=== PATIENT | male | born 1955 | race Two or more races ===

== ENCOUNTER 2023-12-11 00:14 | Emergency (ER) | payer MEDICARE, MEDICAID, SELFPAY ==
--- NOTE | 2023-12-11 | ECG_ITS ---
Test Reason : htn Blood Pressure : / mmHG Vent. Rate : 063 BPM Atrial Rate : 063 BPM P-R Int : 174 ms QRS Dur : 086 ms QT Int : 474 ms P-R-T Axes : 064 016 050 degrees QTc Int : 485 ms Normal sinus rhythm Moderate voltage criteria for LVH, may be normal variant ( Sokolow-Castillo , Flynn product ) Cannot rule out Anterior infarct , age undetermined Abnormal ECG No previous ECGs available Referred By: Jaime Moore Electronically Signed By:EDGAR MYLES
--- NOTE | ~2023-12-11 | CT_ITS ---
EXAMINATION: CT HEAD WITHOUT CONTRAST CT CERVICAL SPINE WITHOUT CONTRAST CLINICAL INFORMATION: Fall. Pain. COMPARISON: None available. TECHNIQUE: Contiguous axial imaging was performed through the head and cervical spine without intravenous administration of contrast. Sagittal and coronal reformatted images also obtained. This CT examination was performed using dose optimization techniques as appropriate, variously including the following: *Automated exposure control *Adjustment of mA and/or kV according to patient size (this includes techniques or standardized protocols for targeted exams where dose is matched to indication/reason for exam; i.e. extremities or head) *Use of iterative reconstruction technique DLP: 1109 mGy-cm FINDINGS: The lateral, third and fourth ventricles are normally outlined. The cortical sulci and basal cisterns are normally outlined as well. There is extensive bilateral periventricular and central white matter diminished attenuation. There is no acute territorial defect, hemorrhage or midline shift. The pituitary gland is prominent. Calvarium: Intact. Maxillofacial sinuses and mastoids: Maxillofacial sinuses are clear. There are minimal bilateral mastoid effusions. Cervical spine: The alignment is normal. There is diffuse vtio-sk-ocdzagyr cervical disc degenerative change with loss of disc space, endplate change and multilevel posterior osteophytes associated with diffuse aqgx-yk-vqbcakmj facet osteoarthritic hypertrophic change with multilevel mild spinal canal and multilevel ijln-cs-qzyrgnwo neuroforaminal narrowing. The bony structures are osteopenic. There is no evidence for fracture. The soft tissues are unremarkable. The visualized upper lung villagomez are clear. CT/CT head/brain wo IV con IMPRESSION: 1. No acute intracranial process seen. Prominent pituitary gland of uncertain significance. 2. There is extensive bilateral periventricular and central white matter diminished attenuation which is nonspecific but likely to represent microvascular disease. 3. No acute cervical spine fracture or malalignment. There is diffuse osteopenia. There are degenerative disc changes and facet joint arthropathy as described above.
--- NOTE | ~2023-12-11 | CT_ITS ---
EXAMINATION: CT HEAD WITHOUT CONTRAST CT CERVICAL SPINE WITHOUT CONTRAST CLINICAL INFORMATION: Fall. Pain. COMPARISON: None available. TECHNIQUE: Contiguous axial imaging was performed through the head and cervical spine without intravenous administration of contrast. Sagittal and coronal reformatted images also obtained. This CT examination was performed using dose optimization techniques as appropriate, variously including the following: *Automated exposure control *Adjustment of mA and/or kV according to patient size (this includes techniques or standardized protocols for targeted exams where dose is matched to indication/reason for exam; i.e. extremities or head) *Use of iterative reconstruction technique DLP: 1109 mGy-cm FINDINGS: The lateral, third and fourth ventricles are normally outlined. The cortical sulci and basal cisterns are normally outlined as well. There is extensive bilateral periventricular and central white matter diminished attenuation. There is no acute territorial defect, hemorrhage or midline shift. The pituitary gland is prominent. Calvarium: Intact. Maxillofacial sinuses and mastoids: Maxillofacial sinuses are clear. There are minimal bilateral mastoid effusions. Cervical spine: The alignment is normal. There is diffuse ujyv-sw-znzvlebh cervical disc degenerative change with loss of disc space, endplate change and multilevel posterior osteophytes associated with diffuse ldla-dq-vvgtzvou facet osteoarthritic hypertrophic change with multilevel mild spinal canal and multilevel qxii-tq-olxnvbht neuroforaminal narrowing. The bony structures are osteopenic. There is no evidence for fracture. The soft tissues are unremarkable. The visualized upper lung villagomez are clear. CT/CT cervical spine wo IV con IMPRESSION: 1. No acute intracranial process seen. Prominent pituitary gland of uncertain significance. 2. There is extensive bilateral periventricular and central white matter diminished attenuation which is nonspecific but likely to represent microvascular disease. 3. No acute cervical spine fracture or malalignment. There is diffuse osteopenia. There are degenerative disc changes and facet joint arthropathy as described above.
[2023-12-11 00:21] VITALS: BP 200/100; O2SAT 96; BMI 21.0
[2023-12-11 00:29] VITALS: BP 219/112; PULSE 67; RESP 14; TEMP 36.7; O2SAT 98
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
[2023-12-11 01:58] VITALS: BP 197/93; PULSE 69; RESP 15; O2SAT 96
[2023-12-11 03:43] VITALS: BP 151/80; PULSE 71; RESP 17; O2SAT 97
--- NOTE | 2023-12-11 03:48 | PC.NURSE ---
urinal at bedside
[2023-12-11 06:00] VITALS: BP 170/83; PULSE 59; RESP 18; TEMP 36.8; O2SAT 98
--- OUTSIDE RECORDS SUMMARY | 2023-12-11 06:38 | XMS_ITS | Continuity of Care Document ---
Author Name Unknown Organization [facility] ter Address [address] [place] [id number] Care Team Providers Care City Route Driver Name Role Phone Claude Choi MD Primary Care Physician Encounter [facility] Date(s): 08/15/23 - 08/16/[address] [id number]- Discharge Disposition: A-D/C Home Attending Physician: Tarun STUART, Chiquita Caballero Admitting Physician: Mercedes Alvarez MD Referring Physician: Not on Staff, Referring MD Allergies, Adverse Reactions, Alerts Substance Reaction Severity Status ibuprofen Vesiculobullous rash Active hydrOXYzine Vesiculobullous rash Active Librium Vesiculobullous rash Active acetaminophen swelling Acute edema Rash Active amLODIPine Edema Active Immunizations Given and Recorded Vaccine Date Status Refusal Reason [id number] 12y+ bivalent booster vax 09/02/22 Given influenza virus vaccine, inactivated 09/02/22 Give n influenza virus vaccine, inactivated 10/21/21 Give n influenza virus vaccine, inactivated 09/10/19 Saeid rded influenza virus vaccine, inactivated 08/17/16 Give n influenza virus vaccine, inactivated 07/30/14 Give n influenza virus vaccine, inactivated 1 11/07/13 Gi jonathan pneumococcal 23-valent vaccine 11/26/21 Given pneumococcal 23-valent vaccine 2 11/07/13 Given SARS-CoV-2 (COVID-19) mRNA BNT-162b2 vac 11/11/21 Given SARS-CoV-2 (COVID-19) mRNA BNT-162b2 vac 10/21/21 Given tetanus/diphtheria/pertussis, acel(Tdap) 3 11/13/13 Given 1Result Comment: [11/07/2013] Ordered by Thaddeus Uriostegui MD LOWER SITE 2Result Comment: [11/07/2013] Ordered by Thaddeus Uriostegui MD [facility] STOCK 3Result Comment: [11/13/2013] Ordered by Thaddeus Uriostegui MD [facility] STOCK Medications Augmentin 875 mg-125 mg oral tablet 1 tablet, By Mouth, Every 12 hours, for 5 days, # 10 tablet, 0 Refills, Acute 08/21/23 9:51:00 EDT,08/16/23 9:51:00 EDT, Tablet, [facility], Partial fill upon patient request if the prescription is for a schedule II opioid drug., 168, c... Start Date: 08/16/23 Stop Date: 08/21/23 Status: Ordered chlorthalidone 25 mg oral tablet 25 mg, 1, tablet, By Mouth, Daily, # 30 tablet, Refills 3, Tot. Refills 3, Maintenance, 08/16/23 12:10:00 EDT, Route to Pharmacy Electronically, [facility]acy #[id number], 168, cm, 08/16/23 5:07:00 EDT, Height, 59, kg, 08/16/23 5:07:00 EDT, Dry Weight Start Date: 08/16/23 Stop Date: 12/14/23 Status: Ordered hydrALAZINE Inj 10 mg, Injection, IV Push Slowly, Once, STAT, 08/16/23 12:08:00 EDT, Stop date 08/16/23 12:08:00 EDT Start Date: 08/16/23 Stop Date: 08/16/23 Status: Completed lisinopril 40 mg oral tablet 1 tablet = 40 mg, By Mouth, Daily, dose increase, # 30 tablet, 3 Refills, Maintenance, 08/16/23 12:10:00 EDT, Tablet, [facility]/pharmacy #[id number], Partial fill upon patient request if the prescription is for a schedule II opioid drug., 168, cm, 08/16/23 5:07:0... Start Date: 08/16/23 Stop Date: 12/14/23 Status: Ordered magnesium oxide 400 mg oral tablet 1 tablet = 400 mg, By Mouth, Daily, # 90 tablet, 3 Refills, Maintenance, 11/23/22 23:08:00 EST, [facility]/pharmacy #[id number], home delivery, 168, cm, 11/23/22 15:18:00 EST, Height, 65.45, kg, 11/23/22 15:18:00EST, Dry Weight Start Date: 11/23/22 Status: Ordered pantoprazole 40 mg oral delayed release tablet 1 tablet = 40 mg, By Mouth, Daily, PRN heartburn, only as needed for symptoms., # 15 tablet, 5 Refills, Maintenance, 12/30/20 17:02:00 EST, EC Tablet, home delivery please, 168, cm, 12/30/20 14:40:00EST, Height, 64.09, kg, 07/29/20 13:46:00 EDT, Dry... Start Date: 12/30/20 Status: Ordered sildenafil 100 mg oral tablet 1 tablet = 100 mg, By Mouth, Daily, PRN for erectile dysfunction, # 5 tablet, 11 Refills, Maintenance, 11/23/22 23:08:00 EST, Tablet, [id number], 168, cm, 11/23/22 15:18:00 EST, Height, 65.45, kg, 11/23/22 15:18:00 EST, Dry Weight Start Date: 11/23/22 Status: Ordered Problem List Condition Confirmation Course Effective Dates Status H ealth Status Informant Anxiety Confirmed Active Atherosclerosis of aorta- plaque on US Confirmed 2017 Active Essential hypertension Confirmed Active CKD (chronic kidney disease) stage 2, GFR 60-89 ml/min Confirmed Active Chronic sciatica of right side Confirmed Active Depressive disorder Confirmed Active GERD (gastroesophageal reflux disease) Confirmed Active Cardiac murmur Confirmed Active Low back pain Confirmed Active Opioid use disorder, severe, in early remission, on maintenance therapy, dependence Confirmed Active [phone] Hall Supervisor Ashly Coleman Confirmed Active Peptic ulcer without hemorrhage, without perforation AND without obstruction Confirmed Active Cannabis use disorder, moderate Confirmed Active Tobacco use disorder Confirmed Active Urinary incontinence Confirmed Active Results Radiology Reports * Exam Date Time Procedure Performing Provider Status 08/15/23 12:37 AM Chest Portable Xiomara Salguero (Verified) Notes: (Chest Portable) Reason For Exam: Shortness of Breath RESULT: Chest Portable Chest Portable Hx of Present Illness: Unresponsive, accidental Heroin OD; Reason: Shortness of Breath; Clinical Question(s): CHF COMPARISON: None. FINDINGS: LINES AND TUBES: None. LUNGS AND PLEURA: Patchy bibasilar opacities right worse than left. Normal pulmonary vascularity. No pleural effusion. No pneumothorax. HEART, MEDIASTINUM AND MAYTE: Heart is normal in size. Normal mediastinal and hilar contour. BONES AND SOFT TISSUES: No acute abnormality. IMPRESSION: Patchy bibasilar opacities right worse than left, may represent pneumonia/aspiration. I have personally reviewed the images and I agree with this report. WSN: [id number] Ordering Physician: Maryjo Limon Dictated By: Romain Leal MD Dictated Date/Time: 08/15/23 8:43 am Reviewed By: Fadi Miller MD, V Signed By: Fadi Miller MD, V Signed Date/Time: 08/15/23 8:48 am Transcribed By: LORENA Transcribed Date/Time: 08/15/23 8:34 am Vital Signs Most recent to oldest [Reference Range]: 1 2 3 Height 168 cm (08/16/23 5:07 AM) 168 cm (08/14/23 10:46 AM) Weight 59 kg (08/16/23 5:07 AM) 59 kg (08/14/23 10:46 AM) Oxygen Saturation [94-100 %] 99 % (08/16/23 12:35 PM) 97 % (08/16/23 11:14 AM) 98 % (08/16/23 10:28 AM) Pulse Rate [55-90 bpm] 75 bpm (08/16/23 12:35 PM) 81 bpm (08/16/23 11:14 AM) 84 bpm (08/16/23 10:28 AM) Body Mass Index [18.5-24.99 kg/m2] 20.9 kg/m2 (08/16/23 5:07 AM) Blood Pressure [90-138/55-84 mm Hg] 183/99mm Hg *H* (08/16/23 12:35 PM) 180/89mm Hg *H* (08/16/23 11:14 AM) 171/85mm Hg *H* (08/16/23 10:28 AM) Respiratory Rate [16-30 br/min] 16 br/min (08/16/23 12:35 PM) 16 br/min (08/16/23 11:14 AM) 16 br/min (08/16/23 10:28 AM) Temperature [96.8-100.4 DegF] 98.5 DegF (08/14/23 10:54 AM) Liters per Minute 3 L/min (08/15/23 9:05 AM) 3 L/min (08/15/23 1:44 AM) 3 L/min (08/14/23 5:00 PM) Mode of Delivery (Oxygen) Room air (08/16/23 12:35 PM) Room air (08/16/23 11:14 AM) Room air (08/16/23 10:28 AM) Blood pressure sites Arm, right (08/14/23 10:54 AM) Temperature Route Oral (08/14/23 10:54 AM) Dry Weight 59 kg (08/16/23 5:07 AM) 59 kg (08/14/23 10:46 AM) Weight Obtained Via Patient/family state d (08/14/23 10:46 AM) Social History Social History Type Response Tobacco Other: a pack a day. Sex Admission evaluation note * Kim STUART, [facility]: MODIFY, MODIFY, MODIFY, PERFORM, MODIFY, MODIFY Event Display: Admission Note Authored Date: [id number] Patient: ??JOVAN LOPEZ ? Age:??67 Years?Sex:??Male?:??1955?? Chief Complaint/Reason for Consultation Call for unresponsive accidental Cocaine OD, narcan IN by fire dept, IV narcan by EMS. History of Present Illness This is a 67-year-old gentleman with prior history of opioid use disorder coming today with a suspected overdose. ?? He was found by EMS unresponsive, given intranasal Narcan with improvement in mental status. ??Apart from that patient was quite somnolent however arousable on my exam hence could not obtain a very detailed history. ??He does report snorting cocaine in the morning however does not have much recollection. ??Denies any IVDU or any other type of opioid use. ??In terms of alcohol use that he may havehad some alcohol last night but does not drink excessive amounts. ??Endorsing a cough however no fever, chills, pain. ?? On presentation the ED he is afebrile hemodynamically stable and initially saturating appropriatelyon room air. ??Later on in the ED he is noted to be hypoxic to 84% on room air was transitioned to 3 L nasal cannula. ??Chest x-ray obtained showing infiltrate in the right lower lobe, given concernsfor pneumonia he was started on ceftriaxone azithromycin in the ED. ??Lab work-up showing mild leukocytosis, stable anemia, normal electrolytes, stable creatinine. Review of Systems not able to obtain full ROS given pt condition Objective Vital Signs?? Temperature: 98.5 DegF (08/14/23 10:54:00) Temperature Route: Oral (08/14/23 10:54:00) Pulse Rate: 83 bpm (08/14/23 14:26:00) Heart Rate Monitored: 68 bpm (08/15/23 01:44:00) Respiratory Rate: 16 br/min (08/15/23 01:44:00) Systolic Blood Pressure:??169 mm Hg??High (08/15/23 01:44:00) Diastolic Blood Pressure: 82 mm Hg (08/15/23 01:44:00) Blood pressure sites: Arm, right (08/14/23 10:54:00) Mean Arterial Pressure: 113 mm Hg (08/14/23 10:54:00) Pulse Pressure: 62 mm Hg (08/14/23 10:54:00) Oxygen Saturation: 99 % (08/15/23 01:44:00) Liters per Minute: 3 L/min (08/15/23 01:44:00) Mode of Delivery (Oxygen): Nasal cannula (08/15/23 01:44:00) End Tidal CO2: 42 mm Hg (08/14/23 17:00:00) ? Physical Exam General:??Drowsy but arousable Eyes: No scleral icterus Respiratory: Clear to auscultation, no rhonchi, wheeze, no tachypnea, bilaterally equal respiratoryeffort Clear to auscultation, no rhonchi, wheeze, no tachypnea, bilaterally equal respiratory effort GI: Soft nontender nondistended Cardiovascular: S1-S2 regular Neuro: Seen moving all extremities, grossly nonfocal Skin: No obvious rash, erythema, evidence of infectio Assessment/Plan ??This is a 67-year-old gentleman with prior history of opioid use disorder coming today with a suspected overdose.?? Found unresponsive by EMS, improved with intranasal Narcan.?Found to be hypoxic on room air, chest x-ray with concerns of right lobe infiltrate. ?? Opioid overdose found??unresponsive by EMS, improved with intranasal Narcan.?? Endorses cocaine use??however denied??opioid use.?? History currently slightly limited??secondary to patient condition Continues to be slightly drowsy however easily arousable Lab work-up generally unremarkable apart from very mildly elevated white count. ?? Plan ?Addiction medicine consult ?Avoid any sedative medications ?Monitor??vitals ?Obtain full U tox ?? Community-acquired pneumonia ??he has been endorsing??few days of shortness of breath, cough Chest x-ray with possible right lower lobe infiltrate Has been afebrile here,??very mild leukocytosis ?? Given clinical symptoms and infiltrate will cover with antibiotics ?? Plan ?Continue ceftriaxone and azithromycin ?Monitor O2 saturation, maintain more than 92% ?Monitor for fevers, monitor white count ? Coffee ground emesis? In the ED patient had an episode of emesis which appeared to be??coffee- ground??raising concerns for an upper GI bleed Patient does have a history of peptic ulcer disease No other evidence of active bleeding,??no further episodes of vomiting.?? Hemoglobin??at baseline ?? Plan ?Continue pantoprazole 40 every 12 for now ??? If any further episodes of??active bleeding??or downtrending hemoglobin, ??consult GI ?Repeat CBC in the a.m. ?Monitor for further episodes of??active bleeding ? Medication reconciliation: Please review home medications the patient??when his mental status improves. ? Quality measures Code: Full Diet: Cardiac DVT prophylaxis:??Currently holding given concern for??coffee-ground emesis in the ED. ?? Mercedes Alvarez [id number] Histories Allergies Allergies ?(Active and Proposed Allergies Only) acetaminophen? (Severity: Unknown severity, Onset: Unknown) ?Reactions: Rash, Acute edema, swelling amLODIPine? (Severity: Unknown severity, Onset: Unknown) ?Reactions: Edema ibuprofen? (Severity: Unknown severity, Onset: Unknown) ?Reactions: Vesiculobullous rash Librium? (Severity: Unknown severity, Onset: Unknown) ?Reactions: Vesiculobullous rash hydrOXYzine? (Severity: Unknown severity, Onset: Unknown) ?Reactions: Vesiculobullous rash ? Past Medical History/Problem List Active Problems??(17) Anxiety Atherosclerosis of aorta- plaque on US Cannabis use disorder, moderate Cardiac murmur [phone] Hall Supervisor Ashly Coleman Chronic sciatica of right side CKD (chronic kidney disease) stage 2, GFR 60-89 ml/min Depressive disorder Essential hypertension GERD (gastroesophageal reflux disease) Hepatic cirrhosis by Fibrosure due to chronic hepatitis C infection Low back pain Opioid use disorder, severe, in early remission, on maintenance therapy, dependence Peptic ulcer without hemorrhage, without perforation AND without obstruction PTSD (post-traumatic stress disorder) Tobacco use disorder Urinary incontinence ? Past Surgical History Colonoscopy, flexible, proximal to splenic flexure; diagnostic, with or without collection of specimen(s) by brushing or washing, with or without colon decompression (separate procedure): 09/04/14 Upper gastrointestinal endoscopy including esophagus, stomach, and either the duodenum and/or jejunum as appropriate; diagnostic, with or without collection of specimen(s) by brushing or washing (separate procedure): 09/04/14 ? Social History Alcohol Details:??Use: Current. ??Frequency: 1-2 times per week. ??Type: Wine. Details:??Use: Current. ??Frequency: 1-2 times per week. ??Type: Beer. ??Alcohol use in household: No. Home/Environment Details:??Living situation: Home/Independent. ??Lives with: Spouse. ??No Homeless/Fpc:. ??Feelsunsafe at home: No. ??Safe place to go: Yes. ??Domestic violence in household: No. ??Alcohol in household: No. ??Firearms in household: No. ??Substance abuse in household: No. ??Smoker in household: No. ??Major illness in household: No. Substance Abuse Details:??Use: Past. ??Type: Marijuana. Tobacco Details:??Other: a pack a day. Details:??Use: 10 or more cigarettes (1/2 pack or more)/day in last 30 days. ??Exposure to Secondhand Smoke: No. Details:??Use: 10 or more cigarettes (1/2 pack or more)/day in last 30 days. ??Tobacco user in household: Yes. Details:??Use: 5-9 cigarettes (between 1/4 to 1/2 pack)/day in last 30 days. Details:??Current every day smoker, Type: Cigarettes. ??Tobacco use times per day: 2 CIGARETTES PERDAY. ? Family History No family history recorded. ? Medications Home Medications Chlorthalidone (chlorthalidone 25 mg oral tablet)?25?Milligram?1?tablet?By Mouth?Daily Lisinopril (lisinopril 40 mg oral tablet)?1?tab(s)?40?Milligram?By Mouth?Daily?dose increase Magnesium Oxide (magnesium oxide 400 mg oral tablet)?1?tab(s)?400?Milligram?By Mouth?Daily Pantoprazole (pantoprazole 40 mg oral delayed release tablet)?1?tab(s)?40?Milligram?By Mouth?Daily?as needed?heartburn?only as needed for symptoms. Sildenafil (sildenafil 100 mg oral tablet)?1?tab(s)?100?Milligram?By Mouth?Daily?as needed?for erectile dysfunction ? Results Recent Labs BLOOD COUNT & DIFF WBC 11.5 k/mm3 (High)?? 08/14/2023 23:35 RBC 3.30 m/mm3 (Low)?? 08/14/2023 23:35 Hgb 9.3 Gm/dL (Low)?? 08/14/2023 23:35 Hct 29.9 % (Low)?? 08/14/2023 23:35 MCV 90.6 femtoliters ()?? 08/14/2023 23:35 MCH 28.2 pg ()?? 08/14/2023 23:35 MCHC 31.1 g/dL (Low)?? 08/14/2023 23:35 Platelet Count 339 k/mm3 ()?? 08/14/2023 23:35 RDW-SD 49.0 femtoliters (High)?? 08/14/2023 23:35 MPV 9.5 femtoliters ()?? 08/14/2023 23:35 Nucleated RBC (Automated) 0.0 #/100 WBC'S ()?? 08/14/2023 23:35 Abs. NRBC 0.0 k/mm3 ()?? 08/14/2023 23:35 Abs. Neut 8.1 k/mm3 (High)?? 08/14/2023 23:35 Abs. Lymph 2.3 k/mm3 ()?? 08/14/2023 23:35 Abs. [place] 0.9 k/mm3 ()?? 08/14/2023 23:35 Abs. Eo 0.1 k/mm3 ()?? 08/14/2023 23:35 Abs. Baso 0.0 k/mm3 ()?? 08/14/2023 23:35 Neut % 70.1 % ()?? 08/14/2023 23:35 Lymph % 20.3 % ()?? 08/14/2023 23:35 [place] % 8.2 % ()?? 08/14/2023 23:35 Eos % 0.6 % ()?? 08/14/2023 23:35 Baso % 0.3 % ()?? 08/14/2023 23:35 Imm Gran 0.5 % ()?? 08/14/2023 23:35 Abs. Imm Gran 0.1 k/mm3 ()?? 08/14/2023 23:35 ?? CHEM GENERAL Sodium 139 mmol/L ()?? 08/14/2023 23:35 Potassium 4.8 mmol/L ()?? 08/14/2023 23:35 Chloride 106 mmol/L ()?? 08/14/2023 23:35 Bicarbonate Level 23 mmol/L ()?? 08/14/2023 23:35 Anion Gap 10 ()?? 08/14/2023 23:35 Glucose Level 83 mg/dL ()?? 08/14/2023 23:35 Glucose, POC 83 mg/dL ()?? 08/14/2023 23:18 BUN 23 mg/dL ()?? 08/14/2023 23:35 Creatinine-Blood 1.4 mg/dL (High)?? 08/14/2023 23:35 Estimated GFR Creatinine 57 ML/MIN/1.73 M2 ()?? 08/14/2023 23:35 Calcium 8.6 mg/dL ()?? 08/14/2023 23:35 Protein, Total 6.7 Gm/dL ()?? 08/14/2023 23:35 Albumin 3.6 Gm/dL ()?? 08/14/2023 23:35 AG Ratio 1.2 ()?? 08/14/2023 23:35 Alkaline Phosphatase 148 units/L (High)?? 08/14/2023 23:35 AST (SGOT) 25 units/L ()?? 08/14/2023 23:35 ALT (SGPT) 22 units/L ()?? 08/14/2023 23:35 Bilirubin, Total 0.5 mg/dL ()?? 08/14/2023 23:35 ?? URINE OTHER Est Creatinine Clearance 42.73 mL/min ()?? 08/15/2023 00:43 ?? VIROLOGY COVID-19 PCR Specimen Source NASAL ()?? 08/15/2023 02:30 COVID-19 PCR Result NEGATIVE ()?? 08/15/2023 02:30 ? EKG study * Event Display: ECG 12-Lead Authored Date: Please click on pdf link to open report * Event Display: ECG 12-Lead Authored Date: Ventricular Rate: 81 BPM Atrial Rate: 81 BPM P-R Interval: 170 ms QRS Duration: 78 ms Q-T Interval: 438 ms QTC Calculation(Bazett): 508 ms P Cartwright: 73 degrees R Cartwright: 13 degrees T Cartwright: 46 degrees Normal sinus rhythm Prolonged QT Abnormal ECG When compared with ECG of 13-MAR-2014 14:09, Vent. rate has increased BY 35 BPM QT has lengthened Confirmed by BETH STUART, [facility] ([id number]) on 08/16/2023 3:11:38 PM Howard: BETH STUART,[facility] Progress note * Tarun STUART, Chiquita Caballero: PERFORM Event Display: Progress Note Hospital Authored Date: Patient: ??JOVAN LOPEZ ? Age:??67 Years?Sex:??Male?:??1955?? Assessment/Plan Discharge Planning:? Admitted today pl see H & P Polysubstance abuse including cocaine ?? H & Hs table ?? Plan: Watch for bleeding Continue PPI SW cpnsult ?? Consult note * Kanika Torres: PERFORM, MODIFY Event Display: Consultation Note Authored Date: Patient: ??JOVAN LOPEZ ? Age:??67 Years?Sex:??Male?:??1955?? Reason for Consultation Addiction Med Consult - opioid use Requested by??Dr Mercedes Alvarez History of Present Illness Jovan Lopez is a 67 yo male with a PMHx of OUD, CKD stage 2, depression/anxiety, PTSD, hepatic cirrhosis. He was admitted 08/15 after BIBA for overdose concern. Pt was given Narcan by EMS with improvement in mental status. Pt was not able to provide much history on admission. Tox screen positive for marijuana and cocaine, negative for opioids, though fentanyl not screened for. ?? Met with pt this morning while he was in the ED. Difficult to keep pt awake through interview, continually falling asleep in between questions. Tends to ramble a bit and can be difficult to interrupt as well. Detailed history limited. Pt states he had been intending to use cocaine, and just cocaine, and ended up here. He says that this is the 2nd time something like this has happened to him with??cocaine, and says he will not be doing it again. You only get three strikes, and I'm up to 2 already. He does also endorse having some bad influences around him at home. He does mention that he had a bigger issue with opiates years ago, and used to use opioids recreationally on a daily basis back then. He reports he has not been using opioids??for quite some time now, but unable to determine exact details. Pt does also drink ETOH on a fairly regular basis. He is not sure he would be interested in starting MAT for ETOH cravings or pursuing any specific resources to help with his substance use issues, but will consider it. Did offer pt the option of taking some narcan home with him just to have on hand, but pt declined. Review of Systems Reporting feeling fatigued Physical Exam Vitals & Measurements HR:??66??(Monitored)?? RR:??14?? BP:??121/71?? SpO2:??98%?? General:??well developed, well nourished,??appears to be stated age.??Breathing is??even and unlabored.??In no acute distress,??no diaphoresis. Somnolent. Mental Status Exam: Appearance:??casual?? Attitude:??cooperative? Eye contact:??normal Motor activity:??calm, no aberrant movements? Mood:??euthymic? Affect:??congruent? Speech:??fluent, unimpaired? Judgment:??appears intact? Insight:??appears intact? Thought process:??linear? Reliability:??likely reliable source? Fund of knowledge:??intact Assessment/Plan Opioid overdose Cocaine use (F14.90):??. Briefly reviewed risks of cocaine use with pt - seizures, psychosis, heart attack, stroke, organ damage. Cocaine also carries the risk of being laced/contaminated with fentanyl or other opioids, leading to an overdose. This was discussed with the pt, and that this is why he likely improved 2/2 narcan administration. Overdose can obviously lead to but can also lead to permanent neurological damage. Pt receptive, but also declining narcan script to take home with him. ?? Alcohol use (Z78.9):??. Pt did endorse regular ETOH use, but unclear if he considers this to be a problem for him, and amounts are unclear. We did briefly discuss??some MAT options for ETOH, as well as what resources are available for us to refer him to (including to help with his cocaine use),??but pt was??not sure about pursuing anything.?? Will try to check in again if pt is still admitted through this week. ?? Can monitor for ETOH w/d symptoms and begin a CIWA + PRN ativan if needed. ?? Update sent via [employer] to Dr Mcneil. Thank you for allowing us to participate in the care of this patient. Please contact me with any further questions or concerns.?? Problem List/Past Medical History Ongoing Anxiety Atherosclerosis of aorta- plaque on US Cannabis use disorder, moderate Cardiac murmur [phone] Hall Supervisor Ashly Coleman Chronic headaches Chronic sciatica of right side CKD (chronic kidney disease) stage 2, GFR 60-89 ml/min Depressive disorder Essential hypertension GERD (gastroesophageal reflux disease) Hepatic cirrhosis by Fibrosure due to chronic hepatitis C infection Hepatitis C, chronic. Hx prior hep C cleared SVR 03/2017, gt 1B, F4 by Fibrosure 2017, biopsy ?1999 ?<F2 Immunity to hepatitis A virus determined by serologic test Immunity to hepatitis B virus demonstrated by serologic test Low back pain Opioid use disorder, severe, in early remission, on maintenance therapy, dependence Peptic ulcer without hemorrhage, without perforation AND without obstruction PTSD (post-traumatic stress disorder) Tobacco use disorder Urinary incontinence Procedure/Surgical History ???Colonoscopy, flexible, proximal to splenic flexure; diagnostic, with or without collection of specimen(s) by brushing or washing, with or without colon decompression (separate procedure) (09/04/2014)???Upper gastrointestinal endoscopy including esophagus, stomach, and either the duodenum and/or jejunum as appropriate; diagnostic, with or without collection of specimen(s) by brushing or washing(separate procedure) (09/04/2014) Medications Inpatient Azithromycin Tablet, 500 mg, By Mouth, Daily Ceftriaxone Inj, 1 Gm, IVPB, Every 24 hours Docusate Sodium Capsule, 100 mg= 1 capsule, By Mouth, 2 times a day, PRN Melatonin Tablet, 3 mg, By Mouth, Daily at bedtime, PRN MiraLax Powder, 17 Gm= 1 pack/packet, By Mouth, Daily, PRN NaCL 0.9% Flush, 3 mL, IV Push, Every 8 hours NaCL 0.9% Flush, 3 mL, IV Push, Every 8 hours, PRN Pantoprazole Inj, 40 mg, IV Push Slowly, Every 12 hours Robitussin DM Liquid, 10 mL, By Mouth, Every 4 hours, PRN Senna Tablet, 8.6 mg= 1 tablet, By Mouth, 2 times a day, PRN Simethicone Tablet, 80 mg, Chew, 3 times a day, PRN Home chlorthalidone 25 mg oral tablet, 25 mg= 1 tablet, By Mouth, Daily, 3 refills lisinopril 40 mg oral tablet, 40 mg= 1 tablet, By Mouth, Daily, 3 refills magnesium oxide 400 mg oral tablet, 400 mg= 1 tablet, By Mouth, Daily, 3 refills pantoprazole 40 mg oral delayed release tablet, 40 mg= 1 tablet, By Mouth, Daily, PRN, 5 refills sildenafil 100 mg oral tablet, 100 mg= 1 tablet, By Mouth, Daily, PRN, 11 refills Allergies Librium??(Vesiculobullous rash) acetaminophen??(swelling, Acute edema, Rash) amLODIPine??(Edema) hydrOXYzine??(Vesiculobullous rash) ibuprofen??(Vesiculobullous rash) Social History Alcohol Use: Current. Frequency: 1-2 times per week. Type: Beer. Alcohol use in household: No. Home/Environment Living situation: Home/Independent. Lives with: Spouse. No Homeless/Fpc:. Feels unsafe at home:No. Safe place to go: Yes. Domestic violence in household: No. Alcohol in household: No. Firearms in household: No. Substance abuse in household: No. Smoker in household: No. Major illness in household: No. Substance Abuse Use: Past. Type: Marijuana. Tobacco Other: a pack a day. Immunizations Vaccine Date Status [id number] 12y+ bivalent booster vax 09/02/2022 Given influenza virus vaccine, inactivated 09/02/2022 Given pneumococcal 23-valent vaccine 11/26/2021 Given SARS-CoV-2 (COVID-19) mRNA BNT-162b2 vac 11/11/2021 Given influenza virus vaccine, inactivated 10/21/2021 Given SARS-CoV-2 (COVID-19) mRNA BNT-162b2 vac 10/21/2021 Given influenza virus vaccine, inactivated 09/10/2019 Recorded influenza virus vaccine, inactivated 08/17/2016 Given influenza virus vaccine, inactivated 07/30/2014 Given tetanus/diphtheria/pertussis, acel(Tdap) 11/13/2013 Given Comments : [11/13/2013] Ordered by Thaddeus Uriostegui MD [facility] pneumococcal 23-valent vaccine 11/07/2013 Given Comments : [11/07/2013] Ordered by Thaddeus Uriostegui MD [facility] influenza virus vaccine, inactivated 11/07/2013 Given Comments : [11/07/2013] Ordered by Thaddeus Uriostegui MD [facility] Note * Tarun STUART, Chiquita Caballero: PERFORM Event Display: Discharge/Transfer Note Hospital Authored Date: [id number] Patient: ??JOVAN LOPEZ ? Age:??67 Years?Sex:??Male?:??1955?? Patient Information Discharge Location: [facility] Primary Care Physician: Claude Choi MD Admit Date/Time: 08/15/23 01:49 Discharge Disposition Discharge Disposition: ?? Discharge Diagnosis Alcohol use (Z78.9) Cocaine use (F14.90) Aspiration pneumonia ?? _ Discharge Medications Amoxicillin-Clavulanate (Augmentin 875 mg-125 mg oral tablet)?1?tab(s)?By Mouth?Every 12 hours?for 5?Days Chlorthalidone (chlorthalidone 25 mg oral tablet)?25?Milligram?1?tablet?By Mouth?Daily Lisinopril (lisinopril 40 mg oral tablet)?1?tab(s)?40?Milligram?By Mouth?Daily?dose increase Magnesium Oxide (magnesium oxide 400 mg oral tablet)?1?tab(s)?400?Milligram?By Mouth?Daily Pantoprazole (pantoprazole 40 mg oral delayed release tablet)?1?tab(s)?40?Milligram?By Mouth?Daily?as needed?heartburn?only as needed for symptoms. Sildenafil (sildenafil 100 mg oral tablet)?1?tab(s)?100?Milligram?By Mouth?Daily?as needed?for erectile dysfunction ? Quality Measures Tobacco Use Treatment:? Medications Started Augmentin Allergies Allergies ?(Active and Proposed Allergies Only) acetaminophen? (Severity: Unknown severity, Onset: Unknown) ?Reactions: Rash, Acute edema, swelling amLODIPine? (Severity: Unknown severity, Onset: Unknown) ?Reactions: Edema ibuprofen? (Severity: Unknown severity, Onset: Unknown) ?Reactions: Vesiculobullous rash Librium? (Severity: Unknown severity, Onset: Unknown) ?Reactions: Vesiculobullous rash hydrOXYzine? (Severity: Unknown severity, Onset: Unknown) ?Reactions: Vesiculobullous rash ? Hospital Course 67 y/o male with??history of opioid use disorder coming today with a suspected overdose. Found unresponsive by EMS, improved with intranasal Narcan. Found to be hypoxic on room air, chest x-ray with concerns of right lobe infiltrate. ?? Opioid overdose ??found unresponsive by EMS, improved with intranasal Narcan.?Lab work-up generally unremarkable apart from very mildly elevated white count. Remained stable Addiction medicine consulted and he is not interested in any help now does not want Narcan prescription ?? He is being discharged home in a stable and improved condition ? Community-acquired pneumonia ?he has been endorsing few days of shortness of breath, cough ??Chest x-ray with possible right lower lobe infiltrate ??Has been afebrile here, very mild leukocytosis Started on antibiotic WBC normalized procalcitonin 0.18 which does not support antibiotic use; however, given concern for aspiration will discharge on Augmentin for 5 days ?? O2 sat good on RA ?Plan ??? Continue Augmentin BID X 5 days ? Coffee ground emesis? ??In the ED patient had an episode of emesis which appeared to be coffee-ground raising concerns for an upper GI bleed ??Patient does have a history of peptic ulcer disease ??No other evidence of active bleeding, no further episodes of vomiting.??Hemoglobin at baseline ?? H & H stable ?Plan ???Will continue PPI ?? Hypertension: Will continue Home lisinopril and??chlorthalidone ?Code: Full ?? Objective Assessment and Plan ? Vital Signs?? Pulse Rate: 90 bpm (08/16/23 05:07:00) Heart Rate Monitored: 70 bpm (08/16/23 07:56:00) Respiratory Rate:??14 br/min??Low (08/16/23 07:56:00) Systolic Blood Pressure:??172 mm Hg??High (08/16/23 07:56:00) Diastolic Blood Pressure:??102 mm Hg??High (08/16/23 07:56:00) Mean Arterial Pressure: 119 mm Hg (08/16/23 05:07:00) Pulse Pressure: 95 mm Hg (08/16/23 05:07:00) Oxygen Saturation: 98 % (08/16/23 07:56:00) Mode of Delivery (Oxygen): Room air (08/16/23 07:56:00) Early Warning Score: 0 (08/16/23 07:56:50) ? . Physical Exam Awake, alert, oriented Lungs: Clear to auscultation bilateral, no wheezing no rales Heart: Regular rate and rhythm, no murmur, no rub or gallop Abdomen: Soft, nontender, nondistended; Bowel sounds present Extremity: No edema cyanosis clubbing Neurological: No focal deficit Psychiatric: Normal mood and affect Pending Results Add On Lab Order ordered on 08/16/2023 Hold Lavender Tube (BB) ordered on 08/14/2023 Patient Education Titles OUD Narcan Nasal Agency?? Follow-Up Appointments Added Follow Up ?Time Frame ?Comments Jimbo STUART, Claude Márquez?1 week Patient Instructions DIAGNOSIS: Accidental overdose ? Your specific PATIENT CARE INSTRUCTIONS (what to do / when to return): You received a dose of Narcan from the first responders because they were concerned that you may have overdosed. It is very likely that the cocaine you used was contaminated. If you continue to use opiates or other drugs, you should have a dose of Narcan nearby in the case that you accidentally overdose again. You should go home with your sister alicia, she has agreed that she would like for you to stay with her. She can help watch you to make sure that you do not have any trouble breathing. Call your PCP in 1-2 days to discuss follow up as needed. There are also phone numbers and resources below to try to seek treatment if you are interested in that. Home Health Face to Face ^HomeHealthFTF Results Discharge Labs BLOOD COUNT & DIFF WBC 10.2 k/mm3 ()?? 08/16/2023 05:18 RBC 3.06 m/mm3 (Low)?? 08/16/2023 05:18 Hgb 8.7 Gm/dL (Low)?? 08/16/2023 05:18 Hct 27.8 % (Low)?? 08/16/2023 05:18 MCV 90.8 femtoliters ()?? 08/16/2023 05:18 MCH 28.4 pg ()?? 08/16/2023 05:18 MCHC 31.3 g/dL (Low)?? 08/16/2023 05:18 Platelet Count 312 k/mm3 ()?? 08/16/2023 05:18 RDW-SD 49.1 femtoliters (High)?? 08/16/2023 05:18 MPV 9.5 femtoliters ()?? 08/16/2023 05:18 Nucleated RBC (Automated) 0.0 #/100 WBC'S ()?? 08/16/2023 05:18 Abs. NRBC 0.0 k/mm3 ()?? 08/16/2023 05:18 Abs. Neut 6.7 k/mm3 ()?? 08/16/2023 05:18 Abs. Lymph 2.4 k/mm3 ()?? 08/16/2023 05:18 Abs. [place] 0.9 k/mm3 ()?? 08/16/2023 05:18 Abs. Eo 0.1 k/mm3 ()?? 08/16/2023 05:18 Abs. Baso 0.0 k/mm3 ()?? 08/16/2023 05:18 Neut % 66.0 % ()?? 08/16/2023 05:18 Lymph % 23.4 % ()?? 08/16/2023 05:18 [place] % 8.6 % ()?? 08/16/2023 05:18 Eos % 1.0 % ()?? 08/16/2023 05:18 Baso % 0.2 % ()?? 08/16/2023 05:18 Imm Gran 0.8 % ()?? 08/16/2023 05:18 Abs. Imm Gran 0.1 k/mm3 ()?? 08/16/2023 05:18 ?? CHEM GENERAL Sodium 141 mmol/L ()?? 08/16/2023 05:18 Potassium 4.5 mmol/L ()?? 08/16/2023 05:18 Chloride 107 mmol/L ()?? 08/16/2023 05:18 Bicarbonate Level 26 mmol/L ()?? 08/16/2023 05:18 Anion Gap 8 ()?? 08/16/2023 05:18 Glucose Level 126 mg/dL (High)?? 08/16/2023 05:18 Glucose, POC 83 mg/dL ()?? 08/14/2023 23:18 BUN 20 mg/dL ()?? 08/16/2023 05:18 Creatinine-Blood 1.3 mg/dL (High)?? 08/16/2023 05:18 Estimated GFR Creatinine 63 ML/MIN/1.73 M2 ()?? 08/16/2023 05:18 Calcium 8.3 mg/dL (Low)?? 08/15/2023 04:24 Protein, Total 6.7 Gm/dL ()?? 08/14/2023 23:35 Albumin 3.6 Gm/dL ()?? 08/14/2023 23:35 AG Ratio 1.2 ()?? 08/14/2023 23:35 Alkaline Phosphatase 148 units/L (High)?? 08/14/2023 23:35 AST (SGOT) 25 units/L ()?? 08/14/2023 23:35 ALT (SGPT) 22 units/L ()?? 08/14/2023 23:35 Bilirubin, Total 0.5 mg/dL ()?? 08/14/2023 23:35 ?? MISC. CHEMISTRY Procalcitonin 0.18 ng/mL ()?? 08/16/2023 05:18 ? SEROLOGY INF DISEASE Legionella pneumophila Antigen NEGATIVE ()?? 08/15/2023 06:15 S. Pneumococcus Urinary Ag NEGATIVE ()?? 08/15/2023 06:15 ?? TOXICOLOGY/TDM Barbiturate Screen, Urine NONE DETECTED ()?? 08/15/2023 04:26 Cannabinoid Screen, Urine POSITIVE (Abnormal)?? 08/15/2023 04:26 Cocaine Metabolite Screen, Urine POSITIVE (Abnormal)?? 08/15/2023 04:26 Benzodiazepine Screen, Urine NONE DETECTED ()?? 08/15/2023 04:26 Opiate Screen, Urine NONE DETECTED ()?? 08/15/2023 04:26 ? URINE OTHER Est Creatinine Clearance 46.01 mL/min ()?? 08/16/2023 06:08 ? VIROLOGY COVID-19 PCR Specimen Source NASAL ()?? 08/15/2023 02:30 COVID-19 PCR Result NEGATIVE ()?? 08/15/2023 02:30 ? Microbiology ?? COVID-19 (2019 Novel Coronavirus) PCR?? Completed?? Source: Nasal Body Site: Nose Collected Dt/Tm: 08/15/2023 02:11 Last Updated Dt/Tm: 08/15/2023 04:28 ? 35 minutes spent on discharge * Maryjo Limon DO: PERFORM Event Display: Patient Education Leaflets Authored Date: [id number] OUD Narcan Nasal Agency ?? 556 ? QUICK START GUIDE Opioid Overdose Response Instructions ?? Use NARCAN Nasal Agency (naloxone hydrochloride) for known or suspected opioid overdose in adults and children. Important: For use in the nose only. Do not remove or test the NARCAN Nasal Agency until ready to use. ?? 1 - Identify Opioid Overdose and Check for Response? -?? Ask person if he or she is okay and shout name.? - Shake shoulders and firmly rub the middle of their chest ? - Check for signs of opioid overdose: ? - Will not wake up or respond to your voice or touch ? - Breathing is very slow, irregular, or has stopped ? - Center part of their eye is very small, sometimes called ???pinpoint pupils? - Lay the person on their back to receive a dose of NARCAN Nasal Agency. ?? 2 - Give NARCAN Nasal Agency? - Remove NARCAN Nasal Agency from the box. ? - Peel back the tab with the [place] to open the ?NARCAN Nasal Agency. ? - Hold the NARCAN nasal spray with your thumb on the bottom of the? plunger and your first and middle fingers on either side of the nozzle.? -?? Gently insert the tip of the nozzle into either nostril. ? - Tilt the person???s head back and provide support under the neck with your hand.? Gently insert the tip of the nozzle into one nostril, until your fingers ? on either side of the nozzle are against the bottom of the ? person???s nose. ? - Press the plunger firmly to give the dose of NARCAN Nasal Agency.? - Remove the NARCAN Nasal Agency from the nostril ? after giving the dose. ? 3 - Call for emergency medical help, Evaluate, and Support? - Get emergency medical help right away. ? - Move the person on their side (recovery position)? after giving NARCAN Nasal Agency. ? - Watch the person closely. ? - If the person does not respond by waking up, to voice or touch, or breathing normally ? another dose may be given. NARCAN Nasal Agency may be dosed every 2 to 3 minutes, ? if available. ? - Repeat Step 2 using a new NARCAN Nasal Agency to give another dose in the? other nostril . If additional NARCAN Nasal Sprays are available, repeat step 2 every2 ? to 3 minutes until the person responds or emergency medical help is received. ? Patient Care team information Care Team Personnel Name: Jimbo STUART, Claude Márquez Position: [facility] Physician - Primary Care Member Role: PCP Address: Address: [address] [place] [address]- Name: Brent MARSH Attending Position: [facility] ED Medicine Name: Rosaline Francisco RN Position: [facility] ED RN W/OE and Tasks Member Role: Patient Care Provider Name: Maylin Lucia Position: [facility] ED TA [facility] Member Role: Billboard Mechanic Name: Susan Ireland RN Position: [facility] ED RN W/OE and Tasks Member Role: Patient Care Provider Care Team Related Persons Name: PALMIRA MCGILL Address: home [address] [address] Name: SANDRITA BROOKS Address: home [address] [address] Name: JD BROOKS Name: MANOHAR LYNN
--- OUTSIDE RECORDS SUMMARY | 2023-12-11 06:38 | XMS_ITS | Continuity of Care Document ---
Author Name Unknown Organization [facility] Address [address] [place] [address]- Care Team Providers Care Steel Chipper Name Role Phone Claude Choi MD Primary Care Physician Encounter [facility] [place] Date(s): 10/21/20 - 11/20/20 [facility] [place] [address] [place] [address]- Attending Physician: Admtr, Viridiana Admitting Physician: AdmtrViridiana Referring Physician: Admtr, Ar8 Allergies, Adverse Reactions, Alerts Substance Reaction Severity Status ibuprofen Vesiculobullous rash Active hydrOXYzine Vesiculobullous rash Active Librium Vesiculobullous rash Active amLODIPine Edema Active Immunizations Given and Recorded Vaccine Date Status Refusal Reason influenza virus vaccine, inactivated 08/17/16 Give n influenza virus vaccine, inactivated 07/30/14 Give n influenza virus vaccine, inactivated 1 11/07/13 Gi jonathan tetanus/diphtheria/pertussis, acel(Tdap) 2 11/13/13 Given pneumococcal 23-valent vaccine 3 11/07/13 Given 1Result Comment: [11/07/2013] Ordered by Thaddeus Uriostegui MD [facility] 2Result Comment: [11/13/2013] Ordered by Thaddeus Uriostegui MD [facility] 3Result Comment: [11/07/2013] Ordered by Thaddeus Uriostegui MD [facility] Medications acetaminophen 325 mg oral tablet 650 mg, 2, tablet, By Mouth, 4 times a day, PRN, # 100 tablet, Refills 0, Tot. Refills 0, Maintenance, as needed for pain, 07/15/20 18:27:00 EDT, Route to Pharmacy Electronically, [facility]/pharmacy #[id number], cm, 12/26/19 10:09:00 EST, Height, 74.54, kg,... Start Date: 07/15/20 Status: Ordered Cane See Instructions, # 1 each, Refills 0, Tot. Refills 0, Maintenance, adjustable height cane. Dx: sciatica M54.31, 12/26/19 10:46:00 EST, Compound Start Date: 12/26/19 Status: Ordered lisinopril 10 mg oral tablet 10 mg, 1, tablet, By Mouth, Daily, discontinue the HCTZ-lisinopril combo, # 30 tablet, Refills 11, Tot. Refills 11, Maintenance, 07/29/20 15:02:00 EDT, Route to Pharmacy Electronically, [facility], home delivery, 168, cm, 07/29/20... Start Date: 07/29/20 Status: Ordered magnesium oxide 400 mg oral tablet 1 tablet = 400 mg, By Mouth, Daily, # 30 tablet, 5 Refills, Maintenance, 07/15/20 18:17:00 EDT, [facility], [place] delivery, 168, cm, 12/26/19 10:09:00 EST, Height, 74.54, kg, 12/26/19 10:09:00 EST, Dry Weight Start Date: 07/15/20 Status: Ordered nadolol 20 mg oral tablet 20 mg, 1, tablet, By Mouth, Daily, dose increase, # 30 tablet, Refills 5, Tot. Refills 5, Maintenance, 07/29/20 15:04:00 EDT, Route to Pharmacy Electronically, [facility], home delivery, 168, cm, 07/29/20 13:46:00 EDT, Height, 64.0... Start Date: 07/29/20 Stop Date: 01/25/21 Status: Ordered nadolol 20 mg oral tablet 10 mg, 0.5, tablet, By Mouth, Daily, for 30 days, # 15 tablet, Refills 5, Tot. Refills 5, Hard Stop12/20/20 11:12:00 EST, 06/23/20 11:12:00 EDT, Route to Pharmacy Electronically, [facility], home delivery, 168, cm, 12/26/19 10:09:... Start Date: 06/23/20 Stop Date: 12/20/20 Status: Ordered pantoprazole 40 mg oral delayed release tablet 1 tablet = 40 mg, By Mouth, Daily, PRN heartburn, only as needed for symptoms., # 15 tablet, 5 Refills, Maintenance, 07/15/20 18:17:00 EDT, [facility], home delivery please, 168, cm, 12/26/19 10:09:00EST, Height, 74.54, kg, 12/26/19 10:09:00 EST, Dry... Start Date: 07/15/20 Status: Ordered Problem List Condition Effective Dates Status Health Status Inform ant Anxiety(Confirmed) Active Atherosclerosis of aorta- pl aque on [place](Confirmed) 2016 Active Essential hypertension(Confirmed) Active Chronic sciatica of right side(Confirmed) Active Depressive disorder(Confirmed) Active GERD (gastroesophageal reflu x disease)(Confirmed) Active Cardiac murmur(Confirmed) Active Low back pain(Confirmed) Active Opioid use disorder, severe, in early remission, on maintenance therapy, dependence(Confirmed) Active Peptic ulcer without hemorrh age, without perforation AND without obstruction(Confirmed) Active Cannabis use disorder, moder ate, in early remission(Confirmed) Active Tobacco use disorder(Confirmed) Active Urinary incontinence(Confirmed) Active Social History Social History Type Response Smoking Status 10 or more cigarette s (1/2 pack or more)/day in last 30 days; Tobacco user in household: Yes entered on: 07/29/20 Sex
--- OUTSIDE RECORDS SUMMARY | 2023-12-11 06:38 | XMS_ITS | Continuity of Care Document ---
Author Name Unknown Organization [facility] ter Address [address] [place] [id number]- Care Team Providers Care Hydroelectric Mechanic Name Role Phone Claude Choi MD Primary Care Physician [phone] Encounter [facility] Date(s): 06/07/23 - 06/07/[address] [address]- Encounter Diagnosis Opiate overdose(Final) - 06/07/23 Acute kidney injury(Final) - 06/07/23 Discharge Disposition: A-D/C Home Attending Physician: Liv Amezcua MD Admitting Physician: Liv Amezcua MD Referring Physician: Not on Staff, Referring MD Allergies, Adverse Reactions, Alerts Substance Reaction Severity Status ibuprofen Vesiculobullous rash Active acetaminophen swelling Acute edema Rash Active hydrOXYzine Vesiculobullous rash Active Librium Vesiculobullous rash Active amLODIPine Edema Active Immunizations Given and Recorded Vaccine Date Status Refusal Reason [id number] 12y+ bivalent booster vax 09/02/22 Given influenza [...] Thaddeus Uriostegui MD [facility] 3Result Comment: [11/13/2013] Ordered by Thaddeus Uriostegui MD [facility] Medications Cane See Instructions, # 1 each, Refills 0, Tot. Refills 0, Maintenance, adjustable height cane. Dx: charlene M54.31, 12/26/19 10:46:00 EST, Compound Start Date: 12/26/19 Status: Ordered Cane See Instructions, # 1 each, Refills 0, Tot. Refills 0, Maintenance, repair of adjustable height cane. Need new tip. Dx: charlene M54.31, 12/30/20 19:51:00 EST, Compound Start Date: 12/30/20 Status: Ordered chlorthalidone 25 mg oral tablet 25 mg, 1, tablet, By Mouth, Daily, # 90 tablet, Refills 3, Tot. Refills 3, Maintenance, 11/23/22 23:08:00 EST, Route to Pharmacy Electronically, [facility]/pharmacy #[id number], 168, cm, 11/23/22 15:18:00 EST, Height, 65.45, kg, 11/23/22 15:18:00 EST, Dry Weight Start Date: 11/23/22 Status: Ordered grab-bar/hand rails for shower/tub grab-bar/hand rails for shower/tub, See Instructions, # 1 each, Refills 0, Tot. Refills 0, Maintenance, Dx: M54.3 Duration: permanent/over 1 year, 12/30/20 19:51:00 EST, Compound Start Date: 12/30/20 Status: Ordered lisinopril 40 mg oral tablet 1 tablet = 40 mg, By Mouth, Daily, dose increase, # 90 tablet, 3 Refills, Maintenance, 11/23/22 23:08:00 EST, Tablet, [facility]/pharmacy #[id number], Partial fill upon patient request if the prescription is for a schedule II opioid drug., 168, cm, 11/23/22 15:18:... Start Date: 11/23/22 Status: Ordered magnesium oxide 400 mg oral tablet 1 tablet = 400 mg, By Mouth, Daily, # 90 tablet, 3 Refills, Maintenance, 11/23/22 23:08:00 EST, [facility]/pharmacy #[id number], home delivery, 168, cm, 11/23/22 15:18:00 EST, Height, 65.45, kg, 11/23/22 15:18:00EST, Dry Weight Start Date: 11/23/22 Status: Ordered multivitamin Multiple Vitamins oral tablet 1 tablet, By Mouth, Daily, b complex, # 90 tablet, 3 Refills, Maintenance, 09/02/22 15:52:00 EDT, [facility], 1 tablet By Mouth Daily,Instr:b complex, 168, cm, 09/02/22 14:20:00 EDT, Height Start Date: 09/02/22 Status: Ordered pantoprazole 40 mg oral delayed release tablet 1 tablet = 40 mg, By Mouth, Daily, PRN heartburn, only as needed for symptoms., # 15 tablet, 5 Refills, Maintenance, 12/30/20 17:02:00 EST, EC Tablet, home delivery please, 168, cm, 12/30/20 14:40:00EST, Height, 64.09, kg, 07/29/20 13:46:00 EDT, Dry... Start Date: 12/30/20 Status: Ordered Shower Chair See Instructions, # 1 each, Maintenance, Dx: M54.3 Duration: permanent/over 1 year, 12/30/20 19:52:00 EST, Supply Start Date: 12/30/20 Status: Ordered sildenafil 100 mg oral tablet 1 tablet = 100 mg, By Mouth, Daily, PRN for erectile dysfunction, # 5 tablet, 11 Refills, Maintenance, 11/23/22 23:08:00 EST, Tablet, [facility]/pharmacy #[id number], 168, cm, 11/23/22 15:18:00 EST, Height, [...] remission, on maintenance therapy, dependence Confirmed Active [id number] Kindergarten Aide Ashly Coleman Confirmed Active Peptic ulcer without hemorrhage, without perforation AND without obstruction Confirmed Active Cannabis use disorder, moderate Confirmed Active Tobacco use disorder Confirmed Active Urinary incontinence Confirmed Active Vital Signs Most recent to oldest [Reference Range]: 1 2 3 Oxygen Saturation [94-100 %] 100 % (06/07/23 3:37 PM) 100 % (06/07/23 10:02 AM) 99 % (06/07/23 8:00 AM) Pulse Rate [55-90 bpm] 54 bpm *L* (06/07/23 3:37 PM) 97 bpm *H* (06/07/23 10:02 AM) 61 bpm (06/07/23 8:00 AM) Blood Pressure [90-138/55-84 mm Hg] 178/82mm Hg *H* (06/07/23 3:37 PM) 163/79mm Hg *H* (06/07/23 10:02 AM) 175/77mm Hg *H* (06/07/23 8:00 AM) Respiratory Rate [16-30 br/min] 16 br/min (06/07/23 3:37 PM) 16 br/min (06/07/23 10:02 AM) 18 br/min (06/07/23 8:00 AM) Temperature [96.8-100.4 DegF] 98.3 DegF (06/07/23 3:37 PM) 97.9 DegF (06/07/23 5:30 AM) Mode of Delivery (Oxygen) Room air (06/07/23 10:02 AM) Room air (06/07/23 8:00 AM) Room air (06/07/23 5:50 AM) Blood pressure sites Arm, left (06/07/23 3:37 PM) Temperature Route Oral (06/07/23 3:37 PM) Oral (06/07/23 5:30 AM) Social History Social History Type Response Tobacco Other: a pack a day. Sex EKG study * Event Display: EKG Authored Date: [id number] Note * Susan Sarabia MD: PERFORM Event Display: Patient Education Leaflets Authored Date: [id number] Opiate Overdose ?? [id number] Opiate Overdose You've been treated for an overdose of opiates, such as a prescription pain medicine or heroin.??Taking too many opiates is dangerous. They cause breathing to slow and possibly stop.??If you stop breathing for more than 2 to 3 minutes, your heart can stop and you will . Deaths from opiate overdose are a national epidemic. In 2019, the CDC estimated that more than 49,860 people in the [place] diedfrom an opioid overdose. This number reflects 70.6% of all drug overdose deaths. Signs and symptoms of overdose Symptoms can depend on how much of the drug and which ones were used. They include: ??? Trouble breathing or slow irregular breathing; breathing may even stop, which can cause ??? Drowsiness, trouble arousing, or coma ??? Small, pinpoint pupils ??? Cyanosis. This is when lips and nails appear blue because you don't have enough oxygen in the blood. ??? Slow heart rate ??? Lowbody temperature (hypothermia) ??? Muscle spasm ??? Seizures ??? If your overdose was severe, you may have been given an antidote, such as naloxone. The antidote effect lasts for about 1 to 2 hours.??If the opiate has not left your system by the time the antidote medicine wears off, your symptoms may return. These symptoms include drowsiness and slow breathing.?? If you were addicted and physically dependent on opiates, then naloxone may cause withdrawal symptoms to appear right away.??These may consist of: ??? Body aches ??? Diarrhea ??? Abdominal cramps ??? Upset stomach (nausea) ??? Vomiting ??? Runny nose ??? Sneezing ??? Sweating ??? Yawning ??? Restlessness ??? Irritability ??? Trembling These symptoms will go away as the naloxone wears off. ?? Home care The following guidelines will help you care for yourself at home: ??? Rest for the next 12 [address] or operate any vehicle or dangerous equipment until all opioid effects have worn off and you no longer feel sleepy or drowsy. ??? If you were previously prescribed opioid medicines for pain, don't take any more of this medicine for the next 6 to 8 hours, unless your healthcare provider says it's safe to do so. ??? If opioids or other drugs were swallowed, you may have been given liquid charcoal to neutralize those drugs.??The charcoal may cause nausea and vomiting over the next few hours. It will also cause a black color to your stools for the next 1 to 2 days. Usually, you will be given a laxative with the charcoal to speed the removal of any toxins from the digestive tract. This may cause diarrhea for up to 24 hours. If no laxative was given, you may become constipated. If this happens, you may take an [id number] laxative or suppository. ?? Follow-up care Follow up with your healthcare provider, or as advised if all symptoms don't go away within 24 hours, or if constipation is not eased after 2 doses of laxatives.??If your overdose was related to a drug addiction, seek drug counseling. Consider a drug treatment program to help break your habit. ?? Call 911 Call 911 if any of the following occur: ??? Seizure ??? Trouble breathing or slow irregular breathing ??? Chest pain ??? Sudden weakness on 1 side of your body or sudden trouble speaking ??? Very drowsy or having trouble waking up ??? Fainting or loss of consciousness ??? Rapid heart rate ??? Very slow heart rate ?? When to get medical advice Call your healthcare provider right away if any of the following occur: ??? Cough with colored sputum ??? Fever of 100.4??F (38??C) or higher, or as directed by your healthcare provider ??? Redness, swelling or tenderness at the heroin injection site (if using IV drugs) ??? Feeling that you might harm yourself or another Talk with your healthcare provider if you feel that you want to get drugs and would like to enter acounseling or rehabilitation program. ?? Last Reviewed Date: 2022 ?? [id number] [employer]. All rights reserved. This information is not intended as a substitute for professional medical care. Always follow your healthcare professional's instructions. ?? Patient Care team information Care Team Personnel Name: Claude Choi MD Position: [facility] Physician - Primary Care Member Role: PCP Address: Address: [address] [place] [address]- Name: Mallory Fernandez RN Position: [facility] ED RN W/OE and Tasks Member Role: Patient Care Provider Name: Liv Amezcua MD Position: [facility] ED Medicine MD Member Role: Admitting Physician Address: Address: [address] [place] [address]- Name: Susan Sarabia MD Position: [facility] Resident Member Role: ED Resident Address: Address: [address] [place] [address]- Care Team Related Persons Name: PALMIRA MCGILL Address: home [address] [address] Name: SANDRITA BROOKS Address: home [address] [address] Name: JD BROOKS Name: MANOHAR LYNN
--- OUTSIDE RECORDS SUMMARY | 2023-12-11 06:38 | XMS_ITS | Continuity of Care Document ---
Author Name Unknown Organization [facility] Address [address] [place] [address]- Care Team Providers Care Internal Revenue Agent Name Role Phone Claude Choi MD Primary Care Physician Encounter [facility] Date(s): 10/26/20 - 11/25/20 [facility] [address] [place] [address]- Allergies, Adverse Reactions, Alerts Substance Reaction Severity [...] 07/15/20 18:27:00 EDT, Route to Pharmacy Electronically, [facility]/pharmacy #[id number],168, cm, 12/26/19 10:09:00 EST, Height, 74.54, kg,... [...] 07/29/20 15:02:00 EDT, Route to Pharmacy Electronically, [facility], home delivery, 168, cm, 07/29/20... Start Date: 07/29/20 Status: Ordered magnesium oxide 400 mg oral tablet 1 tablet = 400 mg, By Mouth, Daily, # 30 tablet, 5 Refills, Maintenance, 07/15/20 18:17:00 EDT, [facility], home delivery, 168, cm, 12/26/19 10:09:00 EST, Height, 74.54, kg, 12/26/19 10:09:00 EST, Dry Weight Start Date: 07/15/20 Status: Ordered nadolol 20 mg oral tablet 20 mg, 1, tablet, By Mouth, Daily, dose increase, # 30 tablet, Refills 5, Tot. Refills 5, Maintenance, 07/29/20 15:04:00 EDT, Route to Pharmacy Electronically, [facility], home delivery, 168, cm, 07/29/20 13:46:00 EDT, Height, 64.0... Start Date: 07/29/20 Stop Date: 01/25/21 Status: Ordered nadolol 20 mg oral tablet 10 mg, 0.5, tablet, By Mouth, Daily, for 30 days, # 15 tablet, Refills 5, Tot. Refills 5, Hard Stop12/20/20 11:12:00 EST, 06/23/20 11:12:00 EDT, Route to Pharmacy Electronically, [facility], home delivery, 168, cm, 12/26/19 10:09:... [...]
--- OUTSIDE RECORDS SUMMARY | 2023-12-11 06:38 | XMS_ITS | Continuity of Care Document ---
Author Name Unknown Organization [facility] Address [address] [place] [address]- Care Team Providers Care Chiropractic Neurologist Name Role Phone Claude Choi MD Primary Care Physician [phone] Encounter [facility] R [id number] Date(s): 01/27/23 - 02/26/23 [facility] [address]- Attending Physician: Viridiana Connor Admitting Physician: AdmViridiana beckford Referring Physician: Admtr Ar8 Allergies, Adverse Reactions, Alerts Substance Reaction Severity Status ibuprofen Vesiculobullous rash Active acetaminophen swelling Acute edema Rash Active hydrOXYzine Vesiculobullous rash Active Librium Vesiculobullous rash Active amLODIPine Edema Active Immunizations Given and Recorded Vaccine Date Status Refusal Reason [id number] 12y+ bivalent booster vax 09/02/22 Given influenza [...] Comment: [11/13/2013] Ordered by Thaddeus Uriostegui MD [facility] STOCK Medications Cane See Instructions, # 1 [...] 11/23/22 23:08:00 EST, Route to Pharmacy Electronically, [facility]/pharmacy #[id number], 168, cm, 11/23/22 15:18:00 EST, Height, [...] 3 Refills, Maintenance, 11/23/22 23:08:00 EST, Tablet, [facility]/pharmacy #[id number], Partial fill upon patient request if the prescription is for a schedule II opioid drug., 168, cm, 11/23/22 15:18:... Start Date: 11/23/22 Status: Ordered magnesium oxide 400 mg oral tablet 1 tablet = 400 mg, By Mouth, Daily, # 90 tablet, 3 Refills, Maintenance, 11/23/22 23:08:00 EST, [facility]/pharmacy #[id number], home delivery, 168, cm, 11/23/22 15:18:00 EST, Height, 65.45, kg, 11/23/22 15:18:00EST, Dry Weight Start Date: 11/23/22 Status: Ordered multivitamin Multiple Vitamins oral tablet 1 tablet, By Mouth, Daily, b complex, # 90 tablet, 3 Refills, Maintenance, 09/02/22 15:52:00 EDT, [facility], 1 tablet By Mouth Daily,Instr:b complex, 168, [...] 11 Refills, Maintenance, 11/23/22 23:08:00 EST, Tablet, [facility]/pharmacy #[id number], 168, cm, 11/23/22 15:18:00 EST, Height, [...] remission, on maintenance therapy, dependence Confirmed Active *[id number]-Adr alina Wojcicki Confirmed Active Peptic ulcer without hemorrhage, without perforation AND without obstruction Confirmed Active Cannabis use disorder, moderate Confirmed Active Tobacco use disorder Confirmed Active Urinary incontinence Confirmed Active Social History Social History Type Response Tobacco Other: a pack a day. Sex Note * Event Display: Non BH Lab Results Authored Date: * Event Display: Ultrasound Abdomen, Non-BH Authored Date: * Event Display: EKG Non BH Authored Date: * Event Display: Non BH Lab Results Authored Date: * Event Display: Non BH Lab Results Authored Date: * Event Display: Ultrasound Abdomen, Non-BH Authored Date: Patient Care team information Care Team Personnel Name: Claude Choi MD Position: [facility] Primary Care Physician Member Role: PCP Address: Address: [address] [place] [address]- Care Team Related Persons Name: PALMIRA MCGILL Address: home [address] [place] [address] Name: SANDRITA BROOKS Address: home [address] [place] [address] Name: JD BROOKS Name: MANOHAR LYNN
--- OUTSIDE RECORDS SUMMARY | 2023-12-11 06:38 | XMS_ITS | Continuity of Care Document ---
Author Name Unknown Organization [facility] Address Unknown Care Team Providers Care Edger Feeder Name Role Phone Jimbo STUART, Claude Márquez Primary Care Physician Encounter [facility] Date(s): 06/24/21 - 09/11/21 [facility] Attending Physician: Claude Choi MD Admitting Physician: Claude Choi MD Referring Physician: Claude Choi MD Allergies, Adverse Reactions, Alerts Substance Reaction [...] a day, PRN, # 100 tablet, Refills 1, Tot. Refills 1, Maintenance, as needed for pain, 12/30/20 17:02:00 EST, Route to Pharmacy Electronically, [facility], [place] delivery, 168, cm, 12/30/20 14:40:... Start Date: 12/30/20 Status: Ordered Cane See Instructions, # 1 each, Refills 0, Tot. Refills 0, Maintenance, adjustable height cane. Dx: charlene M54.31, 12/26/19 10:46:00 EST, Compound Start Date: 12/26/19 Status: Ordered Cane See Instructions, # 1 each, Refills 0, Tot. Refills 0, Maintenance, repair of adjustable height cane. Need new tip. Dx: charlene M54.31, 12/30/20 19:51:00 EST, Compound Start Date: 12/30/20 Status: Ordered grab-bar/hand rails for shower/tub grab-bar/hand rails for shower/tub, See Instructions, # 1 each, Refills 0, Tot. Refills 0, Maintenance, Dx: M54.3 Duration: permanent/over 1 year, 12/30/20 19:51:00 EST, Compound Start Date: 12/30/20 Status: Ordered lisinopril 10 mg oral tablet 10 mg, 1, tablet, By Mouth, Daily, # 90 tablet, Refills 3, Tot. Refills 3, Maintenance, 12/30/20 17:02:00 EST, Route to Pharmacy Electronically, [facility], home delivery, 168, cm, 12/30/20 14:40:00 EST, Height, 64.09, kg, 07/29/20... Start Date: 12/30/20 Status: Ordered magnesium oxide 400 mg oral tablet 1 tablet = 400 mg, By Mouth, Daily, # 90 tablet, 3 Refills, Maintenance, 12/30/20 17:02:00 EST, [facility], home delivery, 168, cm, 12/30/20 14:40:00 EST, Height, 64.09, kg, 07/29/20 13:46:00 EDT, Dry Weight Start Date: 12/30/20 Status: Ordered multivitamin Multiple Vitamins oral tablet 1 tablet, By Mouth, Daily, b complex, # 90 tablet, 3 Refills, Maintenance, 12/30/20 17:07:00 EST, [facility], 1 tablet By Mouth Daily,Instr:b complex, 168, cm, 12/30/20 14:40:00 EST, Height, 64.09, kg, 07/29/20 13:46:00 EDT, Dry We... Start Date: 12/30/20 Status: Ordered nadolol 20 mg oral tablet 20 mg, 1, tablet, By Mouth, Daily, dose increase, # 90 tablet, Refills 3, Tot. Refills 3, Maintenance, 01/25/21 15:04:00 EDT, Route to Pharmacy Electronically, [facility], home delivery, 168, cm, 12/30/20 14:40:00 EST, Height, 64.0... Start Date: 01/25/21 Status: Ordered pantoprazole 40 mg oral delayed [...] EST, Supply Start Date: 12/30/20 Status: Ordered Problem List Condition Effective Dates [...]
--- OUTSIDE RECORDS SUMMARY | 2023-12-11 06:38 | XMS_ITS | Continuity of Care Document ---
Author Name Unknown Organization [facility] Address [address] [place] [address]- Care Team Providers Care Maintenance Department Manager Name Role Phone Jimbo STUART, Claude Márquez Primary Care Physician Encounter [facility] Date(s): 02/26/20 - 03/27/20 [facility] [place] [address] [place] [address]- [facility] Attending Physician: Viridiana Connor Admitting Physician: Viridiana Connor Referring Physician: AdmtrViridiana Allergies, Adverse Reactions, Alerts Substance Reaction Severity [...] Comment: [11/13/2013] Ordered by Thaddeus Uriostegui MD [facility] 3Result Comment: [11/07/2013] Ordered by Thaddeus Uriostegui MD [facility] Medications Cane See Instructions, # 1 each, Refills 0, Tot. Refills 0, Maintenance, adjustable height cane. Dx: sciatica M54.31, 12/26/19 10:46:00 EST, Compound Start Date: 12/26/19 Status: Ordered hydrochlorothiazide-lisinopril 12.5 mg-10 mg oral tablet 1 tablet, By Mouth, Daily, # 30 tablet, 5 Refills, Maintenance, 02/26/20 15:12:00 EDT, [facility], home delivery, 1 tablet By Mouth Daily, 168, cm, 12/26/19 10:09:00 EST, Height, 74.54, kg, 12/26/19 10:09:00 EST, Dry Weight Start Date: 02/26/20 Status: Ordered magnesium oxide 400 mg oral tablet 1 tablet = 400 mg, By Mouth, Daily, # 30 tablet, 5 Refills, Maintenance, 02/26/20 15:12:00 EDT, [facility], home delivery, 168, cm, 12/26/19 10:09:00 EST, Height, 74.54, kg, 12/26/19 10:09:00 EST, Dry Weight Start Date: 02/26/20 Status: Ordered nadolol 20 mg oral tablet 10 mg, 0.5, tablet, By Mouth, Daily, # 15 tablet, Refills 5, Tot. Refills 5, Maintenance, 06/23/20 11:12:00 EDT, Route to Pharmacy Electronically, [facility], home delivery, 168, cm, 12/26/19 10:09:00 EST, Height, 74.54, kg, 12/26/... Start Date: 06/23/20 Stop Date: 12/20/20 Status: Ordered nadolol 20 mg oral tablet 10 mg, 0.5, tablet, By Mouth, Daily, for 30 days, # 15 tablet, Refills 5, Tot. Refills 5, Hard Stop06/23/20 11:12:00 EDT, 12/26/19 11:12:00 EST, Route to Pharmacy Electronically, [facility]/pharmacy #[id number],168, cm, 12/26/19 10:09:00 EST, Height, 74.54, kg,... Start Date: 12/26/19 Stop Date: 06/23/20 Status: Ordered pantoprazole 40 mg oral delayed release tablet 1 tablet = 40 mg, By Mouth, Daily, PRN heartburn, only as needed for symptoms., # 15 tablet, 5 Refills, Maintenance, 02/26/20 15:12:00 EDT, EC Tablet, home delivery please, 168, cm, 12/26/19 10:09:00EST, Height, 74.54, kg, 12/26/19 10:09:00 EST, Dry... Start Date: 02/26/20 Status: Ordered Problem List Condition Effective Dates [...] History Social History Type Response Smoking Status 5-9 cigarettes (betw een 1/4 to 1/2 pack)/day in last 30 days entered on: 12/26/19 Sex
--- OUTSIDE RECORDS SUMMARY | 2023-12-11 06:38 | XMS_ITS | Continuity of Care Document ---
Author Name Unknown Organization [facility] Address Unknown Care Team Providers Care Faculty Dean Name Role Phone Jimbo STUART, Claude Márquez Primary Care Physician Encounter [facility] [place] Date(s): 08/12/21 - 09/11/21 [facility] Attending Physician: Viridiana Connor Admitting Physician: Viridiana Connor Referring Physician: Viridiana Connor Allergies, Adverse Reactions, Alerts Substance Reaction Severity [...] 12/30/20 17:02:00 EST, Route to Pharmacy Electronically, [facility], [place] delivery, 168, cm, 12/30/20 14:40:... Start Date: [...] 12/30/20 17:02:00 EST, Route to Pharmacy Electronically, [facility], home delivery, 168, cm, 12/30/20 14:40:00 EST, Height, 64.09, kg, 07/29/20... Start Date: 12/30/20 Status: Ordered magnesium oxide 400 mg oral tablet 1 tablet = 400 mg, By Mouth, Daily, # 90 tablet, 3 Refills, Maintenance, 12/30/20 17:02:00 EST, [facility], home delivery, 168, cm, 12/30/20 14:40:00 EST, Height, 64.09, kg, 07/29/20 13:46:00 EDT, Dry Weight Start Date: 12/30/20 Status: Ordered multivitamin Multiple Vitamins oral tablet 1 tablet, By Mouth, Daily, b complex, # 90 tablet, 3 Refills, Maintenance, 12/30/20 17:07:00 EST, [facility], 1 tablet By Mouth Daily,Instr:b complex, 168, cm, 12/30/20 14:40:00 EST, Height, 64.09, kg, 07/29/20 13:46:00 EDT, Dry We... Start Date: 12/30/20 Status: Ordered nadolol 20 mg oral tablet 20 mg, 1, tablet, By Mouth, Daily, dose increase, # 90 tablet, Refills 3, Tot. Refills 3, Maintenance, 01/25/21 15:04:00 EDT, Route to Pharmacy Electronically, [facility], home delivery, 168, cm, 12/30/20 14:40:00 EST, [...]
--- OUTSIDE RECORDS SUMMARY | 2023-12-11 06:38 | XMS_ITS | Continuity of Care Document ---
Author Name Unknown Organization [facility] Address [address] [place] [address]- Care Team Providers Care Publicity Person Name Role Phone Claude Choi MD Primary Care Physician [phone] Encounter [facility] Date(s): 02/26/20 - 03/04/20 [facility] [address] [address]- [facility] Attending Physician: Claude Choi MD Admitting Physician: Claude Choi MD Allergies, Adverse Reactions, [...] Comment: [11/13/2013] Ordered by Thaddeus Uriostegui MD [facility] STOCK 3Result Comment: [11/07/2013] Ordered by Thaddeus Uriostegui MD [facility] STOCK Medications Cane See Instructions, # 1 each, Refills 0, Tot. Refills 0, Maintenance, adjustable height cane. Dx: sciatica M54.31, 12/26/19 10:46:00 EST, Compound Start Date: 12/26/19 Status: Ordered hydrochlorothiazide-lisinopril 12.5 mg-10 mg oral tablet 1 tablet, By Mouth, Daily, # 30 tablet, 5 Refills, Maintenance, 02/26/20 15:12:00 EDT, [facility], home delivery, 1 tablet By Mouth Daily, 168, cm, 12/26/19 10:09:00 EST, Height, 74.54, kg, 12/26/19 10:09:00 EST, Dry Weight Start Date: 02/26/20 Status: Ordered magnesium oxide 400 mg oral tablet 1 tablet = 400 mg, By Mouth, Daily, # 30 tablet, 5 Refills, Maintenance, 02/26/20 15:12:00 EDT, [facility], home delivery, 168, cm, 12/26/19 10:09:00 EST, Height, 74.54, kg, 12/26/19 10:09:00 EST, Dry Weight Start Date: 02/26/20 Status: Ordered nadolol 20 mg oral tablet 10 mg, 0.5, tablet, By Mouth, Daily, # 15 tablet, Refills 5, Tot. Refills 5, Maintenance, 06/23/20 11:12:00 EDT, Route to Pharmacy Electronically, [facility], home delivery, 168, cm, 12/26/19 10:09:00 EST, Height, 74.54, kg, 12/26/... Start Date: 06/23/20 Stop Date: 12/20/20 Status: Ordered nadolol 20 mg oral tablet 10 mg, 0.5, tablet, By Mouth, Daily, for 30 days, # 15 tablet, Refills 5, Tot. Refills 5, Hard Stop06/23/20 11:12:00 EDT, 12/26/19 11:12:00 EST, Route to Pharmacy Electronically, [facility]/pharmacy #[id number],168, cm, 12/26/19 10:09:00 EST, Height, 74.54, [...]
--- OUTSIDE RECORDS SUMMARY | 2023-12-11 06:38 | XMS_ITS | Continuity of Care Document ---
Author Name Unknown Organization [facility] Address [address] [place] [address]- Care Team Providers Care Pattern Storage Clerk Name Role Phone Claude Choi MD Primary Care Physician Encounter [facility] Date(s): 07/29/20 - 11/20/20 [facility] [address] [place], [place] [address] Attending Physician: Claude Choi MD Admitting Physician: [...] 07/15/20 18:27:00 EDT, Route to Pharmacy Electronically, [facility]/pharmacy #[id number],168, cm, 12/26/19 10:09:00 EST, Height, 74.54, kg,... [...] 07/29/20 15:02:00 EDT, Route to Pharmacy Electronically, [facility], home delivery, 168, cm, 07/29/20... Start Date: 07/29/20 Status: Ordered magnesium oxide 400 mg oral tablet 1 tablet = 400 mg, By Mouth, Daily, # 30 tablet, 5 Refills, Maintenance, 07/15/20 18:17:00 EDT, [facility], home delivery, 168, cm, 12/26/19 10:09:00 EST, Height, 74.54, kg, 12/26/19 10:09:00 EST, Dry Weight Start Date: 07/15/20 Status: Ordered nadolol 20 mg oral tablet 20 mg, 1, tablet, By Mouth, Daily, dose increase, # 30 tablet, Refills 5, Tot. Refills 5, Maintenance, 07/29/20 15:04:00 EDT, Route to Pharmacy Electronically, [facility], home delivery, 168, cm, 07/29/20 13:46:00 EDT, Height, 64.0... Start Date: 07/29/20 Stop Date: 01/25/21 Status: Ordered nadolol 20 mg oral tablet 10 mg, 0.5, tablet, By Mouth, Daily, for 30 days, # 15 tablet, Refills 5, Tot. Refills 5, Hard Stop12/20/20 11:12:00 EST, 06/23/20 11:12:00 EDT, Route to Pharmacy Electronically, [facility], home delivery, 168, cm, 12/26/19 10:09:... [...]
--- OUTSIDE RECORDS SUMMARY | 2023-12-11 06:38 | XMS_ITS | Continuity of Care Document ---
Author Name Unknown Organization [facility] Address [address] [place] [address]- Care Team Providers Care Tape Calender Name Role Phone Claude Choi MD Primary Care Physician [facility] Date(s): 01/13/21 - 02/28/[address] [address] Attending Physician: Claude Choi MD Admitting [...] 12/30/20 17:02:00 EST, Route to Pharmacy Electronically, [facility] delivery, 168, cm, 12/30/20 14:40:... Start Date: 12/30/20 Status: Ordered Cane See Instructions, # 1 each, Refills 0, Tot. Refills 0, Maintenance, adjustable height cane. Dx: charlene M54.31, 12/26/19 10:46:00 EST, Compound Start Date: 12/26/19 Status: Ordered Cane See Instructions, # 1 each, Refills 0, Tot. Refills 0, Maintenance, repair of adjustable height cane. Need new tip. Dx: marlenijustina M54.31, 12/30/20 19:51:00 EST, Compound Start Date: [...] 12/30/20 17:02:00 EST, Route to Pharmacy Electronically, [facility], home delivery, 168, cm, 12/30/20 14:40:00 EST, Height, 64.09, kg, 07/29/20... Start Date: 12/30/20 Status: Ordered magnesium oxide 400 mg oral tablet 1 tablet = 400 mg, By Mouth, Daily, # 90 tablet, 3 Refills, Maintenance, 12/30/20 17:02:00 EST, [facility], home delivery, 168, cm, 12/30/20 14:40:00 EST, Height, 64.09, kg, 07/29/20 13:46:00 EDT, Dry Weight Start Date: 12/30/20 Status: Ordered multivitamin Multiple Vitamins oral tablet 1 tablet, By Mouth, Daily, b complex, # 90 tablet, 3 Refills, Maintenance, 12/30/20 17:07:00 EST, [facility], 1 tablet By Mouth Daily,Instr:b complex, 168, cm, 12/30/20 14:40:00 EST, Height, 64.09, kg, 07/29/20 13:46:00 EDT, Dry We... Start Date: 12/30/20 Status: Ordered nadolol 20 mg oral tablet 20 mg, 1, tablet, By Mouth, Daily, dose increase, # 90 tablet, Refills 3, Tot. Refills 3, Maintenance, 01/25/21 15:04:00 EDT, Route to Pharmacy Electronically, [facility], home delivery, 168, cm, 12/30/20 14:40:00 EST, [...]
--- OUTSIDE RECORDS SUMMARY | 2023-12-11 06:38 | XMS_ITS | Continuity of Care Document ---
Author Name Unknown Organization [facility] ter Address [address] [place] [address]- Care Team Providers Care Medical Physiologist Name Role Phone Claude Choi MD Primary Care Physician [facility]counter [facility] Date(s): 09/20/23 - 09/21/[address] [address]- Discharge Disposition: A-D/C Home Attending Physician: Asim Ireland MD Admitting Physician: Asim Ireland MD Referring Physician: Not on Staff, Referring MD Allergies, Adverse Reactions, Alerts Substance Reaction Severity Status ibuprofen Vesiculobullous rash Active hydrOXYzine Vesiculobullous rash Active Librium Vesiculobullous rash Active acetaminophen swelling Acute edema Rash Active amLODIPine Edema Active Immunizations Given and Recorded Vaccine Date Status Refusal Reason [id number] 12y+ bivalent booster vax 09/02/22 Given influenza [...] by Thaddeus Uriostegui MD [facility] Medications chlorthalidone 25 mg oral tablet 25 mg, 1, tablet, By Mouth, Daily, # 30 tablet, Refills 3, Tot. Refills 3, Maintenance, 08/16/23 12:10:00 EDT, Route to Pharmacy Electronically, [facility]/pharmacy #[id number], 168, cm, 08/16/23 5:07:00 EDT, Height, 59, kg, 08/16/23 5:07:00 EDT, Dry Weight Start Date: 08/16/23 Stop Date: 12/14/23 Status: Ordered cyclobenzaprine 5 mg oral tablet 1 tablet = 5 mg, By Mouth, 3 times a day, for 3 days, # 9 tablet, 0 Refills, Acute 09/24/23 3:50:00EST, 09/21/23 3:50:00 EST, Tablet, [facility] #[id number], Partial fill upon patient request if the prescription is for a schedule II opioid drug.... Start Date: 09/21/23 Stop Date: 09/24/23 Status: Ordered lisinopril 40 mg oral tablet 1 tablet = 40 mg, By Mouth, Daily, dose increase, # 30 tablet, 3 Refills, Maintenance, 08/16/23 12:10:00 EDT, Tablet, [facility]/pharmacy #[id number], Partial fill upon patient request if the prescription is for a schedule II opioid drug., 168, cm, 08/16/23 5:07:0... Start Date: 08/16/23 Stop Date: 12/14/23 Status: Ordered magnesium oxide 400 mg oral tablet 1 tablet = 400 mg, By Mouth, Daily, # 90 tablet, 3 Refills, Maintenance, 11/23/22 23:08:00 EST, [facility]/pharmacy #[id number], home delivery, 168, cm, 11/23/22 15:18:00 EST, Height, 65.45, kg, 11/23/22 15:18:00EST, Dry Weight Start Date: 11/23/22 Status: Ordered OxyCODONE IR Tablet 5 mg, Tablet, By Mouth, Once, STAT, 09/20/23 23:43:00 EST, Stop date 09/20/23 23:43:00 EST Start Date: 09/20/23 Stop Date: 09/21/23 Status: Completed pantoprazole 40 mg oral delayed release tablet [...] remission, on maintenance therapy, dependence Confirmed Active [id number] Supervisor Payroll Ashly Coleman Confirmed Active Peptic ulcer without hemorrhage, without perforation AND without obstruction Confirmed Active Cannabis use disorder, moderate Confirmed Active Tobacco use disorder Confirmed Active Urinary incontinence Confirmed Active Results Radiology Reports * Exam Date Time Procedure Performing Provider Status 09/21/23 12:23 AM Tibia/Fibula 2 Views Left Carole Salguero; Auth (Verified) Notes: (Tibia/Fibula 2 Views Left) Reason For Exam: with Pain;Trauma RESULT: Tibia/Fibula 2 Views Left Tibia/Fibula 2 Views Left Hx of Present Illness: leg cramps x1 week. C o calf pain and tenderness. Abdominal pain.; Reason: Trauma; with Pain; Clinical Question(s): Fracture COMPARISON: None. FINDINGS: No fractures or bone lesions. Visualized joints are normal. Normal soft tissues. IMPRESSION: No acute process. I have personally reviewed the images and I agree with this report. WSN: [id number] Ordering Physician: Monika Ríos Dictated By: Ama Durbin MD Dictated Date/Time: 09/21/23 7:54 am Reviewed By: Martín Lea MD Signed By: Martín Lea MD Signed Date/Time: 09/21/23 7:59 am Transcribed By: LORENA Transcribed Date/Time: 09/21/23 7:51 am * Exam Date Time Procedure Performing Provider Status 09/21/23 12:35 AM US Doppler Ext Lower Venous Left Hue Miranda; Auth (Verified) Notes: (US Doppler Ext Lower Venous Left) Reason For Exam: Pain in limb;Other: RESULT: US Doppler Ext Lower Venous Left US Doppler Ext Lower Venous Left HX OF PRESENT ILLNESS: leg cramps x1 week. c o calf pain and tenderness. abdominal pain.; Reason: Pain in limb; Clinical Question(s): Thrombus COMPARISON: None IMAGING TECHNIQUE: Ultrasound of the veins from the groin through the calf was performed using grayscale, color, and spectral Doppler ultrasound assessing for complete compressibility and normal flowcharacteristics. FINDINGS: Common femoral vein: Patent. No thrombosis. Femoral vein: Patent. No thrombosis. Popliteal vein: Patent. No thrombosis. Gastrocnemius veins: The visualized portions are patent without evidence of thrombosis. Peroneal veins: The visualized portions are patent without evidence of thrombosis. Posterior tibial veins: The visualized portions are patent without evidence of thrombosis. Contralateral common femoral vein: Patent. No thrombosis. IMPRESSION: No evidence of deep venous thrombosis. I have personally reviewed the images and I agree with this report. WSN: [id number] Ordering Physician: Monika Ríos Dictated By: Marisol Blair MD Dictated Date/Time: 09/21/23 7:17 am Reviewed By: Sean Neal MD Signed By: Sean Neal MD Signed Date/Time: 09/21/23 7:22 am Transcribed By: LORENA Transcribed Date/Time: 09/21/23 0:42 am Vital Signs Most recent to oldest [Reference Range]: 1 2 3 Height 168 cm (09/21/23 2:15 AM) 168 cm (09/21/23:24 AM) 168 cm (09/20/23 11:30 PM) Oxygen Saturation [94-100 %] 99 % (09/21/23 2:15 AM) 98 % (09/21/23:24 AM) 94 % (09/20/23 11:30 PM) Pulse Rate [55-90 bpm] 81 bpm (09/21/23 2:15 AM) 57 bpm (09/21/23: AM) 74 bpm (09/20/23 11:30 PM) Blood Pressure [90-138/55-84 mm Hg] 165/88mm Hg *H* (09/21/23 2:15 AM) 176/106mm Hg *H* (09/21/23: AM) 149/71mm Hg *H* (09/20/23 11:30 PM) Respiratory Rate [16-30 br/min] 18 br/min (09/21/23: AM) 18 br/min (09/21/23 2: AM) 19 br/min (09/21/23: AM) Temperature [96.8-100.4 DegF] 97.6 DegF (09/21/23: AM) 97.6 DegF (09/21/23: AM) 98.7 DegF (09/20/23 11:30 PM) Mode of Delivery (Oxygen) Room air (09/21/23 2:15 AM) Room air (09/21/23:24 AM) Room air (09/20/23 11:30 PM) Blood pressure sites Arm, left (09/21/23 2:15 AM) Arm, left (09/20/23 11:30 PM) Arm, right (09/20/23 10:29 PM) Temperature Route Oral (09/21/23 2:15 AM) Oral (09/21/23:24 AM) Oral (09/20/23 11:30 PM) Dry Weight 64 kg (09/21/23 2:15 AM) 64 kg (09/21/23 1:24 AM) 64 kg (09/20/23 11:30 PM) Dry Weight Obtained Via Patient/family s tated (09/20/23 6:09 PM) Social History Social History Type Response Tobacco Other: a pack a day. Sex Note * Monika Kelly: PERFORM Event Display: Patient Education Leaflets Authored Date: [facility] [place] [address] [facility] [place] Department [facility] Directory ?? EMERGENCY Shelters Important: Alcohol and drugs are absolutely forbidden in all shelters. ?? [facility] ([facility]) [address] [place] [address] Adult men and women only- no children 3 meals day served-health care and dental clinic Referral: Walk-ins are accepted/ phone calls are preferred ?? [facility] [address] [place], [place] [phone] Men only- [facility] emergency fpc- reopening 12/2012 Referrals: Must line up by 3pm. government relations manager for intake. ?? [facility] [address] [place] [address] Adult men and women 2 meals per day/health care nurse Referral: Must contact intake by phone before coming ?? [facility] [address] [place] [address] Adult men and women open Aug 31-February 28 3 meals day-must leave fpc by 7am Referral: First come, first serve line up begins at 5:30pm ?? [facility] [address] [place] [address] Adult men and women (one room for families with children) Referral: First come, first serve lineup begins at 3:30pm ?? [facility] [address] [place], [place]?? [address] Men only Referral:?? $300.00/month fee (1st??month ayush period available) ?? [facility] [address] [place], [place]?? [address] Men only ?? [facility] [address] [facility] ?? [place] [address] Women and children ?? [facility] [address] [place] [address]?? Women and children ?? [facility] (relocation and support) [place], [place] (Hotline) Emergency Abuse and Rape crises support, fpc ?? [facility] Rape/Domestic Violence Hotline [facility] referral ? [facility]) [address] [place] [address] [place], [place]?? [address] Lunch and Dinner provided (Mon ???Sat: Noon and 5pm; Sun: 1 and 5pm) ?? Additional [facility] Options ?? [facility] [address] [facility] [phone] Male + [place] [address] ? [facility] [address] [phone] Male + Female Beds [facility] [address] [address] [facility] [address] [facility] [address] [phone] ?? [facility] [address] [address] [facility] 60 [facility] [phone] ?? [facility] [address] ?[place] [facility] [address] [facility] [phone] ?? [facility] [address] ? [facility] [address] [facility] [phone] By Application Only/Must Call [facility] [address] ? [facility] 143?? [facility] [phone] ? [facility] [address] [address] [facility] [address] [phone] ?? [facility] [address] ? [facility] 43 [facility] [phone] ?? [facility] [address] ?[facility] ?? [phone] ?[facility]? [place], [place]?? [phone]? Emergency short stay, women, men, families ? Stephanie [place], [place]?? [phone] Families, adults, men, LGBTQ ? [address] [facility]?[place]?[phone]?[facility] ??[place] [address]?[phone]?[facility] [place] [phone] ?[facility] [place], [place] ??[phone] [facility] [place] [phone] ? [facility] [place], [place] [phone] ? [address] [facility] [place], [place] [phone] ? [facility] [place], [place] [phone] ?[facility] ??[place], [place] ??[phone] ? Patient Care team information Care Team Personnel Name: Claude Choi MD Position: [facility] Physician - Primary Care Member Role: PCP Address: Address: [address] [place] [address]- Name: Sallie Mcgrath Position: [facility] ED TA [facility] Member Role: Patient Care Provider Name: Gregory Paniagua RN Position: [facility] ED RN W/OE and Tasks Member Role: Patient Care Provider Name: Asim Ireland MD Position: [facility] ED Medicine MD Member Role: ED Attending Physician Address: Address: [address] [place] [address]- Name: Monika Kelly Position: [facility] Associate Professional Member Role: ED Physician Garment Manufacturer Address: Address: [address] [place] [address] [address]- Care Team Related Persons Name: PALMIRA MGCILL Address: home [address] [address] Name: SANDRITA BROOKS Address: [address] [address] Name: JD BROOKS Name: MANOHAR LYNN Name: HOLLY TORRES Address: home [address] [place] [address]
--- OUTSIDE RECORDS SUMMARY | 2023-12-11 06:38 | XMS_ITS | Continuity of Care Document ---
Author Name Unknown Organization [facility] Address [address] [place] [address]- Care Team Providers Care Motor Racer Name Role Phone Claude Choi MD Primary Care Physician [phone] [facility] Date[facility]s): 10/18/22 - 11/17/22 [facility] [address]- [place] Allergies, Adverse Reactions, Alerts Substance Reaction Severity Status ibuprofen Vesiculobullous rash Active acetaminophen swelling Acute edema Rash Active hydrOXYzine Vesiculobullous rash Active Librium Vesiculobullous rash Active amLODIPine Edema Active Immunizations Given and Recorded Vaccine Date Status Refusal Reason [id number] 12y+ bivalent booster vax 09/02/22 Given influenza [...] tablet, Refills 3, Tot. Refills 3, Maintenance, 12/17/21 15:50:00 EST, Route to Pharmacy Electronically, [facility], 168, cm, 12/17/21 14:54:00 EST, Height, 64.09, kg, 07/29/20 13:46:00 EDT,... Start Date: 12/17/21 Status: Ordered grab-bar/hand rails for shower/tub grab-bar/hand rails for shower/tub, See Instructions, # 1 each, Refills 0, Tot. Refills 0, Maintenance, Dx: M54.3 Duration: permanent/over 1 year, 12/30/20 19:51:00 EST, Compound Start Date: 12/30/20 Status: Ordered lisinopril 40 mg oral tablet 1 tablet = 40 mg, By Mouth, Daily, dose increase, # 90 tablet, 3 Refills, Maintenance, 09/02/22 15:53:00 EDT, Tablet, [facility], Partial fill upon patient request if the prescription is for a schedule II opioid drug., 168, cm, ... Start Date: 09/02/22 Status: Ordered magnesium oxide 400 mg oral tablet 1 tablet = 400 mg, By Mouth, Daily, # 90 tablet, 3 Refills, Maintenance, 09/02/22 15:53:00 EDT, [facility], home delivery, 168, cm, 09/02/22 14:20:00 EDT, Height Start Date: 09/02/22 Status: Ordered multivitamin Multiple Vitamins oral tablet 1 tablet, By Mouth, Daily, b complex, # 90 tablet, 3 Refills, Maintenance, 09/02/22 15:52:00 EDT, [facility], 1 tablet By Mouth Daily,Instr:b complex, [...] dysfunction, # 5 tablet, 11 Refills, Maintenance, 07/29/22 12:40:00 EDT, Tablet, [facility], 168, cm, 12/17/21 14:54:00 EST, Height, 64.09, kg, 07/29/20 13:46:00 EDT, Dry Weight Start Date: 07/29/22 Status: Ordered Problem List Condition Confirmation Course [...] remission, on maintenance therapy, dependence Confirmed Active Peptic ulcer without hemorrhage, without perforation AND without obstruction Confirmed Active Cannabis use disorder, moderate Confirmed Active Tobacco use disorder Confirmed Active Urinary incontinence Confirmed Active Social History Social History Type Response Tobacco Other: a pack a day. Sex Patient Care team information Care Team Personnel Name: Claude Choi MD Position: [facility] Primary Care Physician Member Role: PCP Address: Address: [address] [place] [address]- Care Team Related Persons Name: PALMIRA MCGILL Address: home [address] [facility] [address] [place] [address] Name: SANDRITA BROOKS Address: home [address] [facility] [address] [place] [address] Name: JD BROOKS Name: MANOHAR LYNN
--- OUTSIDE RECORDS SUMMARY | 2023-12-11 06:38 | XMS_ITS | Continuity of Care Document ---
Author Name Unknown Organization [facility] Address [address] [place] [address]- Care Team Providers Care Geoscience Laboratory Technician Name Role Phone Claude Choi MD Primary Care Physician [phone] [facility] 10[facility]18[facility]22 - 11/17/22 [facility] [address]- [place] Allergies, Adverse Reactions, Alerts Substance Reaction Severity Status ibuprofen Vesiculobullous rash Active acetaminophen swelling Acute edema Rash Active hydrOXYzine Vesiculobullous rash Active Librium Vesiculobullous rash Active amLODIPine Edema Active Immunizations Given and Recorded Vaccine Date Status Refusal Reason [id number] 12y+ bivalent booster vax 09/02/22 Given influenza [...] 12/17/21 15:50:00 EST, Route to Pharmacy Electronically, [facility], 168, cm, 12/17/21 14:54:00 EST, Height, [...] 3 Refills, Maintenance, 09/02/22 15:53:00 EDT, Tablet, [facility], Partial fill upon patient request if the prescription is for a schedule II opioid drug., 168, cm, ... Start Date: 09/02/22 Status: Ordered magnesium oxide 400 mg oral tablet 1 tablet = 400 mg, By Mouth, Daily, # 90 tablet, 3 Refills, Maintenance, 09/02/22 15:53:00 EDT, [facility], home delivery, 168, cm, 09/02/22 14:20:00 EDT, Height Start Date: 09/02/22 Status: Ordered multivitamin Multiple Vitamins oral tablet 1 tablet, By Mouth, Daily, b complex, # 90 tablet, 3 Refills, Maintenance, 09/02/22 15:52:00 EDT, [facility], 1 tablet By Mouth Daily,Instr:b complex, 168, [...] 11 Refills, Maintenance, 07/29/22 12:40:00 EDT, Tablet, [facility], 168, cm, 12/17/21 14:54:00 EST, Height, [...] Team Personnel Name: Claude Choi MD Position: [facility] Primary Care Physician Member Role: PCP Address: Address: [address] [place] [address]- Care Team Related Persons Name: PALMIRA MCGILL Address: home [address] [facility] [address] [place] [address] Name: SANDRITA BROOKS Address: home [address] [facility] [address] [place] [address] Name: JD BROOKS Name: MANOHAR LYNN
--- OUTSIDE RECORDS SUMMARY | 2023-12-11 06:38 | XMS_ITS | Continuity of Care Document ---
Author Name Unknown Organization [facility] Address [address] [place] [address]- Care Team Providers Care Senior Software Tester Name Role Phone Claude Choi MD Primary Care Physician Encounter [facility] Date(s): 01/08/21 - 02/07/21 [facility]/[address] [address]- Allergies, Adverse Reactions, Alerts Substance Reaction Severity [...] 12/30/20 17:02:00 EST, Route to Pharmacy Electronically, [facility], [place] delivery, 168, cm, 12/30/20 14:40:... Start Date: [...] 12/30/20 17:02:00 EST, Route to Pharmacy Electronically, [facility], home delivery, 168, cm, 12/30/20 14:40:00 EST, Height, 64.09, kg, 07/29/20... Start Date: 12/30/20 Status: Ordered magnesium oxide 400 mg oral tablet 1 tablet = 400 mg, By Mouth, Daily, # 90 tablet, 3 Refills, Maintenance, 12/30/20 17:02:00 EST, [facility], home delivery, 168, cm, 12/30/20 14:40:00 EST, Height, 64.09, kg, 07/29/20 13:46:00 EDT, Dry Weight Start Date: 12/30/20 Status: Ordered multivitamin Multiple Vitamins oral tablet 1 tablet, By Mouth, Daily, b complex, # 90 tablet, 3 Refills, Maintenance, 12/30/20 17:07:00 EST, [facility], 1 tablet By Mouth Daily,Instr:b complex, 168, cm, 12/30/20 14:40:00 EST, Height, 64.09, kg, 07/29/20 13:46:00 EDT, Dry We... Start Date: 12/30/20 Status: Ordered nadolol 20 mg oral tablet 20 mg, 1, tablet, By Mouth, Daily, dose increase, # 90 tablet, Refills 3, Tot. Refills 3, Maintenance, 01/25/21 15:04:00 EDT, Route to Pharmacy Electronically, [facility], home delivery, 168, cm, 12/30/20 14:40:00 [...]
--- OUTSIDE RECORDS SUMMARY | 2023-12-11 06:38 | XMS_ITS | Continuity of Care Document ---
Author Name Unknown Organization [facility] Address [address] [place] [address]- Care Team Providers Care Grain Shipper Name Role Phone Claude Choi MD Primary Care Physician Encounter [facility] [place] Date(s): 02/24/21 - 03/26/21 [facility]/[address] [address]- Allergies, Adverse Reactions, Alerts Substance Reaction Severity [...] 12/30/20 17:02:00 EST, Route to Pharmacy Electronically, [facility], [place] delivery, 168, cm, 12/30/20 14:40:... Start Date: [...] 12/30/20 17:02:00 EST, Route to Pharmacy Electronically, [facility], home delivery, 168, cm, 12/30/20 14:40:00 EST, Height, 64.09, kg, 07/29/20... Start Date: 12/30/20 Status: Ordered magnesium oxide 400 mg oral tablet 1 tablet = 400 mg, By Mouth, Daily, # 90 tablet, 3 Refills, Maintenance, 12/30/20 17:02:00 EST, [facility], home delivery, 168, cm, 12/30/20 14:40:00 EST, Height, 64.09, kg, 07/29/20 13:46:00 EDT, Dry Weight Start Date: 12/30/20 Status: Ordered multivitamin Multiple Vitamins oral tablet 1 tablet, By Mouth, Daily, b complex, # 90 tablet, 3 Refills, Maintenance, 12/30/20 17:07:00 EST, [facility], 1 tablet By Mouth Daily,Instr:b complex, 168, cm, 12/30/20 14:40:00 EST, Height, 64.09, kg, 07/29/20 13:46:00 EDT, Dry We... Start Date: 12/30/20 Status: Ordered nadolol 20 mg oral tablet 20 mg, 1, tablet, By Mouth, Daily, dose increase, # 90 tablet, Refills 3, Tot. Refills 3, Maintenance, 01/25/21 15:04:00 EDT, Route to Pharmacy Electronically, [facility], home delivery, 168, cm, 12/30/20 14:40:00 EST, [...]
--- OUTSIDE RECORDS SUMMARY | 2023-12-11 06:38 | XMS_ITS | Continuity of Care Document ---
Author Name Unknown Organization [facility] Address [address] [place] [address]- Care Team Providers Care Head Inspector And Center Marker Name Role Phone Claude Choi MD Primary Care Physician [facility]counter [facility] Date(s): 12/26/22 - 01/25/23 [facility] [place] [address]- [place] Allergies, Adverse Reactions, Alerts Substance Reaction Severity Status ibuprofen Vesiculobullous rash Active acetaminophen swelling Acute edema Rash Active hydrOXYzine Vesiculobullous rash Active Librium Vesiculobullous rash Active amLODIPine Edema Active Immunizations Given and Recorded Vaccine Date Status Refusal Reason [id number] 12y+ bivalent booster vax 09/02/22 Given influenza [...] 11/23/22 23:08:00 EST, Route to Pharmacy Electronically, [facility]/pharmacy #[id number], 168, cm, 11/23/22 15:18:00 EST, [...] 3 Refills, Maintenance, 11/23/22 23:08:00 EST, Tablet, [facility]/pharmacy #[id number], Partial fill upon patient request if the prescription is for a schedule II opioid drug., 168, cm, 11/23/22 15:18:... Start Date: 11/23/22 Status: Ordered magnesium oxide 400 mg oral tablet 1 tablet = 400 mg, By Mouth, Daily, # 90 tablet, 3 Refills, Maintenance, 11/23/22 23:08:00 EST, [facility]/pharmacy #[id number], home delivery, 168, cm, 11/23/22 15:18:00 EST, Height, 65.45, kg, 11/23/22 15:18:00EST, Dry Weight Start Date: 11/23/22 Status: Ordered multivitamin Multiple Vitamins oral tablet 1 tablet, By Mouth, Daily, b complex, # 90 tablet, 3 Refills, Maintenance, 09/02/22 15:52:00 EDT, [facility], 1 tablet By Mouth Daily,Instr:b complex, [...] 11 Refills, Maintenance, 11/23/22 23:08:00 EST, Tablet, [facility]/pharmacy #[id number], 168, cm, 11/23/22 15:18:00 EST, [...] Team Personnel Name: Claude Choi MD Position: [facility] Primary Care Physician Member Role: PCP Address: Address: [address] [place] [address]- Care Team Related Persons Name: PALMIRA MCGILL Address: home [address] [facility] [address] [place] [address] Name: SANDRITA BROOKS Address: home [address] [facility] [address] [place] [address] Name: JD BROOKS Name: MANOHAR LYNN
--- OUTSIDE RECORDS SUMMARY | 2023-12-11 06:38 | XMS_ITS | Continuity of Care Document ---
Author Name Unknown Organization [facility] Address [address] [place] [address]- Care Team Providers Care Clinical Product Manager Name Role Phone Claude Choi MD Primary Care Physician Encounter [facility] Date(s): 03/03/21 - 04/02/21 [facility] [address] [place] [address]- Attending Physician: Viridiana Connor Admitting Physician: AdmtrViridiana Referring Physician: Admtr, Ar8 [...] 12/30/20 17:02:00 EST, Route to Pharmacy Electronically, [facility], [place] delivery, 168, cm, 12/30/20 14:40:... Start Date: [...] 12/30/20 17:02:00 EST, Route to Pharmacy Electronically, [facility], home delivery, 168, cm, 12/30/20 14:40:00 EST, Height, 64.09, kg, 07/29/20... Start Date: 12/30/20 Status: Ordered magnesium oxide 400 mg oral tablet 1 tablet = 400 mg, By Mouth, Daily, # 90 tablet, 3 Refills, Maintenance, 12/30/20 17:02:00 EST, [facility], home delivery, 168, cm, 12/30/20 14:40:00 EST, Height, 64.09, kg, 07/29/20 13:46:00 EDT, Dry Weight Start Date: 12/30/20 Status: Ordered multivitamin Multiple Vitamins oral tablet 1 tablet, By Mouth, Daily, b complex, # 90 tablet, 3 Refills, Maintenance, 12/30/20 17:07:00 EST, [facility], 1 tablet By Mouth Daily,Instr:b complex, 168, cm, 12/30/20 14:40:00 EST, Height, 64.09, kg, 07/29/20 13:46:00 EDT, Dry We... Start Date: 12/30/20 Status: Ordered nadolol 20 mg oral tablet 20 mg, 1, tablet, By Mouth, Daily, dose increase, # 90 tablet, Refills 3, Tot. Refills 3, Maintenance, 01/25/21 15:04:00 EDT, Route to Pharmacy Electronically, [facility], home delivery, 168, cm, 12/30/20 [...]
--- OUTSIDE RECORDS SUMMARY | 2023-12-11 06:38 | XMS_ITS | Continuity of Care Document ---
Author Name Unknown Organization [facility] Address [address] [place] [id number]- Care Team Providers Care Milieu Therapist Name Role Phone Claude Choi MD Primary Care Physician [phone] Encounter [facility] Date(s): 07/28/22 - 08/27/22 [facility] [address]- [place] Allergies, Adverse Reactions, Alerts Substance Reaction Severity Status ibuprofen Vesiculobullous rash Active hydrOXYzine Vesiculobullous rash Active Librium Vesiculobullous rash Active amLODIPine Edema Active Immunizations Given and Recorded Vaccine Date Status Refusal Reason pneumococcal 23-valent vaccine 11/26/21 Given pneumococcal 23-valent vaccine 1 11/07/13 Given SARS-CoV-2 (COVID-19) mRNA BNT-162b2 vac 11/11/21 Given SARS-CoV-2 (COVID-19) mRNA BNT-162b2 vac 10/21/21 Given influenza virus vaccine, inactivated 10/21/21 Give n influenza virus vaccine, inactivated 09/10/19 Saeid rded influenza virus vaccine, inactivated 08/17/16 Give n influenza virus vaccine, inactivated 07/30/14 Give n influenza virus vaccine, inactivated 2 11/07/13 Gi jonathan tetanus/diphtheria/pertussis, acel(Tdap) 3 11/13/13 Given 1Result Comment: [11/07/2013] Ordered by Thaddeus Uriostegui MD [facility] STOCK 2Result Comment: [11/07/2013] Ordered by Thaddeus Uriostegui MD LOWER SITE 3Result Comment: [11/13/2013] Ordered by Thaddeus Uriostegui MD [facility] STOCK Medications acetaminophen 325 mg oral tablet 650 mg, 2, tablet, By Mouth, 4 times a day, PRN, # 100 tablet, Refills 1, Tot. Refills 1, Maintenance, as needed for pain, 12/30/20 17:02:00 EST, Route to Pharmacy Electronically, [facility], home delivery, 168, cm, 12/30/20 14:40:... Start Date: 12/30/20 Status: Ordered buPROPion 300 mg/24 hours (XL) oral tablet, extended release 1 tablet = 300 mg, By Mouth, Daily, # 90 tablet, 3 Refills, Maintenance, 11/26/21 15:45:00 EST, ER Tablet, [facility], Partial fill upon patient request if the prescription is fora schedule II opioid drug., 168, cm, 11/26/21 15:20... Start Date: 11/26/21 Status: Ordered Cane See Instructions, # 1 [...] 12/17/21 15:50:00 EST, Route to Pharmacy Electronically, [facility], 168, cm, 12/17/21 14:54:00 EST, Height, [...] increase, # 90 tablet, 3 Refills, Maintenance, 11/26/21 16:01:00 EST, Tablet, [facility], Partial fill upon patient request if the prescription is for a schedule II opioid drug., 168, cm, ... Start Date: 11/26/21 Status: Ordered magnesium oxide 400 mg oral tablet 1 tablet = 400 mg, By Mouth, Daily, # 90 tablet, 3 Refills, Maintenance, 10/21/21 13:24:00 EST, [facility], home delivery, 168, cm, 10/20/21 16:08:00 EST, Height, 64.09, kg, 07/29/20 13:46:00 EDT, Dry Weight Start Date: 10/21/21 Status: Ordered Mavyret 100 mg-40 mg oral tablet 3 tablet, By Mouth, Daily, x 8 weeks total, # 84 tablet, 1 Refills, Maintenance, 12/03/21 0:17:00 EST, [facility], 3 tablet By Mouth Daily,Instr:x 8 weeks total, 168, cm, 11/26/21 15:20:00 EST, Height, 64.09, kg, 07/29/20 13:46:00 EDT... Start Date: 12/03/21 Status: Ordered multivitamin Multiple Vitamins oral tablet 1 tablet, By Mouth, Daily, b complex, # 90 tablet, 3 Refills, Maintenance, 12/17/21 15:56:00 EST, [facility], 1 tablet By Mouth Daily,Instr:b complex, 168, cm, 12/17/21 14:54:00 EST, Height, 64.09, kg, 07/29/20 13:46:00 EDT, Dry We... Start Date: 12/17/21 Status: Ordered pantoprazole 40 mg oral delayed [...] 11 Refills, Maintenance, 07/29/22 12:40:00 EDT, Tablet, [facility], 168, cm, 12/17/21 14:54:00 EST, Height, [...] a day. Sex Patient Care team information Personnel Name: Claude Choi MD Address: Address: [address] [place] [address]
--- OUTSIDE RECORDS SUMMARY | 2023-12-11 06:39 | XMS_ITS | Continuity of Care Document ---
Author Name Unknown Organization [facility] Address [address] [place] [address]- Care Team Providers Care Technician Assistant Name Role Phone Claude Choi MD Primary Care Physician Encounter [id number] Date(s): 02/05/21 - 03/07/[address] [address]- Attending Physician: Admanaly, Viridiana Admitting Physician: Admtr, Ar8 Referring Physician: Admtr, Ar8 Allergies, Adverse Reactions, [...] 12/30/20 17:02:00 EST, Route to Pharmacy Electronically, [facility], [place] delivery, 168, cm, 12/30/20 14:40:... Start Date: [...] 12/30/20 17:02:00 EST, Route to Pharmacy Electronically, [facility], home delivery, 168, cm, 12/30/20 14:40:00 EST, Height, 64.09, kg, 07/29/20... Start Date: 12/30/20 Status: Ordered magnesium oxide 400 mg oral tablet 1 tablet = 400 mg, By Mouth, Daily, # 90 tablet, 3 Refills, Maintenance, 12/30/20 17:02:00 EST, [facility], home delivery, 168, cm, 12/30/20 14:40:00 EST, Height, 64.09, kg, 07/29/20 13:46:00 EDT, Dry Weight Start Date: 12/30/20 Status: Ordered multivitamin Multiple Vitamins oral tablet 1 tablet, By Mouth, Daily, b complex, # 90 tablet, 3 Refills, Maintenance, 12/30/20 17:07:00 EST, [facility], 1 tablet By Mouth Daily,Instr:b complex, 168, cm, 12/30/20 14:40:00 EST, Height, 64.09, kg, 07/29/20 13:46:00 EDT, Dry We... Start Date: 12/30/20 Status: Ordered nadolol 20 mg oral tablet 20 mg, 1, tablet, By Mouth, Daily, dose increase, # 90 tablet, Refills 3, Tot. Refills 3, Maintenance, 01/25/21 15:04:00 EDT, Route to Pharmacy Electronically, [facility], home delivery, 168, cm, 12/30/20 14:40:00 [...]
--- OUTSIDE RECORDS SUMMARY | 2023-12-11 06:39 | XMS_ITS | Continuity of Care Document ---
Author Name Unknown Organization [facility] Address Unknown Care Team Providers Care Lodge Sales Associate Name Role Phone Claude Choi MD Primary Care Physician [phone] Encounter [facility] [place] Date(s): 09/29/21 - 10/29/21 [facility] Allergies, Adverse Reactions, Alerts Substance Reaction Severity Status ibuprofen Vesiculobullous rash Active hydrOXYzine Vesiculobullous rash Active Librium Vesiculobullous rash Active amLODIPine Edema Active Immunizations Given and Recorded Vaccine Date Status Refusal Reason influenza virus vaccine, inactivated 10/21/21 Give n influenza virus vaccine, inactivated 08/17/16 Give n influenza virus vaccine, inactivated 07/30/14 Give n influenza virus vaccine, inactivated 1 11/07/13 Gi jonathan SARS-CoV-2 (COVID-19) mRNA BNT-162b2 vac 10/21/21 Given tetanus/diphtheria/pertussis, acel(Tdap) 2 11/13/13 Given pneumococcal 23-valent [...] 17:02:00 EST, Route to Pharmacy Electronically, [facility], [place], 168, cm, 12/30/20 14:40:... Start Date: 12/30/20 Status: Ordered buPROPion 150 mg/24 hours (XL) oral tablet, extended release 1 tablet = 150 mg, By Mouth, Every 24 hours, # 30 tablet, 3 Refills, Maintenance, 10/21/21 13:14:00EST, [facility], 1 tablet By Mouth Every 24 hours, 168, cm, 10/20/21 16:08:00 EST, Height, 64.09, kg, 07/29/20 13:46:00 EDT, Dry We... Start Date: 10/21/21 Status: Ordered Cane See Instructions, # 1 [...] By Mouth, Daily, # 30 tablet, Refills 5, Tot. Refills 5, Maintenance, 10/21/21 13:22:00 EST, Route to Pharmacy Electronically, [facility], 168, cm, 10/20/21 16:08:00 EST, Height, 64.09, kg, 07/29/20 13:46:00 EDT,... Start Date: 10/21/21 Status: Ordered grab-bar/hand rails for shower/tub grab-bar/hand rails for shower/tub, See Instructions, # 1 each, Refills 0, Tot. Refills 0, Maintenance, Dx: M54.3 Duration: permanent/over 1 year, 12/30/20 19:51:00 EST, Compound Start Date: 12/30/20 Status: Ordered lisinopril 20 mg oral tablet 20 mg, 1, tablet, By Mouth, Daily, # 30 tablet, Refills 5, Tot. Refills 5, Maintenance, 10/21/21 13:21:00 EST, Route to Pharmacy Electronically, [facility], 168, cm, 10/20/21 16:08:00 EST, Height, 64.09, kg, 07/29/20 13:46:00 EDT,... Start Date: 10/21/21 Status: Ordered magnesium oxide 400 mg oral tablet 1 tablet = 400 mg, By Mouth, Daily, # 90 tablet, 3 Refills, Maintenance, 10/21/21 13:24:00 EST, [facility], home delivery, 168, cm, 10/20/21 16:08:00 EST, Height, 64.09, kg, 07/29/20 13:46:00 EDT, Dry Weight Start Date: 10/21/21 Status: Ordered multivitamin Multiple Vitamins oral tablet 1 tablet, By Mouth, Daily, b complex, # 90 tablet, 3 Refills, Maintenance, 12/30/20 17:07:00 EST, [facility], 1 tablet By Mouth Daily,Instr:b complex, 168, cm, 12/30/20 14:40:00 EST, Height, 64.09, kg, 07/29/20 13:46:00 EDT, Dry We... Start Date: 12/30/20 Status: Ordered pantoprazole 40 mg oral delayed [...] pack or more)/day in last 30 days; Exposure to Secondhand Smoke: No entered on: 10/20/21 Sex
--- OUTSIDE RECORDS SUMMARY | 2023-12-11 06:39 | XMS_ITS | Continuity of Care Document ---
Author Name Unknown Organization [facility] Address [address] [place] [address]- Care Team Providers Care Information Assurance Manager Name Role Phone Jimbo STUART, Claude Márquez Primary Care Physician [phone] Encounter [facility] Date(s): 09/23/23 - 10/23/23 [facility]/[address] [address]- [place] Allergies, Adverse Reactions, Alerts Substance Reaction Severity Status ibuprofen Vesiculobullous rash Active hydrOXYzine Vesiculobullous rash Active Librium Vesiculobullous rash Active amLODIPine Edema Active acetaminophen swelling Acute edema Rash Active Immunizations Given and Recorded Vaccine Date Status Refusal Reason [id number] 12y+ bivalent booster vax 09/02/22 Given influenza [...] 08/16/23 12:10:00 EDT, [id number] 168, cm, 08/16/23 5:07:00 EDT, Height, 59, kg, 08/16/23 5:07:00 EDT, Dry Weight Start Date: 08/16/23 Stop Date: 12/14/23 Status: Ordered lisinopril 40 mg oral tablet 1 tablet = 40 mg, By Mouth, Daily, dose increase, # 30 tablet, 3 Refills, Maintenance, 08/16/23 12:10:00 EDT, Tablet, [facility]/pharmacy #1026, Partial fill upon patient request if the prescription is for a schedule II opioid drug., 168, cm, 08/16/23 5:07:0... Start Date: 08/16/23 Stop Date: 12/14/23 Status: Ordered magnesium oxide 400 mg oral tablet 1 tablet = 400 mg, By Mouth, Daily, # 90 tablet, 3 Refills, Maintenance, 11/23/22 23:08:00 EST, [facility]/pharmacy #[id number], home delivery, 168, cm, 11/23/22 15:18:00 [...] 11 Refills, Maintenance, 11/23/22 23:08:00 EST, Tablet, [facility]/pharmacy #[id number], 168, cm, 11/23/22 15:18:00 EST, Height, [...] remission, on maintenance therapy, dependence Confirmed Active [id number] Sales Contracts Analyst Ashly Coleman Confirmed Active Peptic ulcer without hemorrhage, without perforation AND without obstruction Confirmed Active Cannabis use disorder, moderate Confirmed Active Tobacco use disorder Confirmed Active Urinary incontinence Confirmed Active Social History Social History Type Response Tobacco Other: a pack a day. Sex Patient Care team information Care Team Personnel Name: Claude Choi MD Position: [facility] Physician - Primary Care Member Role: PCP Address: Address: [address] [place] [address]- Care Team Related Persons Name: PALMIRA MCGILL Address: home [address] [address] Name: SANDRITA BROOKS Address: [address] [address] Name: JD BROOKS Name: MANOHAR LYNN Name: HOLLY TORRES Address: home [address] [place] [address]
--- OUTSIDE RECORDS SUMMARY | 2023-12-11 06:39 | XMS_ITS | Continuity of Care Document ---
Author Name Unknown Organization [facility] Address Unknown Care Team Providers Care Measuring Clerk Name Role Phone Claude Choi MD Primary Care Physician Encounter [facility] [place] [place] Date(s): 10/21/21 - 11/28/21 [facility] Attending Physician: Claude Choi MD Admitting Physician: [...] 12/30/20 17:02:00 EST, Route to Pharmacy Electronically, [facility], home delivery, 168, cm, 12/30/20 14:40:... Start Date: 12/30/20 Status: Ordered buPROPion 300 mg/24 hours (XL) oral tablet, extended release 1 tablet = 300 mg, By Mouth, Daily, # 90 tablet, 3 Refills, Maintenance, 11/26/21 15:45:00 EST, ER Tablet, [facility], Partial fill upon patient request if [...] 10/21/21 13:22:00 EST, Route to Pharmacy Electronically, [facility], 168, cm, 10/20/21 16:08:00 EST, Height, 64.09, [...] 3 Refills, Maintenance, 11/26/21 16:01:00 EST, Tablet, [facility], Partial fill upon patient request if the prescription is for a schedule II opioid drug., 168, cm, ... Start Date: 11/26/21 Status: Ordered magnesium oxide 400 mg oral tablet 1 tablet = 400 mg, By Mouth, Daily, # 90 tablet, 3 Refills, Maintenance, 10/21/21 13:24:00 EST, [facility], home delivery, 168, cm, 10/20/21 16:08:00 EST, Height, 64.09, kg, 07/29/20 13:46:00 EDT, Dry Weight Start Date: 10/21/21 Status: Ordered multivitamin Multiple Vitamins oral tablet 1 tablet, By Mouth, Daily, b complex, # 90 tablet, 3 Refills, Maintenance, 12/30/20 17:07:00 EST, [facility], 1 tablet By Mouth Daily,Instr:b complex, [...] dysfunction, # 5 tablet, 11 Refills, Maintenance, 11/26/21 15:55:00 EST, Tablet, [facility], Partial fill upon patient requestif the prescription is for a schedule II opioid nicole... Start Date: 11/26/21 Status: Ordered Problem List Condition Effective Dates Status Health Status Inform ant Anxiety(Confirmed) Active Atherosclerosis of aorta- pl aque on [place](Confirmed) 2016 Active Essential hypertension(Confirmed) Active CKD (chronic kidney disease) stage 2, GFR 60-89 ml/min(Confirmed) Active Chronic sciatica of right side(Confirmed) Active Depressive disorder(Confirmed) Active GERD (gastroesophageal reflu x disease)(Confirmed) Active Cardiac murmur(Confirmed) Active Low back pain(Confirmed) Active Opioid use disorder, severe, in early remission, on maintenance therapy, dependence(Confirmed) Active Peptic ulcer without hemorrh age, without perforation AND without obstruction(Confirmed) Active Cannabis use disorder, moderate(Confirmed) Active Tobacco use disorder(Confirmed) Active Urinary incontinence(Confirmed) Active Social History Social History Type Response Tobacco Other: a pack a day. Sex
--- OUTSIDE RECORDS SUMMARY | 2023-12-11 06:39 | XMS_ITS | Continuity of Care Document ---
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 Name Role Phone Jimbo STUART, Claude Márquez Primary Care Phys[place] [facility] [place]): [place] - 12/03/[address] [address]- Discharge Disposition: A-D/C Home Attending Physician: Rickey Nguyen MD Admitting Physician: Virgil Montgomery MD Referring Physician: Not on Staff, Referring MD Allergies, Adverse Reactions, Alerts Substance Reaction Severity Status ibuprofen Vesiculobullous rash Active acetaminophen swelling Acute edema Rash Active hydrOXYzine Vesiculobullous rash Active Librium Vesiculobullous rash Active amLODIPine Edema Active Immunizations Given and Recorded Vaccine Date Status Refusal Reason [id number] 12y+ bivalent booster vax 09/02/22 Given influenza [...] Comment: [11/07/2013] Ordered by Thaddeus Uriostegui [place] [facility] [place]Result Comment: [11/13/2013] Ordered by Thaddeus Uriostegui [place] [facility] [place] Medications buprenorphine-naloxone 8 mg-2 mg sublingual film 1 film, Sublingual, Daily, # 3 film, 0 Refills, Maintenance, 12/04/23 9:00:00 EST, Film, [facility], Partial fill upon patient request if the prescription is for a schedule II opioid drug., 1 film Sublingual Daily,x3 days, 170, cm, 12/02... Start Date: 12/04/23 Stop Date: 12/07/23 Status: Ordered cephalexin monohydrate 500 mg oral capsule 1 capsule = 500 mg, By Mouth, 4 times a day, for 14 days, # 56 capsule, 0 Refills, Acute 12/17/23 10:49:00 EST, 12/03/23 10:49:00 EST, Capsule, [facility], Partial fill upon patient request if the prescription is for a schedule II opioid... Start Date: 12/03/23 Stop Date: 12/17/23 Status: Ordered lidocaine 4% topical cream 1 application, Topically, 2 times a day, for 5 days, apply on front chest tender area, do not applyon open wound, not to exceed 3 applications in 24 hours., # 15 Gm, 0 Refills, Acute 12/08/23 10:52:00 EST, 12/03/23 10:52:00 EST, Cream, [facility]... Start Date: 12/03/23 Stop Date: 12/08/23 Status: Ordered lisinopril 20 mg oral tablet 40 mg, Tablet, By Mouth, 12/03/23 11:21:00 EST Start Date: 12/03/23 Stop Date: 12/03/23 Status: Completed lisinopril 40 mg oral tablet 1 tablet = 40 mg, By Mouth, Daily, # 90 tablet, 0 Refills, Maintenance, 12/03/23 10:51:00 EST, Tablet, [facility], Partial fill upon patient request if the prescription is for a schedule II opioid drug., 170, cm, 12/02/23 20:20:00 EST, H... Start Date: 12/03/23 Status: Ordered mupirocin 2% topical ointment 1 application, Topically, 3 times a day, for 5 days, apply a thin film on left foot toes open area,cover with gauze, # 22 Gm, 0 Refills, Acute 12/08/23 11:00:00 EST, 12/03/23 11:00:00 EST, Ointment,[facility], Partial fill upon patient... Start Date: 12/03/23 Stop Date: 12/08/23 Status: Ordered Narcan 4 mg/0.1 mL nasal spray = 4 mg, Naris, Left, Once, PRN Other, To reverse opioid overdose, may repeat every 2 to 3 minutes until patient responds, call 911 in the meantime, # 2 each, 0 Refills, Soft Stop, 12/03/23 10:48:00 EST, [facility], Partial fill upon pa... Start Date: 12/03/23 Status: Ordered ondansetron 4 mg oral tablet, disintegrating 1 tablet = 4 mg, By Mouth, Every 8 hours, PRN as needed for nausea/vomiting, # 20 tablet, 0 Refills, Maintenance, 12/03/23 15:44:00 EST, DIS Tablet, [facility], Partial fill upon patient request if the prescription is for a schedule II o... Start Date: 12/03/23 Status: Ordered Problem List Condition Confirmation Course [...] remission, on maintenance therapy, dependence Confirmed Active [id number] Rig Mechanic Ashly Coleman Confirmed Active Peptic ulcer without hemorrhage, without perforation AND without obstruction Confirmed Active Cannabis use disorder, moderate Confirmed Active Tobacco use disorder Confirmed Active Urinary incontinence Confirmed Active Results Orders for Microbiology Reports Name Date Blood Culture 12/02/23 Blood Culture #2 12/02/23 Microbiology Reports TEST:Blood Culture STATUS:Unauthenticated BODY SITE: SOURCE:Blood COLLECTED DATE/TIME:12/02/23 8:22 AM Blood Culture SPECIMEN DESCRIPTION : BLOOD RAC SPECIAL REQUESTS : NONE CULTURE : NO GROWTH AFTER 24 HOURS REPORT STATUS : PRELIMINARY REPORT TEST:Blood Culture, Second Order STATUS:Unauthenticated BODY SITE: SOURCE:Blood COLLECTED DATE/TIME:12/02/23 8:22 AM Blood Culture, Second Order SPECIMEN DESCRIPTION : BLOOD LAC SPECIAL REQUESTS : NONE CULTURE : NO GROWTH AFTER 24 HOURS REPORT STATUS : PRELIMINARY REPORT Radiology Reports * Exam Date Time Procedure Performing Provider Status 12/03/23 8:52 AM Foot Min 3 Views Left Jesica Landry; Yulisa uth (Verified) Notes: (Foot Min 3 Views Left) Reason For Exam: Left foot cellulitis, r/o osseous infection or foreign body;Erythema RESULT: Foot Min 3 Views Left Foot Min 3 Views Left, 3 views Reason: Erythema; Left foot cellulitis, r o osseous infection or foreign body COMPARISON: None. FINDINGS: No fractures or bone lesions. Partial distal amputation of the second digit. Fused appearance of the third digit. Diffuse degenerative changes of the foot including the first metatarsophalangeal joint. There are likely degenerative changes of the heads of the fourth and fifth metatarsals. Milder degenerative changes of the remaining interphalangeal joint spaces. No significant erosive changes to suggest chronic osteomyelitis. Possible soft tissue defect involving the lateral aspect of the tip of the first digit. Possible soft tissue defect in the soft tissues between the first and second digits. No significant soft tissueswelling. No radiopaque foreign body. IMPRESSION: 1. No acute fracture or dislocation. 2. No significant erosive changes to suggest chronic osteomyelitis. 3. No radiopaque foreign body. WSN: [id number] Ordering Physician: Rickey Nguyen Dictated By: Chuy Hernández MD Dictated Date/Time: 12/03/23 10:39 a Reviewed By: Chuy Hernández MD Signed By: Chuy Hernández MD Signed Date/Time: 12/03/23 10:39 am Transcribed By: LORENA Transcribed Date/Time: 12/03/23 10:34 am * Exam Date Time Procedure Performing Provider Status 12/02/23 11:58 AM US Doppler Ext Lower Venous Left Gaurav Miranda; Auth (Verified) Notes: (US Doppler Ext Lower Venous Left) Reason For Exam: Swelling Extremities RESULT: US Doppler Ext Lower Venous Left US Doppler Ext Lower Venous Left Reason: Swelling Extremities; Clinical Question(s): Thrombus COMPARISON: 09/21/2023 IMAGING TECHNIQUE: Ultrasound of the veins from [...] Contralateral common femoral vein: Patent. No thrombosis. OTHER FINDINGS: Scattered atherosclerotic plaque. IMPRESSION: No evidence of deep venous thrombosis. WSN: [id number] Ordering Physician: Hussain Mcfarland Dictated By: Mina Dallas MD Dictated Date/Time: 12/02/23 12:06 p Reviewed By: Mina Dallas MD Signed By: Mina Dallas MD Signed Date/Time: 12/02/23 12:06 pm Transcribed By: LORENA Transcribed Date/Time: 12/02/23 12:06 pm * Exam Date Time Procedure Performing Provider Status 12/01/23 1:01 PM Chest Portable Adore Negron; Karina alberto (Verified) Notes: (Chest Portable) Reason For Exam: Shortness of Breath RESULT: Chest Portable Chest Portable Hx of Present Illness: Pt arrived to ed via ems after snorting an unknown substance pt became unresponsive with bystanders performing cpr x 5 minutes- upon ems arrival- pt was breathing 2 times perminute- bag valved; Reason: Shortness of Breath; Clinical Question(s): CHF COMPARISON: 08/15/2023. FINDINGS: LINES AND TUBES: None. LUNGS AND PLEURA: There is suboptimal positioning. The left apex of lung is obscured by low position of the head. Otherwise clear lungs. Normal pulmonary vascularity. No pleural effusion. No pneumothorax. HEART, MEDIASTINUM AND MAYTE: Heart is normal in size. Normal mediastinal and hilar contour. BONES AND SOFT TISSUES: No acute abnormality. IMPRESSION: No acute abnormality. WSN: [id number] Ordering Physician: Deny Disla Dictated By: Frederick Moyer MD Dictated Date/Time: 12/01/23 1:12 pm Reviewed By: Frederick Moyer MD Signed By: Frederick Moyer MD Signed Date/Time: 12/01/23 1:12 pm Transcribed By: LORENA Transcribed Date/Time: 12/01/23 1:11 pm Vital Signs Most recent to oldest [Reference Range]: 1 2 3 Height 170 cm (12/02/23 8:20 PM) 170 cm (12/02/23 7:57 PM) 170 cm (12/02/23 1:28 PM) Weight 61.6 kg (12/02/23 8:20 PM) 61.6 kg (12/02/23 7:57 PM) 64 kg (12/02/23 1:28 PM) Oxygen Saturation [94-100 %] 98 % (12/03/23 3:00 PM) 99 % (12/03/23 11:30 AM) 100 % (12/03/23 7:00 AM) Pulse Rate [55-90 bpm] 81 bpm (12/03/23 3:00 PM) 104 bpm *H* (12/03/23 11:30 AM) 90 bpm (12/03/23 7:00 AM) Body Mass Index [18.5-24.99 kg/m2] 21.31 kg/m2 (12/02/23 8:20 PM) 21.31 kg/m2 (12/02/23 7:57 PM) 22.15 kg/m2 (12/02/23 1:28 PM) Blood Pressure [90-138/55-84 mm Hg] 152/81mm Hg *H* (12/03/23 3:00 PM) 177/88mm Hg *H* (12/03/23 11:31 AM) 142/88mm Hg *H* (12/03/23 11:30 AM) Respiratory Rate [16-30 br/min] 18 br/min (12/03/23 3:00 PM) 18 br/min (12/03/23 11:30 AM) 20 br/min (12/03/23 7:00 AM) Temperature [96.8-100.4 DegF] 98.9 DegF (12/03/23 3:00 PM) 98.6 DegF (12/03/23 1:00 PM) 99.3 DegF (12/03/23 11:30 AM) Mode of Delivery (Oxygen) Room air (12/03/23 3:00 PM) Room air (12/03/23 11:30 AM) Room air (12/03/23 7:00 AM) Blood pressure sites Arm, right (12/03/23 3:00 PM) Arm, right (12/03/23 11:30 AM) Arm, right (12/03/23 7:00 AM) Temperature Route Oral (12/03/23 3:00 PM) Oral (12/03/23 11:30 AM) Oral (12/03/23 7:00 AM) Dry Weight 61.6 kg (12/02/23 8:20 PM) 64 kg (12/02/23 1:28 PM) Weight Obtained Via Bed scale (12/02/23 7:57 PM) Social History Social History Type Response Tobacco Other: a pack a day. Sex Admission evaluation note * Bartolo STUART, Noor: PERFORM, MODIFY, MODIFY, MODIFY Event Display: Admission Note Authored Date: Patient: ??JOVAN LOPEZ ? Age:??68 Years?Sex:??Male?:??1955?? Chief Complaint/Reason for Consultation Pt snorted unknown substance- became unresponsive- cpr x 5 minutes started by bystanders- Nausea noted- upon ems arrival- resp of 2- pt was bagged. History of Present Illness Jovan is a 68 year old with past medical history significant for polysubstance abuse??and overdose??more specifically opiate and cocaine -came in for overdose from unknown substance. ?? Patient has history of polysubstance use and family noted that patient had snorted a substance and shortly when unresponsive, family started CPR for 3-5 min when EMS arrived patient had a pulse but had RR of 2-3, family/bistanders administered 16mg of intransal narcan and EMS bagged for a few minutes in route and did not require any additional dosing. Patient was noticed to be??waking up more on arrival and had episode of vomiting.? On my evaluation at bedside patient was more awake.?? AOA x 3??.?He knew that he is at [facility],??he??did not know fine details of the event what brought him here but he did not remember??that he snorted 1 bag of heroin??and after that his assessment??remember what happened and how he got there.?He refused??to use cocaine??although his??urine toxicology is positive for cocaine cannabinoids and opiate.?Patient complains of left??lower extremity pain,??noted to have swelling and induration??but no purulence noted.?Patient denies fever chills??chest pain chest discomfort;??he also??denies abdominal pain constipation or diarrhea??or any abnormal urinary complaints.? Patient is homeless,??and denies using any form of IV drug use.?Does not use any medication at home.?Noncompliant.?Family history unknown.?He??smokes??tobacco.?? And okay with??using nicotine patches.? In the ED, patient has been hemodynamically stable however blood pressure has been noted to be elevated??in 150s to 160s.?Saturating on room air more than 94%.?Respiratory rate??12-14;??did not require any??further Narcan dose??in the ED.??labs??did show leukocytosis 11.6 WBC count,??H&H stable,??platelets stable,??electrolytes??initially??148 sodium??repeat??normalized 143;??initial creatinine elevated 1.5??and repeat showed 1.3 but his baseline 6.9;??troponin flat??peaked at 30;??EKG nonischemic no ST wave??changes??QTc 471.?Chest x- ray negative for any infiltrate.?Urine toxicology positive for opiates/cannabinoids and cocaine??blood alcohol level undetected . patient is being admitted for??cellulitis management??along with clinical??monitoring status post overdose...?? Review of Systems Constitutional:??No weight loss, fever, chills, weakness or fatigue. HEENT:??No visual loss, blurred vision, double vision or yellow sclera. No hearing loss, sneezing, congestion, runny nose or sore throat. Skin:??No rash or itching. Cardiovascular:??_No chest pain palpitationchest discomfort Respiratory:??No shortness of breath, cough or sputum production. Gastrointestinal:??No anorexia, nausea, vomiting or diarrhea. No abdominal pain or blood in stool. Genitourinary:??No burning micturition. No urinary frequency or incontinence. Neurologic:??No headache, dizziness, syncope, unilateral weakness, ataxia, numbness or tingling in the extremities. No change in bowel or bladder control. Musculoskeletal:??Left lower??extremity??pain??along with swelling??and redness.?? Hematologic:??No bleeding or bruising. Psychiatric:??No depression or anxiety. Endocrine:??No reports of sweating. No cold or heat intolerance. No polyuria or polydipsia. Objective Vital Signs?? Temperature: 98 DegF (12/02/23 13:28:00) Temperature Route: Oral (12/02/23 13:28:00) Pulse Rate: 75 bpm (12/02/23 13:28:00) Respiratory Rate: 19 br/min (12/02/23 13:28:00) Systolic Blood Pressure:??213 mm Hg??High (12/02/23 15:16:00) Diastolic Blood Pressure:??91 mm Hg??High (12/02/23 15:16:00) Blood pressure sites: Arm, left (12/02/23 13:28:00) Mean Arterial Pressure: 116 mm Hg (12/02/23 13:28:00) Pulse Pressure: 143 mm Hg (12/02/23 13:28:00) Oxygen Saturation: 98 % (12/02/23 13:23:00) Mode of Delivery (Oxygen): Room air (12/02/23 13:23:00) End Tidal CO2: 52 mm Hg (12/02/23 05:03:00) Early Warning Score: 3 (12/02/23 15:19:59) ? Physical Exam Constitutional: Alert, in no acute distress. Head: Normocephalic. Eyes: Pupils are equal, round and reactive to light. Extraocular muscles intact. No pallor or scleral icterus Ear, Nose and Throat: mucous membranes moist. Ears and nose - no obvious deformities. Trachea midline. Neck: Supple, Full range of motion.No JVD or bruits. Respiratory:??Clear to auscultation. No wheezing or rhonchi.??No use of accessory muscles. No tactile fremitus.?? Cardiovascular:??PMI not visible. S1 S2 regular. No murmurs, rubs or gallops. Gastrointestinal:??Abdomen soft, non-tender, non-distended. Normal bowel sounds. No pulsatile mass.No hepatosplenomegaly. Genitourinary:??No costovertebral angle tenderness. Extremities:??Left lower extremity:??Erythema induration,??swelling,??no purulence.?? Neurologic:??AAOx3, Cranial nerves II-XII grossly intact. Speech normal, no facial droop. No focal neurological deficits. Moves all extremities spontaneously. Sensation intact bilaterally.??Flexor plantar response Skin:??No rash.?? Musculoskeletal:??No gross deformities on inspection. Normal range of motion in hips, knees, ankles. Gait??_? .??Muscle strength within normal limits Heme/Lymphatics:??Palpation of neck reveals no swelling or tenderness of neck nodes.?? Psychiatric: Normal mood and affect. Assessment/Plan Assessment:??Jovan is a 68 year old with past medical history significant for polysubstance abuse??and overdose??more specifically opiate and cocaine -came in for overdose from unknown substance. Patient has history of polysubstance use and family noted that patient had snorted a substance and shortly when unresponsive, family started CPR for 3-5 min when EMS arrived patient had a pulse but had RR of 2-3, family/bistanders administered 16mg of intransal narcan and EMS bagged for a few minutes in route and did not require any additional dosing. Patient was noticed to be??waking up more on arrival and had episode of vomiting.? In the ED, patient has been hemodynamically stable however blood pressure has been noted to be elevated??in 150s to 160s.?Saturating on room air more than 94%.?Respiratory rate??12-14;??did notrequire any??further Narcan dose??in the ED.??labs??did show leukocytosis 11.6 WBC count,??H&H stable,??platelets stable,??electrolytes??initially??148 sodium??repeat??normalized 143;??initial creatinine elevated 1.5??and repeat showed 1.3 but his baseline 6.9;??troponin flat??peaked at 30;??EKG nonischemic no ST wave??changes??QTc 471.?Chest x- ray negative for any infiltrate.?Urine toxicology positive for opiates/cannabinoids and cocaine??blood alcohol level undetected . patient is be ing admitted for??cellulitis management??along withclinical??monitoring status post overdose...? #??DDx:??Polysubstance use-heroin overdose. Cocaine use disorder Marijuana use ?? -Clinically patient is AAO x 3 now.?Occasionally sleepy??but clinically improved saturating morethan 94% on room air. -No need for??capnography at this point. -Addiction team evaluated at bedside. ?? Plan for??starting patient on Suboxone:??1 dose ordered already 2mg/0.5mg of suboxone this afternoon, - after 1-2 hrs, can do another 6mg/1.5mg x1, and - maintain pt on suboxone 8mg/2mg film daily starting tomorrow??12/03. - he is agreeable to take a script of narcan on d/c too. -when hes ready for DC he will just need a bridge script of the suboxone to get him til the appt ? -Addiction coordinator has already scheduled??his appointment??outpatient: ?? Addiction Consultation Team [address] [place] [address] ?? Patient: Jovan Lopez (: 1955) Date: 12/02/2023 You have been referred to the following program ?? [facility] [address] [place] [id number] Appointment: Tuesday12/07/2023 at 1:45pm for Suboxone. ? #??Left lower extremity cellulitis-nonpurulent: Patient is started on cefazolin IV while inpatient??which can be switched to Keflex oral dose??for 10 to 14-day course??upon discharge. -Doppler lower extremity is negative for DVT. ? #??Uncontrolled hypertension: At home patient seems to be on lisinopril and hydrochlorothiazide -he has not been taking home medications for hypertension??noncompliance. -Since patient is allergic to amlodipine;??and in the setting of elevated renal function would avoid lisinopril as well as HCTZ. -Starting patient on hydralazine 25 mg p.o. twice daily.?Will adjust dose as needed to control blood pressure. IV push hydralazine??on board with??as needed parameters. ?? #??Elevated renal function:??Likely prerenal azotemia. Poor p.o. intake looks??hypovolemic. -Starting patient on LR??75 mill per hour. -Creatinine??improved from 1.5-1.3 while his baseline 0.8. -Avoid nephrotoxins and monitor renal function. ?? #??Quality measures: Full code Diet regular DVT prophylaxis Lovenox. ?? Discharge Planning:? Histories Allergies Allergies ?(Active and Proposed Allergies [...] US Cannabis use disorder, moderate Cardiac murmur [phone] Rig Mechanic Ashly Sahante Chronic sciatica of right side CKD (chronic [...] Details:??Living situation: Home/Independent. ??Lives with: Spouse. ??No Homeless/Care Home:. ??Feelsunsafe at home: No. ??Safe place to go: Yes. ??Domestic violence in household: No. ??Alcohol in household: No. ??Firearms in household: No. ??Substance abuse in household: No. ??Smoker in household: No. ??Major illness in household: No. Substance Abuse Details:??Use: Past. ??Type: Cocaine, Heroin, Marijuana. Tobacco Details:??Other: a pack a day. [...] Medications Chlorthalidone (chlorthalidone 25 mg oral tablet)?25?Milligram?1?tablet?By Mouth?Daily?for 30?Days Lisinopril (lisinopril 40 mg oral tablet)?1?tab(s)?40?Milligram?By Mouth?Daily?for 30?Days?dose increase Magnesium Oxide (magnesium oxide 400 mg oral tablet)?1?tab(s)?400?Milligram?By Mouth?Daily Pantoprazole (pantoprazole 40 mg oral delayed release tablet)?1?tab(s)?40?Milligram?By Mouth?Daily?as needed?heartburn?only as needed for symptoms. Sildenafil (sildenafil 100 mg oral tablet)?1?tab(s)?100?Milligram?By Mouth?Daily?as needed?for erectile dysfunction ? EKG study * Event Display: ECG 12-Lead Authored Date: Please click on pdf link to open report * Event Display: ECG 12-Lead Authored Date: Ventricular Rate: 85 BPM Atrial Rate: 85 BPM P-R Interval: 174 ms QRS Duration: 78 ms Q-T Interval: 396 ms QTC Calculation(Bazett): 471 ms P Clinton: 74 degrees R Clinton: 61 degrees T Clinton: 63 degrees Sinus rhythm with occasional Premature ventricular complexes Minimal voltage criteria for LVH, may be normal variant ( Sokolow-Castillo ) Borderline ECG When compared with ECG of 14-AUG-2023 10:45, Premature ventricular complexes are now Present Confirmed by RAD PLASCENCIA ([id number]) on 12/02/2023 2:54:34 PM [place]: RAD PLASCENCIA Hospital Progress note * CindyBelkis walker RN: PERFORM, SIGN, VERIFY, SIGN, MODIFY, SIGN, MODIFY, SIGN, MODIFY Event Display: Progress Note Hospital Authored Date: Patient: JOVAN LOPEZ Age: 68 years Sex: Male : 1955 Associated Diagnoses: None Author: Belkis White RN Findings Problem Related to Alteration in Psychosocial : Alteration in Psychosocial Function/new 12/03/2023 10:00 EST Alteration in Psychosocial Related to Substance abuse, Other: opiate overdose Goals & Outcomes, Psychosocial Psychosocial support will be provided to Pt/S.O. as needed, Pt will identify stressors leading up to event, Pt will state importance of adhering to medication regime, Pt/caregiver will be offered appropriate resources & support, Pt/caregiver will express feelings/needs/fears /concerns, Pt/caregiver will maintain/obtain psychological stability, Pt/caregiver will participate in coping skill counseling, Pt successfully withdraws with minimal side effects, Encourage patient to attend NA/AA meetings, Pt will be free from withdrawal symptoms, Pt will complete written assignment: Relapse Analysis, Pt will detoxify from substance, Pt will develop plan for sobriety after discharge, Pt will participate in recovery groups, Pt will show motivation for recovery Interventions, Psychosocial Assess psychosocial needs, Assess readiness to learn needed lifestyle changes, Assess/monitor level of consciousness, Collaborate with provider for psychiatric consult, Evaluate resources & support system available to pt, Offer support; discuss coping strategies, Provide a calm, supportive environment BH Goals/Interventions, Psychosocial Yes Psychosocial, Problem Start 12/02/2023 23:00 Reviewed Plan with, Psychosocial Patient Patient Progression, Psychosocial Pt progressing according to plan . * Belkis White RN: PERFORM Event Display: Progress Note Hospital Authored Date: pt A+Ox4. vital signs within normal limits. lungs clear to diminished of room air. bowel sounds present in all four quadrants'. ABD soft & tenderness in lower left quadrant. pt is NSR on tele monitor. pt denies SOB. pt Denies chest pain. pt denies pain. pt is cont of both bowel & bladder. pt tolerating regular diet well. skin is clean, dry & intact. left foot has redness and second toe on left foot is slightly gone. notified. pt went for to X-ray for foot. pt tolerated procedure well. pt took Suboxone per doctors orders. safety measures in place. bed alarm on, bed in lowest position & wheels locked. non-skid socks on pt. hourly rounds made. pt lay comfortable in bed with call osorio & personal belongings in reach. pt needs met at this time. * Belkis White RN: PERFORM Event Display: Progress Note Hospital Authored Date: pt vomited 200cc of cranberry juice. notified. Zofran given. pt needs met at this time. * Belkis White RN: PERFORM Event Display: Progress Note Hospital Authored Date: [id number] pt discharged safely off unit to pharmacy & [facility] via wheelchair. discharge teaching & education reviewed with pt. discharge paperwork signed & placed in patient folder. IV access discontinued. pt left with all personal belongings & valuables'. pt needs met at this time. * Radha Oro RN: PERFORM, SIGN, VERIFY Event Display: Progress Note Hospital Authored Date: Patient: JOVAN LOPEZ Age: 68 years Sex: Male : 1955 Associated Diagnoses: None Author: Radha Oro RN Findings Problem Related to Alteration in Psychosocial : Alteration in Psychosocial Function/new 12/02/2023 23:00 EST Alteration in Psychosocial Related to Substance abuse, Other: opiate overdose Goals & Outcomes, Psychosocial Psychosocial support will be provided to Pt/S.O. as needed, Pt will identify stressors leading up to event, Pt will state importance of adhering to medication regime, Pt/caregiver will be offered appropriate resources & support, Pt/caregiver will express feelings/needs/fears /concerns, Pt/caregiver will maintain/obtain psychological stability, Pt/caregiver will participate in coping skill counseling, Pt successfully withdraws with minimal side effects, Encourage patient to attend NA/AA meetings, Pt will be free from withdrawal symptoms, Pt will complete written assignment: Relapse Analysis, Pt will detoxify from substance, Pt will develop plan for sobriety after discharge, Pt will participate in recovery groups, Pt will show motivation for recovery Interventions, Psychosocial Assess psychosocial needs, Assess readiness to learn needed lifestyle changes, Assess/monitor level of consciousness, Collaborate with provider for psychiatric consult, Evaluate resources & support system available to pt, Offer support; discuss coping strategies, Provide chances to express concerns/emotions/expectations, Provide info on community resources for education, support, Provide information about illness and recovery Goals/Interventions, Psychosocial Yes Psychosocial, Problem Start 12/02/2023 23:00 Reviewed Plan with, Psychosocial Patient Patient Progression, Psychosocial Plan Initiation . Evaluation Patient was transferred from ED. He was not very responsive initially during the admission process.He later woke up and gave answers to the questions asked. He is on room air. No complaints of pain.Complained of difficulty with breathing, seets of vitals obtained and they were all normal- O2 satswas 100%. His head of bed was sat up to 45 degrees. Two minutes later, he said he was ok.Schedlued m edications given and well tolerated. Wound consults sent and pictures uploaded to [facility]. Safety protocols maintained. Call osorio within reach. Bed in low position and lowered. Rounded frequently. . Consult note * Betty Lama: PERFORM, SIGN, VERIFY Event Display: Consultation Note Authored Date: [id number] Patient: JOVAN LOPEZ Age: 68 years Sex: Male : 1955 Associated Diagnoses: None Author: Betty Lama Patient is interested in Suboxone for MAT. Patient has an appointment scheduled at [facility] [place] 12/07/2023 for Suboxone. Patient declined additional resources at this time. Addiction Consultation Team [address] [place] [address] Patient: Jovan Lopez (: 1955) Date: 12/02/2023 You have been referred to the following program [facility] [address] [place] [address] Appointment: Tuesday12/07/2023 at 1:45pm for Suboxone. * Kanika Trores: PERFORM Event Display: Consultation Note Authored Date: [id number] Patient: ??JOVAN LOPEZ ? Age:??68 Years?Sex:??Male?:??1955?? Reason for Consultation Addiction Med Consult - opioid/cocaine use, overdose Requested by??Dr Mcfarland History of Present Illness Jovan Lopez is a??68 yo male with a PMHx of??substance use d/o. He was??admitted 2/1 after??beingBIBA for??overdose. Family was performing CPR, up to 16mg??of narcan had been administered. Pts tox??screen positive for opioids and cocaine. Pt admitted til clinically sober for monitoring. Of note, had seen pt previously in July with a similar presentation, at that time he endorsed only cocaine use and some ETOH use. Dawes at that time the overdose was 2/2 to contamination in the cocaine supply, as pt reported he was not in the habit of??knowingly using opioids. ?? Met with pt this morning. Pt sleepy at times. Pt denies regular use of cocaine, and says that he does not seek cocaine out at all. Rather, he has been using heroin occasionally. Difficult to get pt to be specific about his patterns of usage, but he denies daily use. Pt expresses that he would like to start on maintenance treatment for OUD. He has been on suboxone??before and would be agreeable to resume that. Asked if pt had an idea of what clinic he may want toattend, and pt said he would want to go to [facility]. Despite explaining to pt that [facility] is a pharmacy, and he would need to go to an outpatient clinic to obtain the suboxone script, pt still endorsed he wou ld want to go to [facility]. Asked pt about his interest in pursuing community supports to help him with his substance use. While he is interested in these things, he reports that he has a lot of difficulty with transportation. Pt is also homeless. Pt would be willing to take a script of narcan upon d/c. Pt does not endorse use of other substances at this time, such as ETOH, other stimulants like meth,PCP, illicit pills, etc. Review of Systems Reporting headache. Physical Exam Vitals & Measurements T:??98.0?F?? HR:??74??(Peripheral)?? RR:??19?? BP:??154/80?? SpO2:??99%?? General:??well developed, well nourished,??appears to be stated age.??Breathing is??even and unlabored.??In no acute distress,??no diaphoresis. Sleepy Mental Status Exam: Appearance:??casual?? Attitude:??cooperative? Eye contact:??normal Motor activity:??calm, no aberrant movements? Mood:??euthymic? Affect:??congruent? Speech:??fluent, unimpaired? Judgment:??appears intact? Insight:??appears intact? Thought process:??linear? Reliability:??uncertain? Fund of knowledge:??intact Assessment/Plan Opioid overdose (T40.2X1A) Opioid use disorder (F11.90):??. Pt is aware of the risks of??opioid overdose, including , neurological damage, etc. Pt would be willing to take a script of narcan upon d/c. ?? He is wanting to start on suboxone for maintenance treatment. Since pt received multiple??doses of narcan prior to hospital arrival yesterday,??enough opioids have likely??been displaced by that to start suboxone??later today. Could do suboxone 2mg/0.5mg x1 -->??if this goes well, after 1-2 hrs, can do another 6mg/1.5mg x1. Starting tomorrow, maintain pt on suboxone 8mg/2mg film daily. ?? Pt will be referred to a??suboxone clinic in the??[place] area. He will need a script of suboxone to cover him until his appt.??See addiction coordinator note under consults tab. ?? Additionally, will refer pt to [facility] Transitional program to help get pt set up with more intensive support including transportation, housing support, addiction support including dedicated CM and middle school coach. Pts contact info will be provided to staff at [facility] for follow up. If pt is still here next week, will see if they are able to meet with pt in person. ?? Sent update via??[employer] to Dr Mcfarland Thank you for allowing us to participate in the care of this patient. Please contact me with any questions or concerns. Problem List/Past Medical History Ongoing Anxiety Atherosclerosis of aorta- plaque on US Cannabis use disorder, moderate Cardiac murmur [phone] [employer] Ashly Coleman Chronic headaches Chronic sciatica of right side CKD (chronic kidney disease) stage 2, GFR 60-89 ml/min Depressive disorder Essential hypertension GERD (gastroesophageal reflux disease) Hepatic cirrhosis by Fibrosure due to chronic hepatitis C infection Hepatitis C, chronic. Hx prior hep C cleared SVR 03/2017, gt 1B, F4 by Fibrosure 2016, biopsy ?1999 ?<F2 Immunity to hepatitis A [...] brushing or washing(separate procedure) (09/04/2014) Medications Inpatient Ancef Inj, 1 Gm, IV Push, Every 8 hours Docusate Sodium Capsule, 100 mg= 1 capsule, By Mouth, 2 times a day, PRN Enoxaparin Inj, 30 mg= 0.3 mL, Subcutaneous Injection, Daily Folic Acid Tablet, 1 mg, By Mouth, Daily hydrALAZINE 25 mg oral tablet, 25 mg, By Mouth, 2 times a day hydrALAZINE Inj, 5 mg= 0.25 mL, IV Push Slowly, Every 6 hours, PRN LR 1,000 mL, 1000 mL, IV Infusion Melatonin Tablet, 3 mg, By Mouth, Daily at bedtime, PRN MiraLax Powder, 17 Gm= 1 pack/packet, By Mouth, Daily, PRN Multivit Therapeutic/Minerals Tablet, 1 tablet, By Mouth, Daily NaCL 0.9% Flush, 3 mL, IV Push, Every 8 hours NaCL 0.9% Flush, 3 mL, IV Push, Every 8 hours, PRN Nicotine Topical, 14 mg, Topically, Daily Ondansetron Inj, 4 mg, IV Push Slowly, Every 6 hours, PRN Pyridoxine Tablet, 50 mg, By Mouth, Daily Remove Patch, 1 each, Topically, Daily Simethicone Tablet, 80 mg, Chew, 3 times a day, PRN Thiamine Tablet, 100 mg, By Mouth, 2 times a day Home chlorthalidone 25 mg oral tablet, 25 [...] Living situation: Home/Independent. Lives with: Spouse. No Homeless/Care Home:. Feels unsafe at home:No. Safe place to go: Yes. Domestic violence in household: No. Alcohol in household: No. Firearms in household: No. Substance abuse in household: No. Smoker in household: No. Major illness in household: No. Substance Abuse Use: Past. Type: Cocaine, Heroin, Marijuana. Tobacco Other: a pack a day. Immunizations Vaccine Date Status [id number] 12y+ bivalent booster vax 09/02/2022 Given influenza [...] Thaddeus Uriostegui MD LOWER SITE Note * Belkis White RN: PERFORM Event Display: Discharge/Transfer Note Hospital Authored Date: [id number] Nursing Discharge Note Entered On: 12/03/2023 18:03 EST Performed On: 12/03/2023 18:00 EST by Belkis White RN Nursing Discharge Note 2 Discharge Time : 12/03/2023 18:00 EST Discharge Level of Care at Discharge : Home/[facility] Care Patient Left Unit Via : Wheelchair Patient Accompanied Off Unit with : Responsible adult DC Instructions Provided & Signed by Pt : Yes Patient Understands D/C Instructions : Yes Patient Instructions Discharge Signed : Yes Did Pt have Specialty Bed or Wound Vac : No Belkis White RN - 12/03/2023 18:02 EST * Rickey Nguyen MD: PERFORM Event Display: Discharge/Transfer Note Hospital Authored Date: [id number] Patient: ??JOVAN LOPEZ ? Age:??68 Years?Sex:??Male?:??1955?? Patient Information Discharge Location: S1 Primary Care Physician: Claude Choi MD Admit Date/Time: 12/01/23 23:18 Discharge Disposition Discharge Disposition: Home: No Services Discharge Diagnosis Opioid use disorder, severe, dependence (F11.20) Toxic encephalopathy (G92.9) Cocaine use disorder, severe, dependence (F14.20) Acute kidney injury (N17.9) Cannabis use disorder, moderate (F12.90) Essential hypertension (I10) Cellulitis of left foot (L03.116) Cirrhosis of liver (K74.60) ?? _ Discharge Medications Buprenorphine-Naloxone (buprenorphine-naloxone 8 mg-2 mg sublingual film)?1?Film?Sublingual?Daily?for 3?Days Cephalexin (cephalexin monohydrate 500 mg oral capsule)?1?capsule?500?Milligram?By Mouth?4 times a day?for 14?Days Lidocaine Topical (lidocaine 4% topical cream)?1?megan?Topically?2 times a day?for 5?Days?apply on front chest tender area, do not apply on open wound, not to exceed 3 applicationsin 24 hours. Lisinopril (lisinopril 40 mg oral tablet)?1?tab(s)?40?Milligram?By Mouth?Daily Mupirocin Topical (mupirocin 2% topical ointment)?1?megan?Topically?3 times a day?for 5?Days?apply a thin film on left foot toes open area, cover with gauze nalOXONE (Narcan 4 mg/0.1 mL nasal spray)?4?Milligram?Naris, Left?Once?as needed?Other?To reverse opioid overdose, may repeat every 2 to 3 minutes until patient responds, call 911 in the meantime ? Quality Measures Tobacco Use Treatment:? Durable Medical Equipment Ambulatory devices needed: None (12/03/23) ? Medications Started Suboxone 8 mg daily for 3 days Keflex 500 mg qid for 14 days Lisinopril (resumed) Narcan Medications Discontinued N/A Doses Changed N/A PCP Follow-Up/Heads-Up BP management, OUD management Hospital Course Mr. Lopez is a 68 years old male with PMHx including but not limited to substance use disorder, HTN, hepatitis C in SVR, liver cirrhosis, he was found unresponsive at the scene received a brief course of CPR and eventually regain conscious after 16 mg of Narcan. His hemodynamics and mentation has been intact since arrival to ER, with labs showed mild PAM resolved with IVF. He was seen by addiction medicine team and agreed to start Suboxone for OUD and received 2 doses in hospital with good tolerance at 8 mg daily, without evidence of oversedation or withdrawal, he was found to have L foot non-purulent cellulitis without sepsis and received IV abx. Today he is alert and oriented, coherent and cooperative, other than central sternum pain from CPR no other new complaints, he is not sure howwhen or how L foot got infected but denied recent trauma, Doppler and DX no acute findings and clinical exam did not show evidence of abscess or septic joint, few scabbed very small wound at the bed of nails but otherwise no open wound, will discharge with PO abx, wound care instructions and Suboxone (3 more doses) with scheduled Suboxone clinic on Tuesday12/07/2023 at 01:45 PM. Objective Assessment and Plan ?? Opioid use disorder, severe, dependence (F11.20) Cocaine use disorder, severe, dependence (F14.20) Cannabis use disorder, moderate (F12.90) Toxic encephalopathy (G92.9) ?? Cellulitis of left foot (L03.116) -no evidence of abscess, septic joint or clinical evidence of sepsis, Doppler negative for DVT, foot DX no evidence of osseous infection or foreign body, will discharge with PO abx and local wound care ?? Acute kidney injury (N17.9) -pre-renal, resolved ?? Essential hypertension (I10) -resume lisinopril ?? Cirrhosis of liver (K74.60) -per chart review due to hepatitis C in SVR, HCC screening with??PCP ?? Discussed with RN. Measurements?? Height: 170 cm (12/02/23) Weight: 61.6 kg (12/02/23) Dry Weight: 61.6 kg (12/02/23) Body Mass Index: 21.31 kg/m2 (12/02/23) ? Vital Signs?? Temperature: 98.3 DegF (12/03/23 07:00:00) Temperature Route: Oral (12/03/23 07:00:00) Pulse Rate: 90 bpm (12/03/23 07:00:00) Respiratory Rate: 20 br/min (12/03/23 07:00:00) Systolic Blood Pressure:??172 mm Hg??High (12/03/23 08:11:00) Diastolic Blood Pressure:??98 mm Hg??High (12/03/23 08:11:00) Blood pressure sites: Arm, right (12/03/23 07:00:00) Mean Arterial Pressure: 113 mm Hg (12/02/23 20:20:00) Pulse Pressure: 73 mm Hg (12/02/23 20:20:00) Oxygen Saturation: 100 % (12/03/23 07:00:00) Mode of Delivery (Oxygen): Room air (12/03/23 07:00:00) Early Warning Score: 0 (12/03/23 09:12:00) ? Basic ADLs Activity Assistance: One person assistance (12/03/23) Ambulatory devices needed: None (12/03/23) Feeding Assistance: Independent (12/03/23) Hygiene: Complete bath (12/03/23) ? Mobility & Ambulation Level Mobility & Ambulation Level Activity Assistance: One person assistance (12/03/23) Activity Status ADL: Complete bedrest (12/03/23) Ambulatory devices needed: None (12/03/23) ?? Therapeutic Activity Therapeutic Activities/Mobility/Balance?? No qualifying data available. ?? . Physical Exam Constitutional: Alert, in no acute distress. Head EENT: Extraocular muscle movement intact.??Moist mucous membranes.?? Respiratory: Clear to auscultation. No wheezing or crackles. No use of accessory muscles. Cardiovascular: S1S2 regular. No murmurs, rubs or gallops. Gastrointestinal: Abdomen soft, non-tender, non-distended. Normal bowel sounds. Extremities: No lower extremity pitting??edema. No cyanosis or clubbing. L foot plantar erythema and small blister, 2nd and 3th toe small wound with scabs and surrounding erythema, no other significant open wound, purulent discharge or fluctuation. Neurologic: AAOx3, Speech normal. No focal neurological deficits. Psychiatric: Normal mood and affect Consultants Addiction Medicine Pending Results Add On Lab Order ordered on 12/01/2023 Blood Culture ordered on 12/02/2023 Blood Culture #2 ordered on 12/02/2023 Complete Urinalysis ordered on 12/02/2023 Patient Education Titles Cephalexin Oral Capsule?? Zones Cellulitis?? Opiate Use Disorder?? Buprenorphine Discharge Instructions?? Follow-Up Appointments Added Follow Up ?Time Frame ?Comments Claude Choi MD?2 to 3 weeks Patient Instructions You are admitted for opioid overdose and left foot soft tissue infection (cellulitis), you agree tostart Suboxone with last dose given today prior to discharge, you will be prescribed with 3 days ofSuboxone 8 mg daily starting on Tuesday12/04/2023, and follow up outpatient clinic for refill as below:? [facility] [address] [place] [address] Appointment: Tuesday12/07/2023 at 1:45pm for Suboxone. ?? Please??complete??14 days??of??oral??antibiotics (Keflex) for left foot infection, apply mupirocin ointment to small open area on the toes and cover with gauze, apply 3 times a day, change the dressing as needed for soliage;? Your blood pressure is uncontrolled and please resume lisinopril upon discharge, monitor blood pressure reading at home and review with primary care provider to make adjustment as needed;? You may use acetaminophen up to 2000 mg over 24 hours for milder pain (do not exceed this limit to avoid life-threatening liver failure);? Return to nearest emergency room or call 911??if you experience fever T>100.4F, chill, chest pain lasts longer than 10 minutes, shortness of breathing with minimal exertion, worsening or more constant abdominal pain, nausea/vomiting, food intolerance, bloody or tarry stool, extreme fatigue or dizziness, worsening pain, redness, pain??or purulent discharge from left foot,??or other severe and/or persistent symptoms. Post Discharge Care Diet: ??Cardiac diet ?? Activity: ??Ambulate with assistance 3 times a day unless otherwise specified ?? Code Status: ??Full Resuscitation ?? Condition: ??Stable ?? Prognosis: ??Fair ?? Home Health Face to Face ^HomeHealthFTF Results Discharge Labs BLOOD COUNT & DIFF WBC 11.2 k/mm3 (High)?? 12/03/2023 05:29 RBC 3.83 m/mm3 (Low)?? 12/03/2023 05:29 Hgb 10.8 Gm/dL (Low)?? 12/03/2023 05:29 Hct 34.0 % (Low)?? 12/03/2023 05:29 MCV 88.8 femtoliters ()?? 12/03/2023 05:29 MCH 28.2 pg ()?? 12/03/2023 05:29 MCHC 31.8 g/dL (Low)?? 12/03/2023 05:29 Platelet Count 267 k/mm3 ()?? 12/03/2023 05:29 RDW-SD 41.9 femtoliters ()?? 12/03/2023 05:29 MPV 9.8 femtoliters ()?? 12/03/2023 05:29 Nucleated RBC (Automated) 0.0 #/100 WBC'S ()?? 12/03/2023 05:29 Abs. NRBC 0.0 k/mm3 ()?? 12/03/2023 05:29 Abs. Neut 5.4 k/mm3 ()?? 12/01/2023 11:23 Abs. Lymph 2.7 k/mm3 ()?? 12/01/2023 11:23 Abs. Evangeline 0.8 k/mm3 ()?? 12/01/2023 11:23 Abs. Eo 0.5 k/mm3 (High)?? 12/01/2023 11:23 Abs. Baso 0.0 k/mm3 ()?? 12/01/2023 11:23 Neut % 57.4 % ()?? 12/01/2023 11:23 Lymph % 28.8 % ()?? 12/01/2023 11:23 Evangeline % 8.5 % ()?? 12/01/2023 11:23 Eos % 4.7 % ()?? 12/01/2023 11:23 Baso % 0.3 % ()?? 12/01/2023 11:23 Imm Gran 0.3 % ()?? 12/01/2023 11:23 Abs. Imm Gran 0.0 k/mm3 ()?? 12/01/2023 11:23 ?? CARDIAC Nt-Probnp 412 pg/mL (High)?? 12/01/2023 11:23 High Sensitivity Troponin (HSTnT) 27 ng/L (High)?? 12/02/2023 07:42 ?? CHEM GENERAL Sodium 138 mmol/L ()?? 12/03/2023 05:32 Potassium 4.2 mmol/L ()?? 12/03/2023 05:32 Chloride 102 mmol/L ()?? 12/03/2023 05:32 Bicarbonate Level 24 mmol/L ()?? 12/03/2023 05:32 Anion Gap 12 ()?? 12/03/2023 05:32 Glucose Level 87 mg/dL ()?? 12/03/2023 05:32 Glucose, POC 119 mg/dL (High)?? 12/01/2023 11:18 BUN 21 mg/dL ()?? 12/03/2023 05:32 Creatinine-Blood 1.2 mg/dL ()?? 12/03/2023 05:32 Estimated GFR Creatinine 67 ML/MIN/1.73 M2 ()?? 12/03/2023 05:32 Calcium 9.0 mg/dL ()?? 12/03/2023 05:32 Phosphorus 2.6 mg/dL ()?? 12/02/2023 07:42 Magnesium 1.8 mg/dL ()?? 12/02/2023 07:42 Protein, Total 7.6 Gm/dL ()?? 12/01/2023 11:23 Albumin 4.5 Gm/dL ()?? 12/01/2023 11:23 AG Ratio 1.5 ()?? 12/01/2023 11:23 Alkaline Phosphatase 95 units/L ()?? 12/01/2023 11:23 AST (SGOT) 31 units/L ()?? 12/01/2023 11:23 ALT (SGPT) 16 units/L ()?? 12/01/2023 11:23 Bilirubin, Total 0.3 mg/dL ()?? 12/01/2023 11:23 Lactate 1.0 mmol/L ()?? 12/02/2023 07:42 C-Reactive Protein 2.9 mg/dL (High)?? 12/02/2023 07:42 ?? HEME OTHER Sed Rate 56 mm/hr (High)?? 12/02/2023 08:22 Hold Blue Top SPECIMEN DISCARDED AFTER 4 HOURS. ()?? 12/01/2023 11:23 ?? MISC. CHEMISTRY Hold Lambert Top SPECIMEN DISCARDED AFTER 1 WEEK ()?? 12/01/2023 11:23 ? TOXICOLOGY/TDM Ethanol, Serum or Plasma NONE DETECTED mg/dL ()?? 12/01/2023 11:23 Barbiturate Screen, Urine NONE DETECTED ()?? 12/01/2023 23:42 Cannabinoid Screen, Urine POSITIVE (Abnormal)?? 12/01/2023 23:42 Cocaine Metabolite Screen, Urine POSITIVE (Abnormal)?? 12/01/2023 23:42 Benzodiazepine Screen, Urine NONE DETECTED ()?? 12/01/2023 23:42 Amphetamine Screen, Urine NONE DETECTED ()?? 12/01/2023 23:42 Opiate Screen, Urine POSITIVE (Abnormal)?? 12/01/2023 23:42 ? URINE OTHER Est Creatinine Clearance 51.33 mL/min ()?? 12/03/2023 06:32 ? VIROLOGY Influenza A PCR NEGATIVE ()?? 12/01/2023 12:04 Influenza B PCR NEGATIVE ()?? 12/01/2023 12:04 RSV PCR NEGATIVE ()?? 12/01/2023 12:04 COVID-19 PCR Specimen Source NASAL ()?? 12/01/2023 12:04 COVID-19 PCR Result NEGATIVE ()?? 12/01/2023 12:04 ? 40 minutes spent on discharge * Belkis White RN: PERFORM Event Display: Patient Education/Instruction Authored Date: [id number] Inpatient Adult Discharge Instructions. [address] [address] Name: JOVAN LOPEZ : 1955?? Visit: 12/01/2023 23:18?? Current Date: 12/03/2023 17:22 ?? Account: [id number]?? Inpatient Adult Discharge Instructions We would like to thank you for allowing us to assist you with your healthcare needs. The following includes patient education materials and information regarding your injury/illness. Our entire staffstrives to provide an excellent experience for our patients and their families. PLEASE ENSURE YOU FOLLOW-UP PER THE INSTRUCTIONS BELOW! ?? YOUR OPINION IS IMPORTANT TO US! Please complete the survey you may receive by mail or email. Your feedback will be used to make improvements to the healthcare experiences of our patients and their families. Surveys are administered by [employer] ?? If further treatment with your primary care physician or another doctor is recommended, it is important for you to keep the appointment. Call your primary care physician or return to the Emergency Department immediately if your condition worsens, fails to improve, or new symptoms develop. If you need to find a doctor, you can call [facility] [employer] Link for a referral at [phone] or toll free at [phone] or log in to [email or web address].. ?? [facility], in keeping with [facility] guidance, no longer requires face masks for staff, patientsor visitors in most situations. Similiar to time spent indoors at other locations, there is the chance that you were exposed to repiratory viruses during your time with us (such as flu or COVID-19). If you develop symptoms concerning for a viral respiratory infection, please seek testing (and treatment if indicated) from your medical provider or home test kit. ?? You can view and manage your care through the patient portal or by using a health care megan of your choosing. [employer] is a website that allows you to securely view your medical information including your hospital discharge summary, office visit summaries, medications and follow-up visits. You can also request appointments, renew medications, and request access to your medical information using a health care megan of your choosing, or just ask a question. You can enroll at [email or web address] or register during your next office visit. You have been discharged from [facility], Patient Care Unit: S1??. If you have any questions regarding these instructions, including results of studies pending, afteryou leave, please call us and we will be happy to assist you 23/05. [facility] Your Care Team Attending Physician Rickey Nguyen MD?? Consulting Providers Rickey Nguyen MD?? Discharging Providers Rickey Nguyen MD Reason for Your Visit Pt snorted unknown substance- became unresponsive- cpr x 5 minutes started by bystanders- Nausea noted- upon ems arrival- resp of 2- pt was bagged.?? Your Diagnosis Opioid use disorder, severe, dependence Toxic encephalopathy Cocaine use disorder, severe, dependence Acute kidney injury Cannabis use disorder, moderate Essential hypertension Cellulitis of left foot Cirrhosis of liver Tests Performed Below is a partial list of the tests performed during your hospitalization. You may have had other tests and procedures not included in this list. Please discuss all test results with your provider. Amphetamine Urine Screen Barbiturate Urine Screen Basic Metabolic Panel Benzodiazepine Urine Screen Cannabinoid Urine Screen CBC CBC w/ Differential Cocaine Urine Screen Comprehensive Metabolic Panel COVID-19, RSV, and Flu A/B, Rapid PCR CRP ESR ETHANOL GLUCOSE POC High??Sensitivity??Troponin T HOLD BLUE TUBE HOLD LAMBERT TUBE Lactate Level Magnesium Level Opiate Screen Urine Phosphorus Level PROBNP Troponin T, High Sensitivity Doppler Ext Lower Venous Left (US) Foot Min 3 Views Left XR Chest Portable Add On Lab Order?? Blood Culture?? Blood Culture #2?? Complete Urinalysis (UA)?? Primary Care Provider Claude Choi MD? Discharge Vitals Temperature: 98.9 DegF Height: 170 cm Pulse Rate: 81 bpm Weight: 61.6 kg Respiratory Rate: 18 br/min Body Mass Index: 21.31 kg/m2 Systolic Blood Pressure:??152 mm Hg??High Body surface area: 1.71 Diastolic Blood Pressure: 81 mm Hg ?? Oxygen Saturation: 98 % ?? Studies Pending All studies ordered during this hospital stay have been completed unless listed below. Please discuss all pending results with your provider listed above in these instructions. ?? Add On Lab Order?? Blood Culture?? Blood Culture #2?? Complete Urinalysis (UA)?? What to do next Instructions From Your Doctor You are admitted for opioid overdose and left foot soft tissue infection (cellulitis), you agree tostart Suboxone with last dose given today prior to discharge, you will be prescribed with 3 days ofSuboxone 8 mg daily starting on Tuesday12/04/2023, and follow up outpatient clinic for refill as below:? [facility] [address] [place] [id number] Appointment: Tuesday12/07/2023 at 1:45pm for Suboxone. ?? Please??complete??14 days??of??oral??antibiotics (Keflex) for left foot infection, apply mupirocin ointment to small open area on the toes and cover with gauze, apply 3 times a day, change the dressing as needed for soliage;? Your blood pressure is uncontrolled and please resume lisinopril upon discharge, monitor blood pressure reading at home and review with primary care provider to make adjustment as needed;? You may use acetaminophen up to 2000 mg over 24 hours for milder pain (do not exceed this limit to avoid life-threatening liver failure);??Please avoid ibuprofen, naproxen, diclofenac or other zloj-kbe-zalujek analgesics collectively called NSAIDs as these medications may trigger kidney injury; ?? Return to nearest emergency room or call 911??if you experience fever T>100.4F, chill, chest pain lasts longer than 10 minutes, shortness of breathing with minimal exertion, worsening or more constant abdominal pain, nausea/vomiting, food intolerance, bloody or tarry stool, extreme fatigue or dizziness, worsening pain, redness, pain??or purulent discharge from left foot,??or other severe and/or persistent symptoms. ?? Orders??:Cardiac diet :Ambulate with assistance ??3 times a day ??unless otherwise specified Status: ??Full Resuscitation :Stable :Fair? 12/03/23 11:21:00 EST?? Prescriptions??, ??12/03/23 11:21:00 EST?? You Need to Schedule the Following Appointments Follow Up with??Jimbo STUART, Claude Márquez When:??Within 2 to 3 weeks Where: ?? Discharge Medications JOVAN LOPEZ :1955 Visit Date:12/01/2023 Medications: Please continue your medications until treatment is completed or stopped by your provider. Medications not listed below should be discontinued. Discuss any questions related to medications with your provider. What How Much When Instructions Next Dose New Buprenorphine-Naloxone (buprenorphine-naloxone 8 mg-2mg sublingual film) 1 Film Sublingual Daily Duration: 3 Days Pickup at [place] [address] tomorrow 12/04/2023 New Cephalexin (cephalexin monohydrate 500 mg oral capsule) 1 capsule Oral 4 times a day Duration: 14 Days Pickup at [place] [address] tonight at 10pm New Lidocaine Topical (lidocaine 4% topical cream) 1 megan Topically Twice a day Duration: 5 Days apply on front chest tender area, do not apply on open wound, not to exceed 3 applications in 24 hours. ?? Pickup at [place] [address] New Mupirocin Topical (mupirocin 2% topical ointment) 1 megan Topically 3 times a day Duration: 5 Days apply a thin film on left foot toes open area, cover with gauze ?? Pickup at [place] [address] New nalOXONE (Narcan 4 mg/ 0.1 mL nasal spray) 4 Milligram Naris, Left Once as needed for Other To reverse opioid overdose, may repeat every 2 to 3 minutes until patient responds, call 911 in the meantime ?? Pickup at [place] [address] as needed New Ondansetron (ondansetron 4 mg oral tablet, disintegrating) 1 tab(s) Oral Every 8 hours as needed for as needed for nausea/vomiting Pickup at [place] [address] tonight at 11pm Changed Lisinopril (lisinopril 40 mg oral tablet) 1 tab(s) Oral Daily Pickup at [place] [address] tomorrow 12/04/2023 Pharmacy Information [place] [address]: [address] [place], [place] [id number] [phone] ?? What How Much When Comments Stop Taking Chlorthalidone (chlorthalidone 25 mg oral tablet) 1 tab(s) Oral Daily Duration: 30 Days Stop Taking Magnesium Oxide (magnesium oxide 400 mg oral tablet) 1 tab(s) Oral Daily Stop Taking Pantoprazole (pantoprazole 40 mg oral delayed release tablet) 1 tab(s) Oral Daily as needed for heartburn only as needed for symptoms. ?? Stop Taking Sildenafil (sildenafil 100 mg oral tablet) 1 tab(s) Oral Daily as needed for for erectile dysfunction Prescription Given During Visit Buprenorphine-Naloxone (buprenorphine-naloxone 8 mg-2 mg sublingual film) - 1 film, Sublingual, Daily, # 3 film, 0 Refills, [place] [address] [phone]?? Cephalexin (cephalexin monohydrate 500 mg oral capsule) - 1 capsule = 500 mg, By Mouth, 4 times a day, # 56 capsule, 0 Refills, [place] [address] [id number]?? Lidocaine Topical (lidocaine 4% topical cream) - 1 application, Topically, 2 times a day, # 15 Gm, 0 Refills, apply on front chest tender area, do not apply on open wound, not to exceed 3 applications in 24 hours., [place] [address] [phone]?? Lisinopril (lisinopril 40 mg oral tablet) - 1 tablet = 40 mg, By Mouth, Daily, # 90 tablet, 0 Refills, [place] [address] [phone]?? Mupirocin Topical (mupirocin 2% topical ointment) - 1 application, Topically, 3 times a day, # 22 Gm, 0 Refills, apply a thin film on left foot toes open area, cover with gauze, [place] [address] [phone]?? Ondansetron (ondansetron 4 mg oral tablet, disintegrating) - 1 tablet = 4 mg, By Mouth, Every 8 hours, # 20 tablet, 0 Refills, [place] [address] [phone]?? nalOXONE (Narcan 4 mg/0.1 mL nasal spray) - 4 mg, Naris, Left, Once, # 2 each, 0 Refills, To reverse opioid overdose, may repeat every 2 to 3 minutes until patient responds, call 911 in the meantime,[facility] [place] [address] [phone]?? Laboratory Results Below is a partial list of the most recent Laboratory test results done prior to this discharge. You may have had other tests and procedures not included in this list. Please discuss all test resultswith your provider. Est Creatinine Clearance - 51.33 mL/min (12/03/2023) Amphetamine Urine Screen (12/01/2023) ???Amphetamine Screen, Urine - NONE DETECTED Barbiturate Urine Screen (12/01/2023) ???Barbiturate Screen, Urine - NONE DETECTED Basic Metabolic Panel (12/03/2023) ???Sodium - 138 mmol/L???Potassium - 4.2 mmol/L???Chloride - 102 mmol/L???Bicarbonate Level - 24 mmol/L???Anion Gap - 12???Glucose Level - 87 mg/dL???BUN - 21 mg/dL???Creatinine-Blood - 1.2 mg/dL???Estimated GFR Creatinine - 67 ML/MIN/1.73 M2???Calcium - 9.0 mg/dL Benzodiazepine Urine Screen (12/01/2023) ???Benzodiazepine Screen, Urine - NONE DETECTED Cannabinoid Urine Screen (12/01/2023) ???Cannabinoid Screen, Urine - POSITIVE CBC (12/03/2023) ???WBC - 11.2 k/mm3???RBC - 3.83 m/mm3???Hgb - 10.8 Gm/dL???Hct - 34.0 %???MCV - 88.8 femtoliters???MCH - 28.2 pg???MCHC - 31.8 g/dL???Platelet Count - 267 k/mm3???RDW-SD - 41.9 femtoliters???MPV - 9.8 femtoliters???Nucleated RBC (Automated) - 0.0 #/100 WBC'S???Abs. NRBC - 0.0 k/mm3 CBC w/ Differential (12/01/2023) ???WBC - 9.5 k/mm3???RBC - 3.64 m/mm3???Hgb - 10.5 Gm/dL???Hct - 33.9 %???MCV - 93.1 femtoliters???MCH - 28.8 pg???MCHC - 31.0 g/dL???Platelet Count - 267 k/mm3???RDW-SD - 45.7 femtoliters???MPV - 9.2 femtoliters???Nucleated RBC (Automated) - 0.0 #/100 WBC'S???Abs. NRBC - 0.0 k/mm3???Abs. Neut - 5.4 k/mm3???Abs. Lymph - 2.7 k/mm3???Abs. Evangeline - 0.8 k/mm3???Abs. Eo - 0.5 k/mm3???Abs. Baso - 0.0 k/mm3???Neut % - 57.4 %???Lymph % - 28.8 %???Evangeline % - 8.5 %???Eos % - 4.7 %???Baso % - 0.3 %???Imm Gran- 0.3 %???Abs. Imm Gran - 0.0 k/mm3 Cocaine Urine Screen (12/01/2023) ???Cocaine Metabolite Screen, Urine - POSITIVE Comprehensive Metabolic Panel (12/01/2023) ???Sodium - 148 mmol/L???Potassium - 4.7 mmol/L???Chloride - 109 mmol/L???Bicarbonate Level - 27 mmol/L???Anion Gap - 12???Glucose Level - 96 mg/dL???BUN - 29 mg/dL???Creatinine-Blood - 1.5 mg/dL???Estimated GFR Creatinine - 50 ML/MIN/1.73 M2???Calcium - 9.7 mg/dL???Protein, Total - 7.6 Gm/dL???Albu min - 4.5 Gm/dL???AG Ratio - 1.5???Alkaline Phosphatase - 95 units/L???AST (SGOT) - 31 units/L???ALT (SGPT) - 16 units/L???Bilirubin, Total - 0.3 mg/dL COVID-19, RSV, and Flu A/B, Rapid PCR (12/01/2023) ???Influenza A PCR - NEGATIVE???Influenza B PCR - NEGATIVE???RSV PCR - NEGATIVE???COVID-19 PCR Specimen Source - NASAL???COVID-19 PCR Result - NEGATIVE CRP (12/02/2023) ???C-Reactive Protein - 2.9 mg/dL ESR (12/02/2023) ???Sed Rate - 56 mm/hr ETHANOL (12/01/2023) ???Ethanol, Serum or Plasma - NONE DETECTED GLUCOSE POC (12/01/2023) ???Glucose, POC - 119 mg/dL High??Sensitivity??Troponin T (12/01/2023) ???High Sensitivity Troponin (HSTnT) - 26 ng/L HOLD BLUE TUBE (12/01/2023) ???Hold Blue Top - SPECIMEN DISCARDED AFTER 4 HOURS. HOLD LAMBERT TUBE (12/01/2023) ???Hold Lambert Top - SPECIMEN DISCARDED AFTER 1 WEEK Lactate Level (12/02/2023) ???Lactate - 1.0 mmol/L Magnesium Level (12/02/2023) ???Magnesium - 1.8 mg/dL Opiate Screen Urine (12/01/2023) ???Opiate Screen, Urine - POSITIVE Phosphorus Level (12/02/2023) ???Phosphorus - 2.6 mg/dL PROBNP (12/01/2023) ???Nt-Probnp - 412 pg/mL Troponin T, High Sensitivity (12/02/2023) ???High Sensitivity Troponin (HSTnT) - 27 ng/L Allergies (NKA means No Known Allergies) Librium??(Vesiculobullous rash) acetaminophen??(swelling, Acute edema, Rash) amLODIPine??(Edema) hydrOXYzine??(Vesiculobullous rash) ibuprofen??(Vesiculobullous rash) Problems Active Problems??(20) Anxiety?? Arthritis?? Atherosclerosis of aorta- plaque on US?? Cannabis use disorder, moderate?? Cardiac murmur?? 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 Chronic sciatica of right side?? CKD (chronic kidney disease) stage 2, GFR 60-89 ml/min?? Depressive disorder?? Erectile dysfunction. Retrograde ejaculatoin?? Essential hypertension?? GERD (gastroesophageal reflux disease)?? 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 Low back pain?? Nerve disorder?? Opioid use disorder, severe, in early remission, on maintenance therapy, dependence?? Peptic ulcer without hemorrhage, without perforation AND without obstruction?? PTSD (post-traumatic stress disorder)?? Tobacco use disorder?? Urinary incontinence?? Education Materials Below is the list of Educational Leaflet Providered with your Discharge Instructions. Cephalexin Oral Capsule?? Zones Cellulitis?? Opiate Use Disorder?? Buprenorphine Discharge Instructions?? Valuables and Belongings I fully understand and agree that [facility] accepts no responsibility for all my personal property including clothing, toilet articles, radios, jewelry, dentures, hearing aids, rings, money, or any other property that is in my possession or is brought to me after admission. I understand certain valuables may be placed in a hospital safe for a short period of time. I understand that the hospital is not liable for loss or damage due to accident, fire, or other natural occurrence while said property is in the safe. I accept full responsibility for any personal property that I keep with me, and will not hold the hospital responsible in case of loss or disappearance. I acknowledge that i have been encouraged to send valuables and belongings home. ?? Date for Pt to Sign Valuables/Belongings: 12/02/23 20:00:00 ?? Other Discharge Information ? Pulmonary Rehab Status?? Pulmonary Rehab Discharge Status?? Respiratory Rate: 18 br/min ? Common Emergency Awareness Tips IS IT A STROKE? Act FAST and Check for these signs: FACE Does the face look uneven? ARM Does one arm drift down? SPEECH Does their speech sound strange? TIME Call at any sign of stroke ?? Heart Attack Signs Chest discomfort: Most heart attacks involve discomfort in the center of the chest and lasts more than a few minutes, or goes away and comes back. It can feel like uncomfortable pressure, squeezing, fullness or pain. Discomfort in upper body: Symptoms can include pain or discomfort in one or both arms, back, neck, jaw or stomach. Shortness of breath: With or without discomfort. Other signs: Breaking out in a cold sweat, nausea, or lightheaded. Remember, MINUTES DO MATTER. If you experience any of these heart attack warning signs, call to get immediate medical attention! ?? Smoking can increase your chances of developing chronic health problems and can cause harmful effects to other family members in your house. If you smoke, you are strongly encouraged to quit. Please call [facility] [employer] Link at [phone] or [phone] ([phone]) or log in to [email or web address] for referrals to smoking cessation programs. ?? 475 Suicide & Crisis Lifeline is available 23/05 if you or someone you know needs to find a reason to keep living. By calling 179 you'll be connected to a skilled, trained counselor at a crisis center in your area. INPATIENT DISCHARGE INSTRUCTIONS SIGNATURE PAGE MELISSA JOVAN Location:[facility] Registration Date and Time:12/01/2023 23:18 EST Primary Care Physician: Jimbo STUART, Claude Márquez, Attending Physician: Rickey Nguyen MD, I JOVAN LOPEZ, have received the above patient education materials/instructions and have verbalized understanding. If ambulance or transport services are being used I further acknowledge being given a choice of service. ?? If you need to contact me, please call me at this number: . Patient/Box Attacher Name: Patient/Box Attacher Signature: Relationship to Patient: Witness Name/Signature: Date: * Belkis White RN: PERFORM Event Display: Patient Education Leaflets Authored Date: [id number] Naloxone Nasal [place] ?? [id number] Naloxone Nasal [place] Brands: Kloxxado, Narcan Uses For drug overdose. ?? Instructions Alternate nostrils each time you use the medicine. Keep the medicine at room temperature. Avoid heat and direct light. This medicine should only be used by a person who has been trained to recognize when and how it should be used. Ask your doctor, nurse or pharmacist to show you how to use this medicine correctly. Family, friends, and coworkers should all learn how to give this medicine to the patient. Read and carefully follow package instructions for preparing, using and cleaning the pump. Leave the container in the box until a dose is needed. Get medical help right away after giving the first dose. If symptoms return, use another dose in the other nostril every 2-3 minutes. Change sides of the nose with each dose. Drug interactions can change how medicines work or increase risk for side effects. Tell your healthcare providers about all medicines taken. Include prescription and trpo-ryo-pjojtgb medicines, vitamins, and herbal medicines. Speak with your doctor or pharmacist before starting or stopping any medicine. Do not share this medicine with anyone who has not been prescribed this medicine. ?? Cautions Tell your doctor and pharmacist if you ever had an allergic reaction to a medicine. Your ability to stay alert or to react quickly may be impaired by this medicine. Do not drive or operate machinery until you know how this medicine will affect you. Do not drink beverages with alcohol while on this medicine. Tell the doctor or pharmacist if you are , planning to be , or . ?? Side Effects The following is a list of some common side effects from this medicine. Please speak with your doctor about what you should do if you experience these or other side effects. ??? diarrhea ??? dry nose ??? fever or chills ??? headaches ??? high blood pressure ??? pain in thejoints ??? irritation inside the nose ??? nausea ??? rapid heartbeat ??? runny nose ??? shakiness ??? sneezing ??? stomach pain Call your doctor or get medical help right away if you notice any of these more serious side effects: ??? seizures A few people may have an allergic reaction to this medicine. Symptoms can include difficulty breathing, skin rash, itching, swelling, or severe dizziness. If you notice any of these symptoms, seek medical help quickly. ?? Extra Please speak with your doctor, nurse, or pharmacist if you have any questions about this medicine. ?? [email or web address] IMPORTANT NOTE: This document tells you briefly how to take your medicine, but it does not tell youall there is to know about it. Your doctor or pharmacist may give you other documents about your medicine. Please talk to them if you have any questions. Always follow their advice. There is a more complete description of this medicine available in Tristanian. Scan this code on your smartphone or tablet or use the web address below. You can also ask your pharmacist for a printout. If you have any questions, please ask your pharmacist. The display and use of this drug information is subject to Terms of Use. Copyright(c) 2022 [employer]. ?? [employer]. All rights reserved. This information is not intended as a substitute for professional medical care. Always follow your healthcare professional's instructions. ?? * Rickey Nguyen MD: PERFORM Event Display: Patient Education Leaflets Authored Date: [id number] Cephalexin Oral Capsule ?? 9898-11 Cephalexin Oral Capsule Brands: Keflex Uses For treating bacterial infection. ?? Instructions This medicine may be taken with or without food. Keep the medicine at room temperature. Avoid heat and direct light. If you forget to take a dose on time, take it as soon as you remember. If it is almost time for thenext dose, do not take the missed dose. Return to your normal schedule. Do not take 2 doses at one time. Tell your doctor and pharmacist about all your medicines. Include prescription and chca-mpm-eokcmlmssxouwbev, vitamins, and herbal medicines. Keep using this medicine for the full number of days that it is prescribed. Do not stop the medicine even if you start to feel better. If you have diabetes and use urine glucose tests, this medicine may cause incorrect results. Pleasecheck with your doctor before making any changes to your diabetes treatment plan. ?? Cautions Tell your doctor and pharmacist if you ever had an allergic reaction to a medicine. Do not use the medication any more than instructed. Please tell your doctor if you have moderate to severe diarrhea while on this medicine. Do not treat the diarrhea with awrq-tuq-zwolxvl diarrhea medicine. Tell the doctor or pharmacist if you are , planning to be , or . Do not start or stop any other medicines without first speaking to your doctor or pharmacist. Do not share this medicine with anyone who has not been prescribed this medicine. ?? Side Effects The following is a list of some common side effects from this medicine. Please speak with your doctor about what you should do if you experience these or other side effects. ??? diarrhea ??? nausea and vomiting ??? stomach upset or abdominal pain ??? yeast infection of mouth ??? vaginal itching or yeast infection Call your doctor or get medical help right away if you notice any of these more serious side effects: ??? severe, watery or bloody diarrhea A few people may have an allergic reaction to this medicine. Symptoms can include difficulty breathing, skin rash, itching, swelling, or severe dizziness. If you notice any of these symptoms, seek medical help quickly. ?? Extra Please speak with your doctor, nurse, or pharmacist if you have any questions about this medicine. ?? [email or web address] IMPORTANT NOTE: This document tells you briefly how to take your medicine, but it does not tell youall there is to know about it. Your doctor or pharmacist may give you other documents about your medicine. Please talk to them if you have any questions. Always follow their advice. There is a more complete description of this medicine available in [employer]istanian. Scan this code on your smartphone or tablet or use the web address below. You can also ask your pharmacist for a printout. If you have any questions, please ask your pharmacist. The display and use of this drug information is subject to Terms of Use. Copyright(c) 2022 [employer]. ?? [employer]. All rights reserved. This information is not intended as a substitute for professional medical care. Always follow your healthcare professional's instructions. ?? * Rickey Nguyen MD: PERFORM Event Display: Patient Education Leaflets Authored Date: [id number] Zones Cellulitis ?? 349 CELLULITIS ZONES EVERY DAY Taking Care of Yourself with Cellulitis Cellulitis is an infection of the layers of your skin. The infection may also spread to the tissue under your skin. Cellulitis is caused by germs called bacteria. The germs can enter your skin through an opening, such as from a bite, rash, scratch, or a cut. EVERY DAY: ??? Take your medicine as prescribed by the doctor. Complete all antibiotics even if you are feeling better. Do not miss a dose. ??? Keep an updated med list with you. ??? Be sure to make a visit with your doctor/nurse within a few days. ??? Wash your hands often and wash towels with hot water and soap or bleach after each use to kill the germs. ??? Do not share personal items (example: razors ortowels). ??? Take care of your skin. Use lotion to keep skin from drying out. ??? Raise affected arm or leg above the level of your heart when able in order to lessen swelling. ??? Limit the use of the affected body part since excess movement can cause the infection to spread. Which Zone are you today? GREEN, YELLOW, or RED? GREEN ZONE ALL CLEAR - This zone is your goal Your symptoms are under control when: ??? You have little to no pain. ??? Your swelling, warmth, pain, and/or redness of area are decreasing. ??? You have no fever or temperature greater than 100.4 F???. YELLOW ZONE ?? STOP & CALL CAUTION - This zone is a warning.?? If you have any of the following: Call your Doctor/Nurse: ??? You have a fever or temperature over 100.4 F???, feel weak, or feel dizzy. ??? Your pain, redness, or swelling is increasing. ??? Your symptoms are not improving after 3 days of being on antibiotics. ??? You have questions about Cellulitis or your medicine. ??? Drainage noted or change in color or odor. RED ZONE EMERGENCY: Speak with a Doctor/Nurse promptly if you have any of the following: (Do not drive yourself) ??? You have a high fever with shaking chills. ??? You have pus, mucous or bad smelling drainage coming from your affected area. ??? Increasing pain or swelling. ? Patient Care team information Care Team Personnel Name: Zora Butterfield Position: S RN Member Role: Primary Care Nurse Name: Belkis White RN Position: S RN Member Role: Primary Care Nurse Name: Claude Choi MD Position: S Physician - Primary Care Member Role: PCP Address: Address: [address] [place] [address] Name: Radha Oro RN Position: [facility] RN Member Role: Primary Care Nurse Care Team Related Persons Name: PALMIRA MCGILL Address: home [address] [address] Name: SANDRITA BROOKS Address: [address] [address] Name: JD BROOKS Name: MANOHAR LYNN Name: HOLLY LOPEZ Address: home [address] [place] [address]
--- OUTSIDE RECORDS SUMMARY | 2023-12-11 06:39 | XMS_ITS | Continuity of Care Document ---
Author Name Unknown Organization [facility] Address Unknown Care Team Providers Care Electronic Assembler Group Leader Name Role Phone Claude Choi MD Primary Care Physician [place] [facility] [place]/22 [facility] Attending Physician: Claude Choi MD Admitting [...] 12/30/20 17:02:00 EST, Route to Pharmacy Electronically, [facility], home delivery, 168, cm, 12/30/20 14:40:... Start Date: 12/30/20 Status: Ordered buPROPion 300 mg/24 hours (XL) oral tablet, extended release 1 tablet = 300 mg, By Mouth, Daily, # 90 tablet, 3 Refills, Maintenance, 11/26/21 15:45:00 EST, ER Tablet, [facility], Partial fill upon patient request if the [...] 12/17/21 15:50:00 EST, Route to Pharmacy Electronically, [facility], 168, cm, 12/17/21 14:54:00 EST, Height, 64.09, [...] 3 Refills, Maintenance, 11/26/21 16:01:00 EST, Tablet, [facility], Partial fill upon patient request if the prescription is for a schedule II opioid drug., 168, cm, ... Start Date: 11/26/21 Status: Ordered magnesium oxide 400 mg oral tablet 1 tablet = 400 mg, By Mouth, Daily, # 90 tablet, 3 Refills, Maintenance, 10/21/21 13:24:00 EST, [facility], home delivery, 168, cm, 10/20/21 16:08:00 EST, Height, 64.09, kg, 07/29/20 13:46:00 EDT, Dry Weight Start Date: 10/21/21 Status: Ordered Mavyret 100 mg-40 mg oral tablet 3 tablet, By Mouth, Daily, x 8 weeks total, # 84 tablet, 1 Refills, Maintenance, 12/03/21 0:17:00 EST, [facility], 3 tablet By Mouth Daily,Instr:x 8 weeks total, 168, cm, 11/26/21 15:20:00 EST, Height, 64.09, kg, 07/29/20 13:46:00 EDT... Start Date: 12/03/21 Status: Ordered multivitamin Multiple Vitamins oral tablet 1 tablet, By Mouth, Daily, b complex, # 90 tablet, 3 Refills, Maintenance, 12/17/21 15:56:00 EST, [facility], 1 tablet By Mouth Daily,Instr:b complex, 168, [...] 11 Refills, Maintenance, 11/26/21 15:55:00 EST, Tablet, [facility], Partial fill upon patient requestif the [...]
--- OUTSIDE RECORDS SUMMARY | 2023-12-11 06:39 | XMS_ITS | Continuity of Care Document ---
Author Name Unknown Organization [facility] Address [address] [place] [address]- Care Team Providers Care Stationary Fireman Name Role Phone Jimbo STUART, Claude Márquez Primary Care Physician [phone] [place] [facility] [place](s): 11/24/22 - 02/26/23 [facility]/[place] [address]- Attending Physician: Claude Choi MD Admitting Physician: Claude Choi MD Allergies, Adverse Reactions, Alerts Substance Reaction Severity Status ibuprofen Vesiculobullous rash Active acetaminophen swelling Acute edema Rash Active hydrOXYzine Vesiculobullous rash Active Librium Vesiculobullous rash Active amLODIPine Edema Active Immunizations Given and Recorded Vaccine Date Status Refusal Reason [id number] 12y+ bivalent booster vax 09/02/22 Given influenza [...] 11/23/22 23:08:00 EST, Route to Pharmacy Electronically, [facility]acy #[id number], 168, cm, 11/23/22 15:18:00 [...] 3 Refills, Maintenance, 11/23/22 23:08:00 EST, Tablet, [facility]/pharmacy #[id number], Partial fill upon patient request if the prescription is for a schedule II opioid drug., 168, cm, 11/23/22 15:18:... Start Date: 11/23/22 Status: Ordered magnesium oxide 400 mg oral tablet 1 tablet = 400 mg, By Mouth, Daily, # 90 tablet, 3 Refills, Maintenance, 11/23/22 23:08:00 EST, [id number], home delivery, 168, cm, 11/23/22 15:18:00 EST, Height, 65.45, kg, 11/23/22 15:18:00EST, Dry Weight Start Date: 11/23/22 Status: Ordered multivitamin Multiple Vitamins oral tablet 1 tablet, By Mouth, Daily, b complex, # 90 tablet, 3 Refills, Maintenance, 09/02/22 15:52:00 EDT, [facility], 1 tablet By Mouth Daily,Instr:b complex, 168, [...] remission, on maintenance therapy, dependence Confirmed Active *[id number] alina Wojcicki Confirmed Active Peptic ulcer without hemorrhage, without perforation AND without obstruction Confirmed Active Cannabis use disorder, moderate Confirmed Active Tobacco use disorder Confirmed Active Urinary incontinence Confirmed Active Social History Social History Type Response Tobacco Other: a pack a day. Sex Patient Care team information Care Team Personnel Name: Claude Choi MD Position: [facility] Primary Care Physician Member Role: PCP Address: Address: [address] [place] [address]- Care Team Related Persons Name: PALMIRA MCGILL Address: home [address] [facility] [address] [place] [address] Name: SANDRITA BROOKS Address: home [address] [address] Name: JD BROOKS Name: MANOHAR LYNN
--- OUTSIDE RECORDS SUMMARY | 2023-12-11 06:39 | XMS_ITS | Continuity of Care Document ---
Author Name Unknown Organization [facility] Address [address] [place] [address]- Care Team Providers Care Card Cutter Helper Name Role Phone Claude Choi MD Primary Care Physician [phone] Encounter [facility] Date(s): 10/29/20 - 12/15/[address] [address] Attending Physician: Claude Choi MD [...] 07/15/20 18:27:00 EDT, Route to Pharmacy Electronically, [facility]/pharmacy #[id number],168, cm, 12/26/19 10:09:00 EST, Height, 74.54, kg,... [...] 07/29/20 15:02:00 EDT, Route to Pharmacy Electronically, [facility], home delivery, 168, cm, 07/29/20... Start Date: 07/29/20 Status: Ordered magnesium oxide 400 mg oral tablet 1 tablet = 400 mg, By Mouth, Daily, # 30 tablet, 5 Refills, Maintenance, 07/15/20 18:17:00 EDT, [facility], home delivery, 168, cm, 12/26/19 10:09:00 EST, Height, 74.54, kg, 12/26/19 10:09:00 EST, Dry Weight Start Date: 07/15/20 Status: Ordered nadolol 20 mg oral tablet 20 mg, 1, tablet, By Mouth, Daily, dose increase, # 30 tablet, Refills 5, Tot. Refills 5, Maintenance, 07/29/20 15:04:00 EDT, Route to Pharmacy Electronically, [facility], home delivery, 168, cm, 07/29/20 13:46:00 EDT, Height, 64.0... Start Date: 07/29/20 Stop Date: 01/25/21 Status: Ordered nadolol 20 mg oral tablet 10 mg, 0.5, tablet, By Mouth, Daily, for 30 days, # 15 tablet, Refills 5, Tot. Refills 5, Hard Stop12/20/20 11:12:00 EST, 06/23/20 11:12:00 EDT, Route to Pharmacy Electronically, [facility], home delivery, 168, cm, 12/26/19 10:09:... [...]
--- OUTSIDE RECORDS SUMMARY | 2023-12-11 06:39 | XMS_ITS | Continuity of Care Document ---
Author Name Unknown Organization [facility] Address [address] [place] [address]- Care Team Providers Care Superintendent Concrete Mixing Plant Name Role Phone Claude Choi MD Primary Care Physician Encounter [facility] Date(s): 09/05/22 - 10/05/22 [facility]/[place] [address]- [place] Allergies, Adverse Reactions, Alerts Substance Reaction Severity Status ibuprofen Vesiculobullous rash Active acetaminophen swelling Acute edema Rash Active hydrOXYzine Vesiculobullous rash Active Librium Vesiculobullous rash Active amLODIPine Edema Active Immunizations Given and Recorded Vaccine Date Status Refusal Reason [id number] 12y+ bivalent booster vax 09/02/22 Given influenza [...] by Thaddeus Uriostegui MD [facility] Medications buPROPion 300 mg/24 hours (XL) oral tablet, extended release 1 tablet = 300 mg, By Mouth, Daily, # 90 tablet, 3 Refills, Maintenance, 11/26/21 15:45:00 EST, ER Tablet, [facility], Partial fill upon patient request if the [...] 12/17/21 15:50:00 EST, Route to Pharmacy Electronically, [facility], 168, cm, 12/17/21 14:54:00 EST, Height, 64.09, [...] 3 Refills, Maintenance, 09/02/22 15:53:00 EDT, Tablet, [facility], Partial fill upon patient request if the prescription is for a schedule II opioid drug., 168, cm, ... Start Date: 09/02/22 Status: Ordered magnesium oxide 400 mg oral tablet 1 tablet = 400 mg, By Mouth, Daily, # 90 tablet, 3 Refills, Maintenance, 09/02/22 15:53:00 EDT, [facility], home delivery, 168, cm, 09/02/22 14:20:00 EDT, Height Start Date: 09/02/22 Status: Ordered Mavyret 100 mg-40 mg oral tablet 3 tablet, By Mouth, Daily, x 8 weeks total, # 84 tablet, 1 Refills, Maintenance, 12/03/21 0:17:00 EST, [facility], 3 tablet By Mouth Daily,Instr:x 8 weeks total, 168, cm, 11/26/21 15:20:00 EST, Height, 64.09, kg, 07/29/20 13:46:00 EDT... Start Date: 12/03/21 Status: Ordered multivitamin Multiple Vitamins oral tablet 1 tablet, By Mouth, Daily, b complex, # 90 tablet, 3 Refills, Maintenance, 09/02/22 15:52:00 EDT, [facility], 1 tablet By Mouth Daily,Instr:b complex, 168, [...] 11 Refills, Maintenance, 07/29/22 12:40:00 EDT, Tablet, [facility], 168, cm, 12/17/21 14:54:00 EST, Height, 64.09, [...] Team Personnel Name: Claude Choi MD Position: [facility] Primary Care Physician Member Role: PCP Address: Address: [address] [place] [address]- Care Team Related Persons Name: PALMIRA MCGILL Address: home [address] [facility] [address] [place] [address] Name: SANDRITA BROOKS Address: home [address] [facility] [address] [place] [id number] Name: JD BROOKS Name: MANOHAR LYNN
--- OUTSIDE RECORDS SUMMARY | 2023-12-11 06:39 | XMS_ITS | Continuity of Care Document ---
Author Name Unknown Organization [facility] Address [address] [place] [address]- Care Team Providers Care Residential Property Consultant Name Role Phone Claude Choi MD Primary Care Physician Encounter [facility] [place] Date(s): 03/10/21 - 04/09/21 [facility]/[address] [address]- Allergies, Adverse Reactions, Alerts Substance Reaction Severity [...] 12/30/20 17:02:00 EST, Route to Pharmacy Electronically, [facility] [place] delivery, 168, cm, 12/30/20 14:40:... Start Date: [...] 12/30/20 17:02:00 EST, Route to Pharmacy Electronically, [facility], home delivery, 168, cm, 12/30/20 14:40:00 EST, Height, 64.09, kg, 07/29/20... Start Date: 12/30/20 Status: Ordered magnesium oxide 400 mg oral tablet 1 tablet = 400 mg, By Mouth, Daily, # 90 tablet, 3 Refills, Maintenance, 12/30/20 17:02:00 EST, [facility], home delivery, 168, cm, 12/30/20 14:40:00 EST, Height, 64.09, kg, 07/29/20 13:46:00 EDT, Dry Weight Start Date: 12/30/20 Status: Ordered multivitamin Multiple Vitamins oral tablet 1 tablet, By Mouth, Daily, b complex, # 90 tablet, 3 Refills, Maintenance, 12/30/20 17:07:00 EST, [facility], 1 tablet By Mouth Daily,Instr:b complex, 168, cm, 12/30/20 14:40:00 EST, Height, 64.09, kg, 07/29/20 13:46:00 EDT, Dry We... Start Date: 12/30/20 Status: Ordered nadolol 20 mg oral tablet 20 mg, 1, tablet, By Mouth, Daily, dose increase, # 90 tablet, Refills 3, Tot. Refills 3, Maintenance, 01/25/21 15:04:00 EDT, Route to Pharmacy Electronically, [facility], home delivery, 168, cm, 12/30/20 14:40:00 EST, [...]
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
--- OUTSIDE RECORDS SUMMARY | 2023-12-11 06:39 | XMS_ITS | Continuity of Care Document ---
Author Name Unknown Organization [facility] Address Unknown Care Team Providers Care Educational Aid Name Role Phone Claude Choi MD Primary Care Physician Encounter [facility] Date(s): 02/04/22 - 03/06/22 [facility] Attending Physician: Viridiana Connor Admitting Physician: Viridiana [...] 12/30/20 17:02:00 EST, Route to Pharmacy Electronically, [facility], home delivery, 168, cm, 12/30/20 14:40:... Start Date: 12/30/20 Status: Ordered buPROPion 300 mg/24 hours (XL) oral tablet, extended release 1 tablet = 300 mg, By Mouth, Daily, # 90 tablet, 3 Refills, Maintenance, 11/26/21 15:45:00 EST, ER Tablet, [facility], Partial fill upon patient request if the [...] 12/17/21 15:50:00 EST, Route to Pharmacy Electronically, [facility], 168, cm, 12/17/21 14:54:00 EST, Height, 64.09, [...] 3 Refills, Maintenance, 11/26/21 16:01:00 EST, Tablet, [facility], Partial fill upon patient request if the prescription is for a schedule II opioid drug., 168, cm, ... Start Date: 11/26/21 Status: Ordered magnesium oxide 400 mg oral tablet 1 tablet = 400 mg, By Mouth, Daily, # 90 tablet, 3 Refills, Maintenance, 10/21/21 13:24:00 EST, [facility], home delivery, 168, cm, 10/20/21 16:08:00 EST, Height, 64.09, kg, 07/29/20 13:46:00 EDT, Dry Weight Start Date: 10/21/21 Status: Ordered Mavyret 100 mg-40 mg oral tablet 3 tablet, By Mouth, Daily, x 8 weeks total, # 84 tablet, 1 Refills, Maintenance, 12/03/21 0:17:00 EST, [facility], 3 tablet By Mouth Daily,Instr:x 8 weeks total, 168, cm, 11/26/21 15:20:00 EST, Height, 64.09, kg, 07/29/20 13:46:00 EDT... Start Date: 12/03/21 Status: Ordered multivitamin Multiple Vitamins oral tablet 1 tablet, By Mouth, Daily, b complex, # 90 tablet, 3 Refills, Maintenance, 12/17/21 15:56:00 EST, [facility], 1 tablet By Mouth Daily,Instr:b complex, 168, [...] Refills, Maintenance, 11/26/21 15:55:00 EST, Tablet, [facility], Partial fill upon patient requestif the [...]
--- OUTSIDE RECORDS SUMMARY | 2023-12-11 06:39 | XMS_ITS | Continuity of Care Document ---
Author Name Unknown Organization [facility] Address [address] [place] [address]- Care Team Providers Care Computer Engineering Professor Name Role Phone Claude Choi MD Primary Care Physician Encounter [facility] [place] Date(s): 01/05/21 - 04/02/21 [facility]/[address] [address]- Attending Physician: Claude Choi MD Admitting Physician: [...] 12/30/20 17:02:00 EST, Route to Pharmacy Electronically, [facility], [place] delivery, 168, cm, 12/30/20 14:40:... Start Date: 12/30/20 Status: Ordered Cane See Instructions, # 1 each, Refills 0, Tot. Refills 0, Maintenance, adjustable height cane. Dx: [email or web address] M54.31, 12/26/19 10:46:00 EST, Compound Start Date: [...] 12/30/20 17:02:00 EST, Route to Pharmacy Electronically, [facility], home delivery, 168, cm, 12/30/20 14:40:00 EST, Height, 64.09, kg, 07/29/20... Start Date: 12/30/20 Status: Ordered magnesium oxide 400 mg oral tablet 1 tablet = 400 mg, By Mouth, Daily, # 90 tablet, 3 Refills, Maintenance, 12/30/20 17:02:00 EST, [facility], home delivery, 168, cm, 12/30/20 14:40:00 EST, Height, 64.09, kg, 07/29/20 13:46:00 EDT, Dry Weight Start Date: 12/30/20 Status: Ordered multivitamin Multiple Vitamins oral tablet 1 tablet, By Mouth, Daily, b complex, # 90 tablet, 3 Refills, Maintenance, 12/30/20 17:07:00 EST, [facility], 1 tablet By Mouth Daily,Instr:b complex, 168, cm, 12/30/20 14:40:00 EST, Height, 64.09, kg, 07/29/20 13:46:00 EDT, Dry We... Start Date: 12/30/20 Status: Ordered nadolol 20 mg oral tablet 20 mg, 1, tablet, By Mouth, Daily, dose increase, # 90 tablet, Refills 3, Tot. Refills 3, Maintenance, 01/25/21 15:04:00 EDT, Route to Pharmacy Electronically, [facility], home delivery, 168, cm, 12/30/20 14:40:00 [...]
[2023-12-11 06:40] LABS: Amphetamine Screen Urine Not Detected (Not Detect); Barbiturates, Urine Not Detected (Not Detect); Benzodiazepines Screen Urine Not Detected (Not Detect); Cannabinoid Screen Urine POSITIVE (Not Detect); Cocaine Screen Urine POSITIVE (Not Detect); Fentanyl, urine POSITIVE (Not Detect); Opiate Screen Urine Not Detected (Not Detect); Phencyclidine Screen Urine Not Detected (Not Detect)
== END 2023-12-11 06:44 | disposition home or self-care (01) ==
PROVIDERS: Emergency Provider Internal Medicine; PCP Internal Medicine
DX: S09.90XA Unspecified injury of head, initial encounter (principal); F11.10 Opioid abuse, uncomplicated; F14.10 Cocaine abuse, uncomplicated; F12.10 Cannabis abuse, uncomplicated; R51.9 Headache, unspecified; M54.2 Cervicalgia; R94.31 Abnormal electrocardiogram [ECG] [EKG]; V47.5XXA Car driver injured in collision with fixed or stationary object in traffic accident, initial encounter; Y93.9 Activity, unspecified; Y92.410 Unspecified street and highway as the place of occurrence of the external cause; Y99.8 Other external cause status; Z79.899 Other long term (current) drug therapy
CPT/HCPCS: 70450; 72125; 80307; 93005; 99284; 99285

== ENCOUNTER → 2023-12-11 01:07 | Outpatient (BNV) | payer MEDICARE, SELFPAY | PROVIDERS: Emergency Provider Internal Medicine; PCP Internal Medicine; Visit Provider Internal Medicine | DX: R94.31 Abnormal electrocardiogram [ECG] [EKG] (principal) | CPT/HCPCS: 93010 ==